=== PATIENT | male | born 1940 | race Caucasian/White ===

== ENCOUNTER 2017-12-14 07:40 | Day surgery (SDC) | payer MEDICARE ==
[2017-12-09 14:45] VITALS: BMI 29.4
[~2017-12-14 07:40] MED LIST: LACTATED RINGERS 1,000 ML IV SCH; LIDOCAINE 1% 20 ML VIAL (10MG/ML) FOR IV START INTRADERMA PRN; MIDAZOLAM 2 MG/2 ML VIAL IV PRN
[2017-12-14 08:20] VITALS: RESP 16; TEMP 98.4
[2017-12-14] MEDS ORDERED: LIDOCAINE 1% INJ 10MG/ML (20 ML MDV) ONE (08:43)
[2017-12-14] MEDS ORDERED: PROPOFOL 10 MG/ML 20 ML VIAL IV ONE (08:43)
--- NOTE | 2017-12-14 08:51 | P.GSHP ---
History of Present Illness H&P Date: 12/14/17 Chief Complaint: History of colon polyps This is a 69-year-old male who presents today for colonoscopy. Patient has had previous colonoscopy performed and a 4 hole system he is found have a large flat polyps in the ascending colon near the Ileocecal valve. Past Medical History Past Medical History: Cancer, CVA/TIA, Hyperlipidemia, Hypertension, Sleep Apnea /CPAP/BIPAP Additional Past Medical History / Comment(s): HX OF COLON POLYPS, HX OF DIVERTICULITUS, TIA UNKNOWN WHEN, HX OF THYROID CA, HX OF BPH History of Any Multi-Drug Resistant Organisms: None Reported Past Surgical History: Bowel Resection, Prostate Surgery Additional Past Surgical History / Comment(s): THYROIDECTOMY, PARATHYROID SX, TRIGGER FINGER X1, NASAL POLYPS, TURP, ELISABET CATARACTS Past Anesthesia/Blood Transfusion Reactions: No Reported Reaction Smoking Status: Former smoker - Past Family History Mother Family Medical History: Cancer Additional Family Medical History / Comment(s): PANCREATIC Brother(s) Family Medical History: Cancer Additional Family Medical History / Comment(s): PROSTATE Medications and Allergies Home Medications Medication Instructions Recorded Confirmed Type Aspirin [Adult Low Dose Aspirin EC] 81 mg PO DAILY 12/09/17 12/09/17 History Atenolol [Tenormin] 50 mg PO QAM 12/09/17 12/09/17 History Donepezil [Aricept] 10 mg PO HS 12/09/17 12/09/17 History Fluticasone Nasal [place] [Flonase 2 spr EA NOSTRIL DAILY 12/09/17 12/09/17 History Nasal [place]] L.acidoph,Paracasei, B.lactis 1 each PO DAILY 12/09/17 12/09/17 History [Probiotic] Levothyroxine Sodium [Synthroid] 125 mcg PO SUTUWETHSA 12/09/17 12/09/17 History Levothyroxine Sodium [Unithroid] 1.5 tab PO MOFR 12/09/17 12/09/17 History Polyethylene Glycol 3350 [Miralax] 17 gm PO DAILY 12/09/17 12/09/17 History Sertraline [Zoloft] 50 mg PO QAM 12/09/17 12/09/17 History Simvastatin [Zocor] 10 mg PO HS 12/09/17 12/09/17 History Triamterene/Hydrochlorothiazid 1 each PO QAM 12/09/17 12/09/17 History [Triamterene-Hctz 37.5-25 mg Tb] amLODIPine [Norvasc] 5 mg PO HS 12/09/17 12/09/17 History Allergies Allergy/AdvReac Type Severity Reaction Status Date / Time meperidine Allergy Nausea & Verified 12/14/17 07:54 Vomiting clarithromycin [From Biaxin] AdvReac "chest Verified 12/14/17 07:54 pain" Surgical - Exam Vital Signs Temp Pulse Resp BP Pulse Ox 98.4 F 60 16 136/78 100 12/14/17 08:19 12/14/17 08:19 12/14/17 08:19 12/14/17 08:19 12/14/17 08:19 - General well developed, no distress - Eyes PERRL - ENT normal pinna - Neck no masses - Respiratory normal expansion - Cardiovascular Rhythm: regular - Abdomen Abdomen: soft, non tender Assessment and Plan Assessment: History of colon polyps. We'll perform colonoscopy.
--- NOTE | 2017-12-14 09:02 | P.OP ---
Date of Procedure: 12/14/17 Preoperative Diagnosis: History of polyps Postoperative Diagnosis: Diverticulosis No recurrent colon polyps Procedure(s) Performed: Colonoscopy Anesthesia: MAC Surgeon: Angel Phoenix Pathology: other (Colon polyps) Condition: stable Disposition: PACU Description of Procedure: The patient's placed on the endoscopy table in the lateral position. He received IV sedation. Digital rectal exam was performed which revealed no abnormalities. The flexible colonoscope was then placed patient anus and passed throughout the entire colon. The ileocecal valve was visualized. The ileocecal valve and ascending colon were carefully examined. The patient a previous flat polyp seen near the ileocecal valve. There was no evidence of any polyp recurrence on today's colonoscopy. The scope was then withdrawn and there were a few scattered diverticuli and ascending colon. The transverse colon was examined there were no polyps seen. There was a few scattered diverticula. Scope was then brought back the descending; and there was a few scattered diverticuli were. There is no unsteady polyps. The scope was brought back the rectum and this appeared normal. Scope was withdrawn for patient.
[2017-12-14 09:40] VITALS: BP 131/62; PULSE 50
== END 2017-12-14 09:49 | disposition home or self-care (01) ==
LOC: ORWHC2ENDO 07:40 → MERGE 08:45 → ORWHC2ENDO 09:49
PROVIDERS: ATTEND Surgery
DX: K57.30 Diverticulosis of large intestine without perforation or abscess without bleeding (principal); I10 Essential (primary) hypertension; E78.5 Hyperlipidemia, unspecified; K21.9 Gastro-esophageal reflux disease without esophagitis; E89.0 Postprocedural hypothyroidism; Z86.010 Personal history of colon polyps; Z79.82 Long term (current) use of aspirin; Z87.891 Personal history of nicotine dependence; Z86.73 Personal history of transient ischemic attack (TIA), and cerebral infarction without residual deficits; Z85.850 Personal history of malignant neoplasm of thyroid; Z79.51 Long term (current) use of inhaled steroids; Z88.5 Allergy status to narcotic agent; Z88.1 Allergy status to other antibiotic agents
CPT/HCPCS: 45378; J2001; J2704

== ENCOUNTER → 2018-01-18 | Outpatient (CLI) | payer MEDICARE ==
--- NOTE | 2018-01-18 15:17 | CT ---
EXAMINATION TYPE: CT sinus wo con DATE OF EXAM: 01/18/2018 COMPARISON: NONE HISTORY: Sinusitis, polyps CT DLP: 632 mGycm CONTRAST: None The paranasal sinuses are examined in the axial plane at 2 mm thick sections. Reconstructed images i n the coronal plane were obtained. There is a retention cyst within the right maxillary sinus. Prior ethmoidectomies have been performed . There is diffuse mucosal thickening within ethmoid air cells bilaterally is may be slightly greater in the posterior left ethmoid air cells. The sphenoid sinuses are clear. Mild mucosal thickening i s within the left frontal sinus. The septum is evaluated. There is septal deviation to the right. The ostiomeatal units are patent. Prior uncinectomies are evident. IMPRESSIONS: 1. Mucosal thickening through ethmoid air cell regions, the left frontal sinus, in the right maxilla ry sinus. Some chronic sinusitis could be considered.
== END | disposition home or self-care (01) ==
LOC: RADCTMAIN 13:14
PROVIDERS: ATTEND Otolaryngology
DX: J32.0 Chronic maxillary sinusitis (principal); Z88.5 Allergy status to narcotic agent
CPT/HCPCS: 70486

== ENCOUNTER 2018-02-02 09:22 | Day surgery (SDC) | payer MEDICARE ==
[2018-01-27 13:08] VITALS: BMI 29.4
[~2018-02-02 09:22] MED LIST changes: +DEXAMETHASONE SOD PHOSPHATE 10 MG/ML 1 ML VIAL IV ONE; +DEXAMETHASONE SOD PHOSPHATE 4 MG/ML 1 ML VIAL IV ONE; +FAMOTIDINE 20 MG/2 ML VIAL IV ONE; -LIDOCAINE 1% 20 ML VIAL (10MG/ML) FOR IV START INTRADERMA PRN; +MELOXICAM 7.5 MG TAB PO ONE; +ONDANSETRON 4 MG/2 ML VIAL IVP ONE; +ceFAZolin 1,000 MG in DEXTROSE/WATER 1 50ML.BAG IV ONE; +fentaNYL (PF) 50 MCG/ML 2 ML AMP IV PRN
[2018-02-02] MEDS: OXYMETAZOLINE 0.05% NASL SPRAY 1 SPRAY BOTTLE NASAL ONE ×6 (09:54→15:20)
[2018-02-02] MEDS ORDERED: LIDOCAINE 1% 20 ML VIAL (10MG/ML) FOR IV START INTRADERMA ONE (10:01)
[2018-02-02] MEDS ORDERED: fentaNYL (PF) 50 MCG/ML 2 ML AMP ONE (11:15)
[2018-02-02] MEDS ORDERED: GLYCOPYRROLATE 0.2 MG/ML 2 ML VIAL ONE (11:15)
[2018-02-02] MEDS ORDERED: LIDOCAINE 1% INJ 10MG/ML (20 ML MDV) ONE (11:15)
[2018-02-02] MEDS ORDERED: PROPOFOL 10 MG/ML 20 ML VIAL IV ONE (11:15)
[2018-02-02] MEDS ORDERED: NEOSTIGMINE 1 MG/ML 10 ML VIAL ONE (11:15)
[2018-02-02] MEDS ORDERED: MIDAZOLAM 2 MG/2 ML VIAL ONE (11:15)
[2018-02-02] MEDS ORDERED: EPINEPHrine 1 MG/ML (MDV) 30 ML VIAL IRRIGATION ONE (11:55)
[2018-02-02] MEDS ORDERED: LIDOCAINE 1%-EPI 1:100,000 20 ML VIAL SQ ONE (11:55)
[2018-02-02] MEDS ORDERED: BUPIVACAINE (PF) 0.5% 30 ML VIAL SQ ONE (11:56)
[2018-02-02] MEDS ORDERED: FLUORESCEIN STRIPS 1 MG STRIP MISCELLANE ONE (11:56)
[2018-02-02] MEDS ORDERED: LACTATED RINGERS 1,000 ML IV ONE (12:40)
[2018-02-02 13:05] VITALS: TEMP 97.5
--- NOTE | 2018-02-02 13:09 | P.OP ---
Date of Procedure: 02/02/18 Preoperative Diagnosis: Chronic pansinusitis Sinonasal polyposis Deviated nasal septum Hypertrophy of bilateral inferior nasal turbinates Postoperative Diagnosis: Same Procedure(s) Performed: Bilateral functional endoscopic sinus surgery with insertion of propel and propel mini Septoplasty Polypectomy Bilateral submucosal resection of the inferior turbinates with outfracturing compression Anesthesia: MITZY Surgeon: Gabriel Cr Estimated Blood Loss (ml): 20 Pathology: other (sinonasal) Condition: stable Disposition: PACU Indications for Procedure: This patient is intolerant of his CPAP because of his persistent nasal obstruction he has no sense of smell is constant discolored drainage nasal congestion headaches facial pain etc. has had a lot of forehead pain in particular frontal sinuses and particularly has been tender. The patient's been on multiple antibiotics nasal sprays with no improvement he been on Flonase nasal spray and antibiotics with no improvement. After long discussion he wishes to proceed forward with a bilateral functional endoscopic sinus surgery with insertion of propel many's and propel along with a septoplasty and turbinate surgery. All risks, benefits, and alternative therapies were discussed. Consent was obtained and all questions were answered. Operative Findings: Patient had a deviated nasal septum widespread sinonasal polyposis and evidence of chronic pansinusitis. Large amount of pus and polyps were removed the frontal sinuses bilaterally. To maintain patency propel inserts were placed. Description of Procedure: This patient was taken to the operative room and placed in the supine position. A general inhalation anesthetic was administered to the patient by the department of anesthesia with a functioning IV line in place. The patient was monitored throughout the entire case by the department of anesthesia. The eyes were taped shut for protection. The patient was placed in a slight reverse Trendelenburg position. The patient had previously utilize Afrin nasal spray preoperatively. The nose was evaluated and the septum lateral nasal wall and inferior turbinates were injected with lidocaine 1% with epinephrine 1 100,000 bilaterally. Approximately 10 minutes were allowed wait for full vasoconstrictive effects to take place. At this point a caudal incision was made over the caudal portion of the left septum down to the mucoperichondrium. A mucoperichondrial flap was elevated on the left side and dissection was carried with use of tunnels posteriorly. We then made a crossover incision through the cartilage to the contralateral side and for the mucoperichondrial flap development was performed to the extent of visualization on the contralateral side. After the cartilage was freed with use of several crosshatching incisions and removal of some redundant strips of septal cartilage, the septum was straightened and placed back in the midline. The septum was sutured fixated to the ovarian groove. Excellent straightening occurred and the septum was visibly straight. Incision was closed with a 40 rapid Vicryl. We utilized a running nonlocking fashion for closure of the incision. A quilting stitch was used to reapproximate the septal flaps with use of a 40 rapid Vicryl. We then entered the nose with a 0 and 30 [employer] meanuel endoscope. Previous to this we did inject the lateral nasal wall and middle turbinate and uncinate process with lidocaine 1% with epinephrine 1 100,000. Approximately 10 minutes were allowed wait for full vasoconstrictive effects to take place. Intranasal polyps were noted. They were noted bilaterally. The intranasal polyps were removed with use of a microdebrider. With use of a microdebrider and a pediatric backbiter, we took down the uncinate process bilaterally. We then opened the maxillary sinuses bilaterally. We utilized a microdebrider for this and entered the maxillary sinuses and removed diseased tissue and polypoid tissue. This was done bilaterally. After the maxillary sinuses were opened and the diseased tissue and polyps were removed we entered the ethmoid bulla and with use of a microdebrider and up-biting Vandana, we remove the anterior septations and remove diseased tissue from the anterior ethmoids with direct visualization. We then followed the fovea frontalis through the basal lamella and into the posterior ethmoid air cells and did a total ethmoidectomy with removal of polypoid material. A right-sided growth was removed from the medial wall. Once the ethmoids cells were all taken down we then entered the sphenoid sinus medially and inferiorly underneath the inferior attachment of the superior turbinate. The sphenoid sinus was opened entered and diseased tissue and polyps were removed bilaterally. This was done with a microdebrider and [place]. We then entered the frontal sinuses with a giraffe and up- biting Blakesley entered on the agar nasi cells. We open the frontal sinuses and removed sinus tissue and polypoid tissue that was diseased. We utilized the a clear balloon for assistance but did remove polypoid tissue surrounding the ostium that was ballooned open for better visualization. A propel many was inserted into the frontal sinuses. And we also inserted standard propel's bilaterally at the end the case with Celi. We explored the frontal sinuses bilaterally. To summarize all sinuses were open all sinuses were explored and we remove diseased tissue and polyps from the sphenoid maxillary and frontal sinuses. Polyps were removed from the nose. Ethmoid sinuses were opened totally. Nasal pore was inserted and minimal bleeding was encountered. We reinspected the skull base there is no signs of any orbital penetration or signs of any intracranial penetration. The sugical site was reinspected after the xerogel and Celi and propel and propel many's were inserted. Was placed and no bleeding was seen. Attention was then paid to the inferior turbinates. The bilateral inferior turbinates were hypertrophic and obstructive. We entered the anterior portion of the inferior turbinates with use of a microdebrider. We remove bone and submucosal elements with use of a microdebrider bilaterally. The inferior turbinates underwent a submucosal resection with removal of submucosal tissue and bone. We obtained a much better and normal in size for breathing. The inferior turbinates were then outfractured and compressed with a Boyes nasal elevator. Excellent airway was obtained and was symmetric bilaterally. No bleeding was encountered. .
[2018-02-02 13:18] VITALS: RESP 18
[2018-02-02] MEDS ORDERED: HYDROcodone/APAP 5-325MG 1 EACH TAB PO ONE (14:30)
[2018-02-02 15:25] VITALS: BP 133/70; PULSE 66
== END 2018-02-02 16:06 | disposition home or self-care (01) ==
LOC: OR 09:22
PROVIDERS: ATTEND Otolaryngology
DX: J32.4 Chronic pansinusitis (principal); J33.8 Other polyp of sinus; J33.9 Nasal polyp, unspecified; J34.2 Deviated nasal septum; J34.3 Hypertrophy of nasal turbinates; H26.9 Unspecified cataract; E78.00 Pure hypercholesterolemia, unspecified; H91.90 Unspecified hearing loss, unspecified ear; I10 Essential (primary) hypertension; G47.33 Obstructive sleep apnea (adult) (pediatric); Z85.850 Personal history of malignant neoplasm of thyroid; Z85.828 Personal history of other malignant neoplasm of skin; Z86.73 Personal history of transient ischemic attack (TIA), and cerebral infarction without residual deficits; Z79.82 Long term (current) use of aspirin; Z79.890 Hormone replacement therapy; Z79.51 Long term (current) use of inhaled steroids; Z79.899 Other long term (current) drug therapy; Z88.5 Allergy status to narcotic agent; Z88.1 Allergy status to other antibiotic agents; Z87.891 Personal history of nicotine dependence
CPT/HCPCS: 88305; 30520; 30140; 31276; 31267; 31257; C2625 ×2; J0171; J2250; J1100; J2710; J2405; J2001; J3010; J0690; J2704

== ENCOUNTER → 2018-04-25 | Outpatient (CLI) | payer MEDICARE ==
[2018-04-25 14:10] LABS: T4, Free (Free Thyroxine) 1.56 ng/dL (0.78-2.19)
== END | disposition home or self-care (01) ==
LOC: LABWHC1 12:36
PROVIDERS: ATTEND Psychiatry & Neurology Neurology
DX: R41.3 Other amnesia (principal)
CPT/HCPCS: 36415; 82607; 82747; 84439; 84443; 85652

== ENCOUNTER → 2018-05-10 | Outpatient (CLI) | payer MEDICARE ==
--- NOTE | 2018-05-10 13:25 | MR ---
MR brain without contrast HISTORY: I 63.40, R 41.3, cerebral infarction Multiplanar multisequence imaging through the brain Comparison to CT sinus 01/18/2018 There is no restricted diffusion. There is some focal encephalomalacia in the periventricular white m atter adjacent to the corpus callosum to the right of midline, corresponding hyperintensity is presen t on inversion recovery T2-weighted sequences suggesting some local gliosis. Region measures approxim ately 13 mm in greatest dimension There is no hemorrhage or hydrocephalus. There are normal vascular flow voids. Cortical atrophy is present. Mucosal disease present within the maxillary sinuses, ethmoi d air cells. Orbits show symmetric appearance. Corpus callosum, pituitary, cervical medullary junctio n, cerebellopontine angles are normal. IMPRESSION: Findings of encephalomalacia as described could represent chronic small vessel ischemic c sonia. Mild mucosal disease within the sinuses.
== END | disposition home or self-care (01) ==
LOC: RADMRIMAIN 11:43
PROVIDERS: ATTEND Psychiatry & Neurology Neurology
DX: G93.89 Other specified disorders of brain (principal)
CPT/HCPCS: 70551

== ENCOUNTER → 2018-09-11 | Outpatient (CLI) | payer MEDICARE ==
[2018-09-11 15:56] LABS: Basophils # (A) 0.1 k/uL (0-0.2); Basophils % (A) 1 %; Eosinophils # (A) 0.1 k/uL (0-0.7); Eosinophils % (A) 2 %; HCT 41.6 % (39.0-53.0); HGB 13.5 gm/dL (13.0-17.5); Lymphocytes # (A) 1.8 k/uL (1.0-4.8); Lymphocytes % (A) 31 %; MCH 29.8 pg (25.0-35.0); MCHC 32.4 g/dL (31.0-37.0); MCV 92.1 fL (80.0-100.0); Mean Platelet Volume 7.1; Monocytes # (A) 0.3 k/uL (0-1.0); Monocytes % (A) 5 %; Neutrophils # (A) 3.5 k/uL (1.3-7.7); Neutrophils % (A) 59 %; Platelet Count 187 k/uL (150-450); RBC 4.52 m/uL (4.30-5.90); RDW 13.6 % (11.5-15.5); WBC 5.9 k/uL (3.8-10.6)
[2018-09-12 01:52] LABS: Albumin 4.3 g/dL (3.80-4.90); Albumin/Globulin Ratio 1.79 (1.60-3.17); Anion Gap 10.1 mmol/L (4.00-12.00); Calcium 9.1 mg/dL (8.7-10.3); Carbon Dioxide 27.9 mmol/L (21.6-31.8); Globulin 2.4 g/dL (1.6-3.3); LDL Cholesterol,Calculated 86.6 mg/dL (0.0-131.0); Magnesium 2.1 mg/dL (1.5-2.4); Potassium 3.9 mmol/L (3.5-5.5); Total Bilirubin 0.8 mg/dL (0.3-1.2); Total Protein 6.7 g/dL (6.2-8.2); VLDL Calculation 10.4 mg/dL (5.00-40.00)
[2018-09-12 02:01] LABS: T4, Free (Free Thyroxine) 1.4 ng/dL (0.80-1.80)
== END | disposition home or self-care (01) ==
LOC: LABWHC1 14:07
PROVIDERS: ATTEND Family Medicine
DX: N40.0 Benign prostatic hyperplasia without lower urinary tract symptoms (principal); E03.8 Other specified hypothyroidism; R25.2 Cramp and spasm; E78.5 Hyperlipidemia, unspecified; R42 Dizziness and giddiness; Z12.5 Encounter for screening for malignant neoplasm of prostate; Z98.890 Other specified postprocedural states
CPT/HCPCS: 84439; 80061; 80053; 83735; 84443; 85025; 83970; 36415; G0103

== ENCOUNTER → 2018-09-26 | Outpatient (CLI) | payer MEDICARE ==
--- NOTE | 2018-09-27 14:37 | US ---
EXAMINATION TYPE: US thyroid st tissue head/neck DATE OF EXAM: 09/26/2018 COMPARISON: NONE CLINICAL HISTORY: E21.3 Hyperthyroidism. History of thyroid CA, history of thyroidectomy, on thyroid meds MEASUREMENTS: GLAND SIZE: Right Lobe: surgically absent Left Lobe: surgically absent Isthmus Thickness: surgically absent NODULES RIGHT: surgically absent LEFT: surgically absent ISTHMUS: surgically absent Bilateral neck scanned, no evidence of lymphadenopathy. IMPRESSION: 1. No recurrent masses in the thyroid bed by ultrasound.
== END | disposition home or self-care (01) ==
LOC: RADUSWWP 16:40
PROVIDERS: ATTEND Family Medicine
DX: E21.3 Hyperparathyroidism, unspecified (principal)
CPT/HCPCS: 76536

== ENCOUNTER → 2018-12-07 | Outpatient (CLI) | payer MEDICARE ==
[2018-12-07 14:15] LABS: Basophils # (A) 0.1 k/uL (0-0.2); Basophils % (A) 1 %; Eosinophils # (A) 0.2 k/uL (0-0.7); Eosinophils % (A) 3 %; HCT 40.6 % (39.0-53.0); HGB 13.3 gm/dL (13.0-17.5); Lymphocytes # (A) 1.6 k/uL (1.0-4.8); Lymphocytes % (A) 24 %; MCH 30.7 pg (25.0-35.0); MCHC 32.8 g/dL (31.0-37.0); MCV 93.7 fL (80.0-100.0); Mean Platelet Volume 6.8; Monocytes # (A) 0.4 k/uL (0-1.0); Monocytes % (A) 6 %; Neutrophils # (A) 4.2 k/uL (1.3-7.7); Neutrophils % (A) 63 %; Platelet Count 193 k/uL (150-450); RBC 4.33 m/uL (4.30-5.90); RDW 13.4 % (11.5-15.5); WBC 6.6 k/uL (3.8-10.6)
[2018-12-07 18:05] LABS: Albumin 4.4 g/dL (3.80-4.90); Anion Gap 6.6 mmol/L (4.00-12.00); Carbon Dioxide 30.4 mmol/L (21.6-31.8); Globulin 2.2 g/dL (1.6-3.3); Potassium 3.4 mmol/L (3.5-5.5); Total Bilirubin 0.8 mg/dL (0.3-1.2); Total Protein 6.6 g/dL (6.2-8.2)
[2018-12-07 18:13] LABS: T4, Free (Free Thyroxine) 1.3 ng/dL (0.80-1.80)
[2018-12-07 18:25] LABS: Parathyroid Hormone Intact 77.9 pg/mL (14.0-72.0)
== END | disposition home or self-care (01) ==
LOC: LABWHC1 13:27
PROVIDERS: ATTEND Family Medicine
DX: R53.83 Other fatigue (principal); E03.8 Other specified hypothyroidism; E21.3 Hyperparathyroidism, unspecified
CPT/HCPCS: 36415; 80053; 82607; 83970; 84439; 84443; 85025

== ENCOUNTER 2019-07-19 15:04 | Observation (INO) | payer MEDICARE ==
[2019-07-19] MEDS ORDERED: ASPIRIN 81 MG PO STA (15:19)
[2019-07-19] MEDS ORDERED: NITROGLYCERIN OINT 1 INCH/GM PACKET TOPICAL STA (15:19)
--- NOTE | 2019-07-19 15:33 | ED ---
General Adult HPI - General Chief complaint: Chest Pain Stated complaint: chest pain/abnormal EKG Time Seen by Provider: 07/19/19 15:10 Source: patient, RN notes reviewed, old records reviewed Mode of arrival: ambulatory Limitations: no limitations - History of Present Illness Initial comments: This is a 78-year-old male who presents emergency Department complaining of some chest pain is started about 2:45. 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 Patient states he still having a little chest pain at this time per patient denies radiation of the pain. Patient denies any shortness of breath. Patient denies any diaphoretic episodes. Patient denies any nausea. Patient denies any abdominal pain. Patient denies any recent fever chills or cough. Patient states he does have high blood pressure high cholesterol. Patient states he's had no previous heart issues. Patient denies any swelling to his legs or calf tenderness. - Related Data Home Medications Medication Instructions Recorded Confirmed Aspirin [Adult Low Dose Aspirin EC] 81 mg PO DAILY 12/09/17 01/27/18 Atenolol [Tenormin] 50 mg PO QAM 12/09/17 01/27/18 Donepezil [Aricept] 10 mg PO HS 12/09/17 02/02/18 Fluticasone Nasal [place] [Flonase 2 spr EA NOSTRIL DAILY 12/09/17 02/02/18 Nasal [place]] L.acidoph,Paracasei, B.lactis 1 each PO DAILY 12/09/17 02/02/18 [Probiotic] Levothyroxine Sodium [Synthroid] 125 mcg PO SUTUWETHSA 12/09/17 01/27/18 Levothyroxine Sodium [Unithroid] 1.5 tab PO MOFR 12/09/17 02/02/18 Polyethylene Glycol 3350 [Miralax] 17 gm PO DAILY 12/09/17 02/02/18 Sertraline [Zoloft] 50 mg PO QAM 12/09/17 02/02/18 Simvastatin [Zocor] 10 mg PO HS 12/09/17 02/02/18 Triamterene/Hydrochlorothiazid 1 each PO QAM 12/09/17 02/02/18 [Triamterene-Hctz 37.5-25 mg Tb] amLODIPine [Norvasc] 5 mg PO HS 12/09/17 01/27/18 Vit C/E/Zn/Coppr/Lutein/Zeaxan 2 each PO PC-SUPPER 01/27/18 01/27/18 [Preservision Areds 2 Softgel] Previous Rx's Medication Instructions Recorded Amoxicillin/Potassium Clav 1 each PO Q12HR #20 tab 02/02/18 [Augmentin 875-125 Tablet] HYDROcodone/APAP 5-325MG [[place] 1 - 2 tab PO Q4-6H PRN 3 Days #36 02/02/18 5-325] tab Meloxicam [Mobic] 15 mg PO DAILY #10 tab 02/02/18 predniSONE 20 mg PO DIRECTED #15 tab 02/02/18 Allergies Allergy/AdvReac Type Severity Reaction Status Date / Time meperidine Allergy Nausea & Verified 07/19/19 15:09 Vomiting clarithromycin [From Biaxin] AdvReac "chest Verified 07/19/19 15:09 pain" Review of Systems ROS Statement: Those systems with pertinent positive or pertinent negative responses have been documented in the HPI. ROS Other: All systems not noted in ROS Statement are negative. Past Medical History Past Medical History: Cancer, CVA/TIA, Hyperlipidemia, Hypertension, Sleep Apnea/CPAP/BIPAP Additional Past Medical History / Comment(s): HX OF COLON POLYPS, HX OF DIVERTICULITUS, TIA UNKNOWN WHEN, HX OF THYROID CA, HX OF BPH History of Any Multi-Drug Resistant Organisms: None Reported Past Surgical History: Bowel Resection, Prostate Surgery Additional Past Surgical History / Comment(s): THYROIDECTOMY, PARATHYROID SX, TRIGGER FINGER X1, NASAL POLYPS, TURP, ELISABET CATARACTS Past Anesthesia/Blood Transfusion Reactions: No Reported Reaction Past Psychological History: Anxiety Smoking Status: Never smoker Past Alcohol Use History: None Reported Past Drug Use History: None Reported - Past Family History Mother Family Medical History: Cancer Additional Family Medical History / Comment(s): PANCREATIC Brother(s) Family Medical History: Cancer Additional Family Medical History / Comment(s): PROSTATE General Exam - General Exam Comments Initial Comments: GENERAL: Patient is well-developed and well-nourished. Patient is nontoxic and well- hydrated and is in mild distress. ENT: Neck is soft and supple. No significant lymphadenopathy is noted. Oropharynx is clear. Moist mucous membranes. Neck has full range of motion without eliciting any pain. EYES: The sclera were anicteric and conjunctiva were pink and moist. Extraocular movements were intact and pupils were equal round and reactive to light. Eyelids were unremarkable. PULMONARY: Unlabored respirations. Good breath sounds bilaterally. No audible rales rhonchi or wheezing was noted. CARDIOVASCULAR: There is a regular rate and rhythm without any murmurs gallops or rubs. ABDOMEN: Soft and nontender with normal bowel sounds. SKIN: Skin is clear with no lesions or rashes and otherwise unremarkable. NEUROLOGIC: Patient is alert and oriented x3. Cranial nerves II through XII are grossly intact. Motor and sensory are also intact. Normal speech, volume and content. Symmetrical smile. MUSCULOSKELETAL: Normal extremities with adequate strength and full range of motion. No lower extremity swelling or edema. No calf tenderness. LYMPHATICS: No significant lymphadenopathy is noted PSYCHIATRIC: Normal psychiatric evaluation. Limitations: no limitations Course Vital Signs 07/19/19 07/19/19 07/19/19 15:07 15:09 15:17 Temperature 97.9 F Pulse Rate 57 L 57 L Pulse Rate [ 59 L Pulse Oximetery ] Respiratory 20 15 15 Rate Blood Pressure 147/76 153/83 O2 Sat by Pulse 99 97 Oximetry 07/19/19 16:09 Temperature 98.6 F Pulse Rate 59 L Pulse Rate [ Pulse Oximetery ] Respiratory 16 Rate Blood Pressure 153/83 O2 Sat by Pulse 99 Oximetry Medical Decision Making - Medical Decision Making EKG shows sinus bradycardia 59 bpm LA interval 276 QRS is under 4 QT interval is 472 QTC is 467. Patient's EKG shows flattening of the T-wave in lead 3 other than that the EKG shows no acute abnormality. Chest x-ray shows no acute abnormality. Patient had Nitropaste placed and patient's chest pain was abated. I spoke to his primary medical care doctor he wanted the patient admitted. I spoke with some physicians they wanted the patient admitted admitted the patient I consult cardiology. - Lab Data Result diagrams: 07/19/19 15:30 07/19/19 15:30 Lab Results 07/19/19 07/19/19 07/19/19 Range/Units 15:30 15:30 15:30 WBC 6.4 (3.8-10.6) k/uL RBC 4.67 (4.30-5.90) m/uL Hgb 14.3 (13.0-17.5) gm/dL Hct 43.0 (39.0-53.0) % MCV 92.1 (80.0-100.0) fL MCH 30.6 (25.0-35.0) pg MCHC 33.2 (31.0-37.0) g/dL RDW 13.2 (11.5-15.5) % Plt Count 193 (150-450) k/uL Neutrophils % 63 % Lymphocytes % 25 % Monocytes % 6 % Eosinophils % 3 % Basophils % 1 % Neutrophils # 4.0 (1.3-7.7) k/uL Lymphocytes # 1.6 (1.0-4.8) k/uL Monocytes # 0.4 (0-1.0) k/uL Eosinophils # 0.2 (0-0.7) k/uL Basophils # 0.1 (0-0.2) k/uL PT 10.5 (9.0-12.0) sec INR 1.0 (<1.2) APTT 23.6 (22.0-30.0) sec Sodium 140 (137-145) mmol/L Potassium 3.4 L (3.5-5.1) mmol/L Chloride 104 (98-107) mmol/L Carbon Dioxide 29 (22-30) mmol/L Anion Gap 7 mmol/L BUN 19 (9-20) mg/dL Creatinine 1.17 (0.66-1.25) mg/dL Est GFR (CKD-EPI)AfAm 68 (>60 ml/min/1.73 sqM) Est GFR (CKD-EPI)NonAf 59 (>60 ml/min/1.73 sqM) Glucose 92 (74-99) mg/dL Calcium 9.8 (8.4-10.2) mg/dL Magnesium 2.2 (1.6-2.3) mg/dL Total Bilirubin 0.9 (0.2-1.3) mg/dL AST 33 (17-59) U/L ALT 24 (4-49) U/L Alkaline Phosphatase 88 (38-126) U/L Troponin I (0.000-0.034) ng/mL Total Protein 8.1 (6.3-8.2) g/dL Albumin 4.8 (3.5-5.0) g/dL 07/19/19 Range/Units 15:30 WBC (3.8-10.6) k/uL RBC (4.30-5.90) m/uL Hgb (13.0-17.5) gm/dL Hct (39.0-53.0) % MCV (80.0-100.0) fL MCH (25.0-35.0) pg MCHC (31.0-37.0) g/dL RDW (11.5-15.5) % Plt Count (150-450) k/uL Neutrophils % % Lymphocytes % % Monocytes % % Eosinophils % % Basophils % % Neutrophils # (1.3-7.7) k/uL Lymphocytes # (1.0-4.8) k/uL Monocytes # (0-1.0) k/uL Eosinophils # (0-0.7) k/uL Basophils # (0-0.2) k/uL PT (9.0-12.0) sec INR (<1.2) APTT (22.0-30.0) sec Sodium (137-145) mmol/L Potassium (3.5-5.1) mmol/L Chloride (98-107) mmol/L Carbon Dioxide (22-30) mmol/L Anion Gap mmol/L BUN (9-20) mg/dL Creatinine (0.66-1.25) mg/dL Est GFR (CKD-EPI)AfAm (>60 ml/min/1.73 sqM) Est GFR (CKD-EPI)NonAf (>60 ml/min/1.73 sqM) Glucose (74-99) mg/dL Calcium (8.4-10.2) mg/dL Magnesium (1.6-2.3) mg/dL Total Bilirubin (0.2-1.3) mg/dL AST (17-59) U/L ALT (4-49) U/L Alkaline Phosphatase (38-126) U/L Troponin I <0.012 (0.000-0.034) ng/mL Total Protein (6.3-8.2) g/dL Albumin (3.5-5.0) g/dL Disposition Clinical Impression: Chest pain Disposition: ADMITTED IP TO THIS HOSP Referrals: Tejas Coto [Primary Care Provider] - 1-2 days Time of Disposition: 17:17
[2019-07-19 15:40] LABS: Basophils # (A) 0.1 k/uL (0-0.2); Basophils % (A) 1 %; Eosinophils # (A) 0.2 k/uL (0-0.7); Eosinophils % (A) 3 %; HGB 14.3 gm/dL (13.0-17.5); Lymphocytes # (A) 1.6 k/uL (1.0-4.8); Lymphocytes % (A) 25 %; MCH 30.6 pg (25.0-35.0); MCHC 33.2 g/dL (31.0-37.0); MCV 92.1 fL (80.0-100.0); Mean Platelet Volume 7.6; Monocytes # (A) 0.4 k/uL (0-1.0); Monocytes % (A) 6 %; Neutrophils % (A) 63 %; Platelet Count 193 k/uL (150-450); RBC 4.67 m/uL (4.30-5.90); RDW 13.2 % (11.5-15.5); WBC 6.4 k/uL (3.8-10.6)
[2019-07-19 15:51] LABS: Albumin 4.8 g/dL (3.5-5.0); Calcium 9.8 mg/dL (8.4-10.2); Magnesium 2.2 mg/dL (1.6-2.3); Potassium 3.4 mmol/L (3.5-5.1); Total Bilirubin 0.9 mg/dL (0.2-1.3); Total Protein 8.1 g/dL (6.3-8.2)
[2019-07-19 15:52] LABS: Partial Thromboplastin Time 23.6 sec (22.0-30.0); Prothrombin Time 10.5 sec (9.0-12.0)
--- NOTE | 2019-07-19 15:59 | XR ---
EXAMINATION TYPE: XR chest 2V DATE OF EXAM: 07/19/2019 COMPARISON: NONE HISTORY: Shortness of breath TECHNIQUE: Frontal and lateral views of the chest are obtained. FINDINGS: Scattered senescent parenchymal changes noted. Hyperinflation compatible with COPD. No evidence for infiltrate. No evidence for atelectasis. Heart size is stable. Mediastinal structures are stable and grossly unremarkable. No evidence for hilar prominence. Degenerative changes dorsal spine. IMPRESSION: 1. No evidence for acute pulmonary disease.
[2019-07-19] MEDS ORDERED: NITROGLYCERIN SL TABS 0.4 MG TAB SUBLINGUAL PRN (17:18)
[2019-07-19] MEDS ORDERED: NALOXONE 0.4 MG/ML 1 ML VIAL IV PRN (17:56)
[2019-07-19] MEDS ORDERED: POTASSIUM CHLORIDE ER 20 MEQ TAB.ER PO STA (17:56)
[2019-07-19] MEDS ORDERED: ACETAMINOPHEN TAB 325 MG TAB PO PRN (17:56)
--- NOTE | 2019-07-19 18:10 | P.HPIM ---
History of Present Illness H&P Date: 07/19/19 Chief Complaint: Chest pain 78-year-old male with PMH of hypertension, hypothyroidism, thyroid cancer post thyroidectomy, dyslipidemia presents to the ED for chest pain. Patient has been experiencing chest pain that has been ongoing over the past year. He points to the left side of his chest and states that it feels like muscular soreness. Pain occurs twice a week and usually lasts for 1 hour at a time. Patient denies any relation of the pain to exertion. Pain is not aggravated with deep inspiration. Of note, patient has been undergoing physical therapy over the past month. Patient states the pain can occur at any time. Pain is nonradiating. There are no alleviating or aggravating factors. The severity of his pain is 2 out of 10. Of note, patient does report lightheadedness and generalized weakness that has been ongoing for the past few months. Patient states that his lightheadedness was due to under titration of his levothyroxine. His PCP has been titrating his levothyroxine and patient has experienced an improvement in symptoms. Patient denies any headache, lower extremity edema, nausea or vomiting, fever or chills, cough, shortness of breath, palpitations, changes in urination or bowel habits. No changes in appetite or weight. Patient denies any numbness/weakness/tingling of the extremities. He does report a history of smoking but quit 40-50 years ago. He does report socially drinking alcohol. In the ED, vital signs were stable. CBC was unremarkable. Coagulation panel was negative. CMP showed potassium of 3.4. Troponin was also 0.012 with EKG showing sinus bradycardia. Chest x-ray was negative. Patient is admitted for chest pain, rule out acute coronary syndrome, cardiology on consult. Review of Systems Pertinent positives and negatives as discussed in HPI, a complete review of systems was performed and all other systems are negative. Past Medical History Past Medical History: Cancer, CVA/TIA, Hyperlipidemia, Hypertension, Sleep Apnea/CPAP/BIPAP Additional Past Medical History / Comment(s): HX OF COLON POLYPS, HX OF DIVERTICULITUS, TIA UNKNOWN WHEN, HX OF THYROID CA, HX OF BPH History of Any Multi-Drug Resistant Organisms: None Reported Past Surgical History: Bowel Resection, Prostate Surgery Additional Past Surgical History / Comment(s): THYROIDECTOMY, PARATHYROID SX, TRIGGER FINGER X1, NASAL POLYPS, TURP, ELISABET CATARACTS Past Anesthesia/Blood Transfusion Reactions: No Reported Reaction Past Psychological History: Anxiety Smoking Status: Never smoker Past Alcohol Use History: None Reported Past Drug Use History: None Reported - Past Family History Mother Family Medical History: Cancer Additional Family Medical History / Comment(s): PANCREATIC Brother(s) Family Medical History: Cancer Additional Family Medical History / Comment(s): PROSTATE Medications and Allergies Home Medications Medication Instructions Recorded Confirmed Type Aspirin [Adult Low Dose Aspirin EC] 81 mg PO DAILY 12/09/17 07/19/19 History Atenolol [Tenormin] 50 mg PO QAM 12/09/17 07/19/19 History Donepezil [Aricept] 10 mg PO HS 12/09/17 07/19/19 History Fluticasone Nasal [place] [Flonase 2 spr EA NOSTRIL DAILY 12/09/17 07/19/19 History Nasal [place]] Polyethylene Glycol 3350 [Miralax] 17 gm PO DAILY 12/09/17 07/19/19 History Sertraline [Zoloft] 50 mg PO QAM 12/09/17 07/19/19 History Simvastatin [Zocor] 10 mg PO HS 12/09/17 07/19/19 History Triamterene/Hydrochlorothiazid 1 tab PO QAM 12/09/17 07/19/19 History [Triamterene-Hctz 37.5-25 mg Tb] amLODIPine [Norvasc] 5 mg PO HS 12/09/17 07/19/19 History Vit C/E/Zn/Coppr/Lutein/Zeaxan 1 cap PO PC-SUPPER 01/27/18 07/19/19 History [Preservision Areds 2 Softgel] Levothyroxine Sodium [Synthroid] 112 mcg PO DAILY 07/19/19 07/19/19 History Allergies Allergy/AdvReac Type Severity Reaction Status Date / Time meperidine Allergy Nausea & Verified 07/19/19 17:54 Vomiting clarithromycin [From Biaxin] AdvReac "chest Verified 07/19/19 17:54 pain" Physical Exam Vitals: Vital Signs Temp Pulse Pulse Resp BP Pulse Ox 07/19/19 16:09 98.6 F 59 L 16 153/83 99 07/19/19 15:17 59 L 15 07/19/19 15:09 57 L 15 153/83 97 07/19/19 15:07 97.9 F 57 L 20 147/76 99 Intake and Output 07/19/19 07/19/19 07/19/19 06:59 14:59 22:59 Other: Weight 93.894 kg General: [non toxic], [no distress], [appears at stated age] Derm: [warm], [dry] Head: [atraumatic], [normocephalic], [symmetric] Eyes: [EOMI], [no lid lag], [anicteric sclera] Mouth: [no lip lesion], [mucus membranes moist] Cardiovascular: [S1S2 reg], [bradycardia], [positive DP pulse bilateral], Lungs: [CTA bilateral], [no rhonchi, no rales] , [no accessory muscle use] Abdominal: [soft], [ nontender to palpation], [no guarding], [no appreciable organomegaly] Ext: [no gross muscle atrophy], [no edema], [no contractures] Neuro: [ CN II-XI grossly intact], [no focal neuro deficits] Psych: [Alert], [oriented], [appropriate affect] Results CBC & Chem 7: 07/19/19 15:30 07/19/19 15:30 Labs: Abnormal Lab Results - Last 24 Hours (Table) 07/19/19 Range/Units 15:30 Potassium 3.4 L (3.5-5.1) mmol/L Assessment and Plan Assessment: Assessment and Plan Chest pain Hypokalemia Hypertension Hypothyroidism Dyslipidemia Troponin less than 0.012 with EKG showing sinus bradycardia. It appears to be musculoskeletal via history. Plans: Trend troponin/EKG to rule out ACS. Continue aspirin and Lipitor. Continue beta lukasz. Telemetry monitoring. Follow echocardiogram. Follow-up cardiology consultation. Potassium 3.4. Plans: Replace orally. Repeat BMP in the morning. BP 153/83. Plans: Continue amlodipine, atenolol, hydrochlorothiazide with t riamterene. Monitor vitals, adjust medications as necessary. Plans: Resume Synthroid. Plans: Resume Lipitor. DVT prophylaxis: [SCD] Discussed with: [Patient and family] Anticipated discharge: [1-2 days] Anticipated discharge place: [Home] A total of [45] minutes was spent on the care of this complex patient more than 50% of the time was spent in counseling and care coordination. Patient names his Ayaka decision maker indicates that he can't make decis ions for himself. Patient reiterates wanting to remain full code.
[2019-07-19] MEDS ORDERED: ATORVASTATIN 10 MG TAB PO SCH (21:00)
[2019-07-19] MEDS ORDERED: amLODIPine 5 MG TAB PO SCH (21:00)
[2019-07-19] MEDS ORDERED: DONEPEZIL 10 MG TAB PO SCH (21:00)
[2019-07-19] MEDS: NITROGLYCERIN OINT 1 INCH/GM PACKET TOPICAL SCH (23:29)
[2019-07-20 04:58] LABS: Calcium 9.1 mg/dL (8.4-10.2); Potassium 3.5 mmol/L (3.5-5.1)
[2019-07-20] MEDS: NITROGLYCERIN OINT 1 INCH/GM PACKET TOPICAL SCH ×3 (05:54→10:44)
[2019-07-20 06:19] LABS: HCT 35.7 % (39.0-53.0); MCH 31.2 pg (25.0-35.0); MCHC 33.7 g/dL (31.0-37.0); MCV 92.6 fL (80.0-100.0); Mean Platelet Volume 7.6; Platelet Count 155 k/uL (150-450); RBC 3.85 m/uL (4.30-5.90); RDW 13.2 % (11.5-15.5); WBC 6.3 k/uL (3.8-10.6)
[2019-07-20] MEDS ORDERED: LEVOTHYROXINE 112 MCG TAB PO SCH (06:30)
[2019-07-20 06:36] LABS: Calcium 9.2 mg/dL (8.4-10.2); Potassium 3.4 mmol/L (3.5-5.1)
--- NOTE | 2019-07-20 08:26 | P.CRDCN ---
History of Present Illness Consult date: 07/20/19 Requesting physician: Paulina Llamas Chief complaint: Lightheadedness, tiredness History of present illness: This is a pleasant 78-year-old gentleman with history of thyroid cancer, post-thyroidectomy, hyperlipidemia, hypertension, according to the patient, he went to see his primary care doctor for routine physical, he states that he's been quite lightheaded and tired recently and having episodes of dizz iness. According to the emergency room note and H&P, patient had stated that he been having chest pain, he does have some issues with memory, however when I examined him and took his history he denied having any chest discomfort at all. He basically complains of lightheadedness, intermittent dizziness and tiredness. He does have a history of smoking, quit 40-50 years ago, he socially drinks alc ohol. According to the patient, his thyroid levels have been low and they have adjusted recently his dose of Synthroid. An EKG was performed at his primary care doctor's office, it showed some concern to the doctor and he referred the patient to come to the emergency room to be admitted. His chest x-ray performed here did not show any evidence for acute pulmonary disease. His EKG shows a sinus bradycardia with no acute changes. I pressure on arrival here 147/76 with a heart rate in the 50s, 99% on room air. Blood pressure this morning 106/50 with a heart rate in the 80s, 95% on room air. White blood cell count 6.3, hemoglobin 12.0, platelet count 155. Sodium 140, potassium 3.4, BUN 22, creatinine 1.0. Troponins are negative 3. At the time of my examination this morning, patient complains of feeling mildly tired, otherwise no complaints. 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 Additional Past Medical History / Comment(s): HX OF COLON POLYPS, HX OF DIVERTICULITUS, TIA UNKNOWN WHEN, HX OF THYROID CA, HX OF BPH History of Any Multi-Drug Resistant Organisms: None Reported Past Surgical History: Bowel Resection, Prostate Surgery Additional Past Surgical History / Comment(s): THYROIDECTOMY, PARATHYROID SX, TRIGGER FINGER X1, NASAL POLYPS, TURP, ELISABET CATARACTS Past Anesthesia/Blood Transfusion Reactions: No Reported Reaction Past Psychological History: Anxiety Smoking Status: Never smoker Past Alcohol Use History: None Reported Additional Past Alcohol Use History / Comment(s): QUIT SMOKING 1977, SMOKED 1PPD FROM TEENS Past Drug Use History: None Reported - Past Family History Mother Family Medical History: Cancer Additional Family Medical History / Comment(s): PANCREATIC Brother(s) Family Medical History: Cancer Additional Family Medical History / Comment(s): PROSTATE Medications and Allergies Home Medications Medication Instructions Recorded Confirmed Type Aspirin [Adult Low Dose Aspirin EC] 81 mg PO DAILY 12/09/17 07/19/19 History Atenolol [Tenormin] 50 mg PO QAM 12/09/17 07/19/19 History Donepezil [Aricept] 10 mg PO HS 12/09/17 07/19/19 History Fluticasone Nasal [place] [Flonase 2 spr EA NOSTRIL DAILY 12/09/17 07/19/19 History Nasal [place]] Polyethylene Glycol 3350 [Miralax] 17 gm PO DAILY 12/09/17 07/19/19 History Sertraline [Zoloft] 50 mg PO QA 12/09/17 07/19/19 History Simvastatin [Zocor] 10 mg PO HS 12/09/17 07/19/19 History Triamterene/Hydrochlorothiazid 1 tab PO QA 12/09/17 07/19/19 History [Triamterene-Hctz 37.5-25 mg Tb] amLODIPine [Norvasc] 5 mg PO HS 12/09/17 07/19/19 History Vit C/E/Zn/Coppr/Lutein/Zeaxan 1 cap PO PC-SUPPER 01/27/18 07/19/19 History [Preservision Areds 2 Softgel] Levothyroxine Sodium [Synthroid] 112 mcg PO DAILY 07/19/19 07/19/19 History Allergies Allergy/AdvReac Type Severity Reaction Status Date / Time meperidine Allergy Nausea & Verified 07/19/19 17:54 Vomiting clarithromycin [From Biaxin] AdvReac "chest Verified 07/19/19 17:54 pain" Physical Exam Vitals: Vital Signs Temp Pulse Pulse Resp BP BP Pulse Ox 07/20/19 04:00 85 16 106/58 95 07/20/19 00:00 60 18 97/52 95 07/19/19 20:00 98 F 63 18 116/64 96 07/19/19 18:47 58 L 15 132/82 97 07/19/19 18:45 97 15 132/82 97 07/19/19 16:09 98.6 F 59 L 16 153/83 99 07/19/19 15:17 59 L 15 07/19/19 15:09 57 L 15 153/83 97 07/19/19 15:07 97.9 F 57 L 20 147/76 99 Intake and Output 07/19/19 07/20/19 07/20/19 22:59 06:59 14:59 Other: # Voids 1 Weight 93.894 kg 93.3 kg PHYSICAL EXAMINATION: GENERAL: 78-year-old gentleman in no acute distress at the time of my examination HEENT: Head is atraumatic, normocephalic. Pupils equal, round. Sclera anicteric. Conjunctiva are clear. Mucous membranes of the mouth are moist. Neck is supple. There is no elevated jugular venous pressure. No carotid bruit is heard. HEART EXAMINATION: Heart S1, S2 normal. No murmur or gallop heard. CHEST EXAMINATION: Lungs are clear to auscultation and precussion. No chest wall tenderness is noted on palpation or with deep breathing. ABDOMEN: Soft, nontender. Bowel sounds are heard. No organomegaly noted. EXTREMITIES: 2+ peripheral pulses with no evidence of peripheral edema and no calf tenderness noted. NEUROLOGIC patient is awake, alert and oriented 3. . Results 07/20/19 05:54 07/20/19 05:54 Cardiac Enzymes 07/19/19 07/19/19 07/19/19 Range/Units 15:30 15:30 21:20 AST 33 (17-59) U/L Troponin I <0.012 <0.012 (0.000-0.034) ng/mL 07/20/19 Range/Units 04:19 AST (17-59) U/L Troponin I <0.012 (0.000-0.034) ng/mL Coagulation 07/19/19 Range/Units 15:30 PT 10.5 (9.0-12.0) sec APTT 23.6 (22.0-30.0) sec Lipids 07/20/19 Range/Units 04:19 Triglycerides 111 (<150) mg/dL Cholesterol 159 (<200) mg/dL HDL Cholesterol 53 (40-60) mg/dL CBC 07/19/19 07/20/19 Range/Units 15:30 05:54 WBC 6.4 6.3 (3.8-10.6) k/uL RBC 4.67 3.85 L (4.30-5.90) m/uL Hgb 14.3 12.0 L (13.0-17.5) gm/dL Hct 43.0 35.7 L (39.0-53.0) % Plt Count 193 155 (150-450) k/uL Comprehensive Metabolic Panel 07/19/19 07/20/19 07/20/19 Range/Units 15:30 04:19 05:54 Sodium 140 140 140 (137-145) mmol/L Potassium 3.4 L 3.5 3.4 L (3.5-5.1) mmol/L Chloride 104 105 106 (98-107) mmol/L Carbon Dioxide 29 28 27 (22-30) mmol/L BUN 19 22 H 22 H (9-20) mg/dL Creatinine 1.17 1.16 1.09 (0.66-1.25) mg/dL Glucose 92 91 92 (74-99) mg/dL Calcium 9.8 9.1 9.2 (8.4-10.2) mg/dL AST 33 (17-59) U/L ALT 24 (4-49) U/L Alkaline Phosphatase 88 (38-126) U/L Total Protein 8.1 (6.3-8.2) g/dL Albumin 4.8 (3.5-5.0) g/dL Current Medications Generic Name Dose Route Start Last Admin Trade Name Freq PRN Reason Stop Dose Admin Acetaminophen 650 mg 07/19/19 17:56 Tylenol Tab PO Q6HR PRN Mild Pain or Fever > 100.5 Amlodipine Besylate 5 mg 07/19/19 21:00 07/19/19 20:18 Norvasc PO 5 mg HS KARAN Administration Aspirin 325 mg 07/20/19 09:00 Aspirin PO DAILY [facility] Atenolol 50 mg 07/20/19 09:00 Tenormin PO QAM KARAN Atorvastatin Calcium 10 mg 07/19/19 21:00 07/19/19 20:18 Lipitor PO 10 mg HS KARAN Administration Donepezil HCl 10 mg 07/19/19 21:00 07/19/19 20:19 Aricept PO 10 mg HS KARAN Administration Levothyroxine Sodium 112 mcg 07/20/19 06:30 07/20/19 06:45 Synthroid PO 112 mcg 0630 KARAN Administration Naloxone HCl 0.2 mg 07/19/19 17:56 Narcan IV Q2M PRN Opioid Reversal Nitroglycerin 0.4 mg 07/19/19 17:18 Nitrostat SUBLINGUAL Q5M PRN Chest Pain Nitroglycerin 1 inch 07/19/19 22:00 07/20/19 05:54 Nitro-Bid Oint TOPICAL Not Given Q6HR KARAN Sertraline HCl 50 mg 07/20/19 09:00 Zoloft PO QAM KARAN Triamterene/HCTZ 1 each 07/20/19 09:00 Maxzide-25 PO QAM KARAN Intake and Output 07/19/19 07/20/19 07/20/19 22:59 06:59 14:59 Other: # Voids 1 Weight 93.894 kg 93.3 kg 07/20/19 05:54 07/20/19 05:54 EKG Interpretations (text) EKG shows a sinus bradycardia with no acute changes. Assessment and Plan Plan: Assessment and plan #1 symptoms of lightheadedness, dizziness, and tiredness, rule out hypothyroidism. Patient has been known to run a low thyroid levels. EKG shows a sinus bradycardia with no acute changes. Patient is currently on 112 g of Synthroid daily. #2 history of thyroid cancer status post thyroidectomy #3 hypertension #4 hyperlipidemia #5 prior history of smoking Plan We will obtain an echocardiogram with Doppler study and check a TSH level. Decrease Atenolol to 25mg daily.We will continue to monitor for any significant tachycardia or bradycardia arrhythmias. Check orthostatic heart rate and blood pressure every shift. Further recommendations to follow. DNP note has been reviewed, I agree with a documented findings and plan of care. Patient was seen and examined.
[2019-07-20 08:34] VITALS: RESP 18
[2019-07-20] MEDS ORDERED: TRIAMTERENE-HCTZ 37.5-25MG 1 EACH TAB PO SCH (09:00)
[2019-07-20] MEDS ORDERED: SERTRALINE 50 MG TAB PO SCH (09:00)
[2019-07-20] MEDS ORDERED: ATENOLOL 50 MG TAB PO SCH (09:00)
[2019-07-20] MEDS ORDERED: ASPIRIN 325 MG TAB PO SCH (09:00)
[2019-07-20] MEDS ORDERED: POTASSIUM CHLORIDE ER 20 MEQ TAB.ER PO STA (11:41)
--- NOTE | 2019-07-20 11:58 | P.DS ---
Providers Date of admission: 07/19/19 17:18 Expected date of discharge: 07/20/19 Attending physician: Paulina Llamas MD Consults: 07/19/19 17:18 Consult Physician Urgent Consulting Provider: [facility] Consult Reason/Comments: Chest pain Do you want consulting provider notified?: Yes Primary care physician: [facility] Course: 78-year-old male with PMH of hypertension, hypothyroidism, thyroid cancer post thyroidectomy, dyslipidemia presents to the ED for chest pain. Patient has been experiencing chest pain that has been ongoing over the past year. He points to the left side of his chest and states that it feels like muscular soreness. Pain occurs twice a week and usually lasts for 1 hour at a time. Patient denies any relation of the pain to exertion. Pain is not aggravated with deep inspiration. Of note, patient has been undergoing physical therapy over the past month. Patient states the pain can occur at any time. Pain is nonr adiating. There are no alleviating or aggravating factors. The severity of his pain is 2 out of 10. Of note, patient does report lightheadedness and generalized weakness that has been ongoing for the past few months. Patient states that his lightheadedness was due to under titration of his levothyroxine. His PCP has been titrating his levothyroxine and patient has experienced an improvement in symptoms. Patient denies any headache, lower extremity edema, nausea or vomiting, fever or chills, cough, shortness of breath, palpitations, changes in urination or bowel habits. No changes in appetite or weight. Patient denies any numbness/weakness/tingling of the extremities. He does report a history of smoking but quit 40-50 years ago. He does report socially drinking alcohol. In the ED, vital signs were stable. CBC was unremarkable. Coagulation panel was negative. CMP showed potassium of 3.4. Troponin was also 0.012 with EKG showing sinus bradycardia. Chest x-ray was negative. Patient is admitted for chest pain, rule out acute coronary syndrome, cardiology on consult. His chest pain was thought to be secondary to musculoskeletal in nature. Troponin was less than 0.0123 with EKG showing sinus bradycardia. Acute coronary syndrome was ruled out. He was continued on aspirin, beta lukasz and Lipitor. Echocardiogram was ordered and pending at the time of this report. Patient a potassium of 3.4 on admission. This was replaced via oral. Repeat potassium was 3.5. Patient had some vague complaints of lightheadedness. He was noted to be sinus bradycardia during his hospitalization. Cardiology was consulted and his beta lukasz was decreased. Orthostatic vitals were negative. Patient was seen and examined. No acute events overnight. Patient reports complete resolution of his symptoms. He denies any chest pain, shortness of breath or palpitations. No dizziness. No nausea or vomiting. No fever or chills. General: [non toxic], [no distress], [appears at stated age] Derm: [warm], [dry] Head: [atraumatic], [normocephalic], [symmetric] Eyes: [EOMI], [no lid lag], [anicteric sclera] Mouth: [no lip lesion], [mucus membranes moist] Cardiovascular: [S1S2 reg], [bradycardia], [positive DP pulse bilateral], Lungs: [CTA bilateral], [no rhonchi, no rales] , [no accessory muscle use] Abdominal: [soft], [ nontender to palpation], [no guarding], [no appreciable organomegaly] Ext: [no gross muscle atrophy], [no edema], [no contractures] Neuro: [ CN II-XI grossly intact], [no focal neuro deficits] Psych: [Alert], [oriented], [appropriate affect] Assessment and Plan Chest pain Lightheadedness with bradycardia Hypokalemia Hypertension Hypothyroidism Dyslipidemia Troponin less than 0.012 3 with EKG showing sinus bradycardia. It appears to be musculoskeletal via history. Plans: ACS ruled out. Continue aspirin and Lipitor. Continue beta lukasz. Telemetry monitoring. Follow echocardiogram. Follow-up cardiology consultation. Orthostats negative. EKG showing sinus bradycardia. TSH 12.9. Plans: Echocardiogram pending. TSH shows uncontrolled hypothyroidism but levothyroxine is currently being titrated in the outpatient setting. Beta lukasz decreased by cardiology. Potassium 3.4. Plans: Replace orally. Repeat BMP in 3 days. BP 128/71. Plans: Continue amlodipine, atenolol, hydrochlorothiazide with triamterene. Monitor vitals, adjust medications as necessary. Plans: Resume Synthroid. Plans: Resume Lipitor. [Chest pain resolved, ACS ruled out, echocardiogram pending. Found to have bradycardia, atenolol decreased by cardiology. Plans on DC home today if echocardiogram within normal limits. Repeat BMP in 3 days. Follow-up PCP in 3 days.] Pertinent Studies: Chest x-ray, echocardiogram Patient Condition at Discharge: Stable Plan - Discharge Summary Discharge Rx Participant: No New Discharge Prescriptions: New Atenolol [Tenormin] 25 mg PO QAM #30 tab Continue Simvastatin [Zocor] 10 mg PO HS Sertraline [Zoloft] 50 mg PO QAM Polyethylene Glycol 3350 [Miralax] 17 gm PO DAILY amLODIPine [Norvasc] 5 mg PO HS Fluticasone Nasal [place] [Flonase Nasal [place]] 2 spr EA NOSTRIL DAILY Donepezil [Aricept] 10 mg PO HS Triamterene/Hydrochlorothiazid [Triamterene-Hctz 37.5-25 mg Tb] 1 tab PO QAM Aspirin [Adult Low Dose Aspirin EC] 81 mg PO DAILY Vit C/E/Zn/Coppr/Lutein/Zeaxan [Preservision Areds 2 Softgel] 1 cap PO PC- SUPPER Levothyroxine Sodium [Synthroid] 112 mcg PO DAILY Discontinued Atenolol [Tenormin] 50 mg PO QAM Discharge Medication List Aspirin [Adult Low Dose Aspirin EC] 81 mg PO DAILY 12/09/17 [History] Donepezil [Aricept] 10 mg PO HS 12/09/17 [History] Fluticasone Nasal [place] [Flonase Nasal [place]] 2 spr EA NOSTRIL DAILY 12/09/17 [History] Polyethylene Glycol 3350 [Miralax] 17 gm PO DAILY 12/09/17 [History] Sertraline [Zoloft] 50 mg PO QAM 12/09/17 [History] Simvastatin [Zocor] 10 mg PO HS 12/09/17 [History] Triamterene/Hydrochlorothiazid [Triamterene-Hctz 37.5-25 mg Tb] 1 tab PO QAM 12/09/17 [History] amLODIPine [Norvasc] 5 mg PO HS 12/09/17 [History] Vit C/E/Zn/Coppr/Lutein/Zeaxan [Preservision Areds 2 Softgel] 1 cap PO PC-SUPPER 01/27/18 [History] Levothyroxine Sodium [Synthroid] 112 mcg PO DAILY 12/12/19 [History] Atenolol [Tenormin] 25 mg PO QAM #30 tab 07/20/19 [Rx] Follow up Appointment(s)/Referral(s): Octavio Grace MD [STAFF PHYSICIAN] - 2 Weeks [place] [Primary Care Provider] - 1-2 days (Office closed on Fridays - please call and schedule a follow up appointment with your primary physician for hospital follow up.) Patient Instructions/Handouts: Chest Pain (DC), Heart Healthy Diet (DC) Activity/Diet/Wound Care/Special Instructions: Diet: Heart healthy Follow-up PCP within 3 days. Follow-up cardiology within 1 week. Repeat BMP in 3 days. Follow-up results of BMP with PCP. Take all medications as advised. Come back to the ED or call 911 for chest pain, shortness of breath, palpitations or dizziness. Discharge Disposition: HOME SELF-CARE
[2019-07-20 12:20] VITALS: BP 144/65; PULSE 59; TEMP 97.9
--- NOTE | 2019-07-20 13:13 | ECHOF ---
Referral Reason:Chest pain MEASUREMENTS -------- HEIGHT: 182.9 cm WEIGHT: 93.0 kg BP: 106/58 IVSd: 1.2 cm (0.6 - 1.1) LVIDd: 5.0 cm (3.9 - 5.3) LVPWd: 1.2 cm (0.6 - 1.1) IVSs: 2.1 cm LVIDs: 2.1 cm LVPWs: 2.2 cm LAESV Index (A-L): 21.18 ml/m Ao Diam: 3.1 cm (2.0 - 3.7) AV Cusp: 1.3 cm (1.5 - 2.6) LA Diam: 2.6 cm (2.7 - 3.8) MV E Rahul: 0.84 m/s MV DecT: 281 ms MV A Rahul: 0.77 m/s MV E/A Ratio: 1.10 RAP: 5.00 mmHg RVSP: 7.46 mmHg TAPSE: 28.11 mm FINDINGS -------- Sinus rhythm. This was a technically good study. The left ventricular size is normal. There is mild concentric left ventricular hypertrophy. Overa ll left ventricular systolic function is low-normal with, an EF between 50 - 55 %. The diastolic fi lling pattern is normal for the age of the patient 14.14. The right ventricle is normal in size. The right ventricular systolic function is normal. The left atrial size is normal. Normal LA size by volume 22+/-6 ml/m2. The right atrial size is normal. The aortic valve is trileaflet and appears structurally normal. The mitral valve is normal. The mitral valve leaflets are mildly thickened. Mild mitral annular c alcification present. Mild mitral regurgitation is present. The tricuspid valve appears structurally normal. Mild tricuspid regurgitation present. Right vent ricular systolic pressure is normal at < 35 mmHg. There is no pulmonic regurgitation present. The aortic root size is normal. Normal inferior vena cava with normal inspiratory collapse consistent with estimated right atrial pre ssure of 5 mmHg. There is no pericardial effusion. CONCLUSIONS -------- 1. Sinus rhythm. 2. This was a technically good study. 3. The left ventricular size is normal. 4. There is mild concentric left ventricular hypertrophy. 5. Overall left ventricular systolic function is low-normal with, an EF between 50 - 55 %. 6. The diastolic filling pattern is normal for the age of the patient 14.14 7. The right ventricle is normal in size. 8. The right ventricular systolic function is normal. 9. The left atrial size is normal. 10. Normal LA size by volume 22+/-6 ml/m2. 11. The right atrial size is normal. 12. The aortic valve is trileaflet and appears structurally normal. 13. The mitral valve is normal. 14. The mitral valve leaflets are mildly thickened. 15. Mild mitral annular calcification present. 16. Mild mitral regurgitation is present. 17. The tricuspid valve appears structurally normal. 18. Mild tricuspid regurgitation present. 19. Right ventricular systolic pressure is normal at < 35 mmHg. 20. There is no pulmonic regurgitation present. 21. The aortic root size is normal. 22. Normal inferior vena cava with normal inspiratory collapse consistent with estimated right atrial pressure of 5 mmHg. 23. There is no pericardial effusion. INTERNET MARKETING MANAGER: Shanda Phillips RDCS
[2019-07-21] MEDS ORDERED: ASPIRIN 81 MG PO SCH (09:00)
[2019-07-21] MEDS ORDERED: ATENOLOL 25 MG TAB PO SCH (09:00)
== END 2019-07-20 15:00 | disposition home or self-care (01) ==
LOC: EC 15:04 → 3SCARD 17:18
PROVIDERS: ADMIT Family Medicine; ATTEND Family Medicine
DX: R07.9 Chest pain, unspecified (principal); R42 Dizziness and giddiness; R00.1 Bradycardia, unspecified; E87.6 Hypokalemia; I10 Essential (primary) hypertension; E89.0 Postprocedural hypothyroidism; E78.5 Hyperlipidemia, unspecified; I08.1 Rheumatic disorders of both mitral and tricuspid valves; E78.00 Pure hypercholesterolemia, unspecified; G47.30 Sleep apnea, unspecified; N40.0 Benign prostatic hyperplasia without lower urinary tract symptoms; F41.9 Anxiety disorder, unspecified; Z79.82 Long term (current) use of aspirin; Z79.899 Other long term (current) drug therapy; Z79.890 Hormone replacement therapy; Z88.5 Allergy status to narcotic agent; Z88.1 Allergy status to other antibiotic agents; Z85.850 Personal history of malignant neoplasm of thyroid; Z86.73 Personal history of transient ischemic attack (TIA), and cerebral infarction without residual deficits; Z86.010 Personal history of colon polyps; Z87.19 Personal history of other diseases of the digestive system; Z87.438 Personal history of other diseases of male genital organs; Z90.49 Acquired absence of other specified parts of digestive tract; Z90.79 Acquired absence of other genital organ(s); Z98.890 Other specified postprocedural states; Z87.39 Personal history of other diseases of the musculoskeletal system and connective tissue; Z98.42 Cataract extraction status, left eye; Z98.41 Cataract extraction status, right eye; Z87.891 Personal history of nicotine dependence; Z80.0 Family history of malignant neoplasm of digestive organs; Z80.42 Family history of malignant neoplasm of prostate
CPT/HCPCS: 93005 ×2; 99285; 36415; 93306; 80061; 80053; 80048; 83735; 84443; 84484 ×2; 85025; 85027; 85610; 85730; 71046; G0378 ×2

== ENCOUNTER → 2019-12-24 | Outpatient (CLI) | payer MEDICARE ==
[2019-12-24 11:35] LABS: HGB 14.1 gm/dL (13.0-17.5); MCH 30.1 pg (25.0-35.0); MCHC 32.7 g/dL (31.0-37.0); MCV 92.1 fL (80.0-100.0); Mean Platelet Volume 7.4; Platelet Count 207 k/uL (150-450); RBC 4.67 m/uL (4.30-5.90); RDW 13.2 % (11.5-15.5); WBC 6.8 k/uL (3.8-10.6)
[2019-12-24 11:48] LABS: Potassium 3.5 mmol/L (3.5-5.1)
== END | disposition home or self-care (01) ==
LOC: LABWHC1 10:43
PROVIDERS: ATTEND Internal Medicine Interventional Cardiology
DX: Z01.818 Encounter for other preprocedural examination (principal); R94.39 Abnormal result of other cardiovascular function study
CPT/HCPCS: 36415; 80051; 82565; 84520; 85027; 87635

== ENCOUNTER 2019-12-26 09:28 | Day surgery (SDC) | payer MEDICARE ==
[2019-12-24 13:01] VITALS: BMI 29.2
[~2019-12-26 09:28] MED LIST changes: +ALPRAZolam 0.25 MG TAB PO PRN; +ALPRAZolam 0.5 MG TAB PO PRN; +ASPIRIN 325 MG TAB PO STA; +ATORVASTATIN 80 MG TAB PO STA; -DEXAMETHASONE SOD PHOSPHATE 10 MG/ML 1 ML VIAL IV ONE; -DEXAMETHASONE SOD PHOSPHATE 4 MG/ML 1 ML VIAL IV ONE; -FAMOTIDINE 20 MG/2 ML VIAL IV ONE; -LACTATED RINGERS 1,000 ML IV SCH; -MELOXICAM 7.5 MG TAB PO ONE; -MIDAZOLAM 2 MG/2 ML VIAL IV PRN; +NITROGLYCERIN SL TABS 0.4 MG TAB SUBLINGUAL PRN; -ONDANSETRON 4 MG/2 ML VIAL IVP ONE; +SODIUM CHLORIDE 0.9% 1,000 ML in EMPTY BAG 1 BAG IV ONE; -ceFAZolin 1,000 MG in DEXTROSE/WATER 1 50ML.BAG IV ONE; -fentaNYL (PF) 50 MCG/ML 2 ML AMP IV PRN
[2019-12-26 10:05] VITALS: TEMP 97.8
[2019-12-26] MEDS ORDERED: MIDAZOLAM 2 MG/2 ML VIAL IVP ONE ×2 (10:43→10:50)
[2019-12-26] MEDS ORDERED: LIDOCAINE 1% INJ 10MG/ML (20 ML MDV) SQ ONE (10:50)
[2019-12-26] MEDS ORDERED: VERAPAMIL SYRINGE (5 MG/10 ML) INTRAARTER ONE (10:51)
[2019-12-26] MEDS ORDERED: HEPARIN SODIUM 1,000 UN/ML (10ML VL) IV ONE (10:54)
[2019-12-26] MEDS ORDERED: IOPAMIDOL-370 100ML BTL INJ ONE (11:06)
[2019-12-26] MEDS ORDERED: SODIUM CHLORIDE 0.9% 1,000 ML IV SCH (11:30)
--- NOTE | 2019-12-26 12:31 | CC ---
CARDIAC CATHETERIZATION REPORT DATE OF SERVICE: 12/26/2019 PROCEDURE: Left heart catheterization and coronary angiography. PERFORMED BY: Dr. Chinmay Roche. Moderate conscious sedation time was 17 minutes. Patient was administered Versed. Oxygen saturation, hemodynamics and EKG were monitored closely. CLINICAL INFORMATION: Mr. Davison is an 79-year-old gentleman with history of hypertension, hyperlipidemia, who has been having symptoms of chest tightness and pressure and had a positive stress test with inferolateral reversible defect and therefore was advised cardiac cath after due discussion regarding risks, benefits, and options. PROCEDURE NOTE: Under local anesthesia and strict aseptic precautions, a 6-English introducer was placed in the right radial artery. Using a JL3.5 and JR4 catheters, I performed coronary angiography and the same right Jasmyne catheter was used to check LV pressures. LV gram was not performed. The sheath was taken out and TR band applied as per protocol and his oxygen saturation was more than 90. His oxygen saturation, in the right hand was 93%. CARDIAC CATHETERIZATION FINDINGS: The left ventricular end-diastolic pressure was about 12 mmHg without any gradient across aortic valve. CORONARY ANGIOGRAPHY FINDINGS: RIGHT CORONARY ARTERY: A large dominant vessel, has no significant disease minor irregularities gives off acute marginal branches. Distally gives off a small PDA larger PLV, both of which have minor irregularities but no significant disease is noted. LEFT MAIN CORONARY ARTERY: Short patent vessel, free of significant disease. Bifurcates into LAD and circumflex. LEFT ANTERIOR DESCENDING CORONARY ARTERY: Good caliber vessel, extends along the anterior wall, gives off septal and diagonal branches, runs all the way to the apex and curves over the apex to supply the inferoapical portion of left ventricle. No significant disease in the LAD system. LEFT POSTERIOR CIRCUMFLEX CORONARY ARTERY: A nondominant vessel, gives off a good- sized obtuse marginal that runs laterally, divides into 2 branches distally, has minor irregularities, no significant disease. Continuation of circumflex in the AV groove is a somewhat small and diffusely diseased. Left ventriculogram was not performed. FINAL IMPRESSION: This patient has a right dominant system, normal filling pressures. No significant CAD. Minor irregularities were noted. Diffuse disease in the [place] circumflex was noted after the obtuse marginal, but this is a small vessel. No gradient across the aortic valve. RECOMMENDATIONS: Findings were discussed with the patient and family. I am recommending continued medical therapy with risk factor modification. No intervention necessary and I will be seeing the patient in the office in the next 48 hours. MMODL / IJN: [id number] /
[2019-12-26 12:56] VITALS: BP 131/95; PULSE 64; RESP 16
== END 2019-12-26 17:00 | disposition home or self-care (01) ==
LOC: CATHCVL 09:28
PROVIDERS: ATTEND Internal Medicine Interventional Cardiology
DX: I20.0 Unstable angina (principal); R94.39 Abnormal result of other cardiovascular function study; I10 Essential (primary) hypertension; Z72.0 Tobacco use; E78.2 Mixed hyperlipidemia; Z85.850 Personal history of malignant neoplasm of thyroid; E03.8 Other specified hypothyroidism; E78.00 Pure hypercholesterolemia, unspecified; Z79.82 Long term (current) use of aspirin; Z79.890 Hormone replacement therapy; Z79.899 Other long term (current) drug therapy; Z88.1 Allergy status to other antibiotic agents; Z88.5 Allergy status to narcotic agent
CPT/HCPCS: 93458; C1769 ×2; C1894; J2250; J2001; J1644; Q9967

== ENCOUNTER → 2020-07-16 | Outpatient (CLI) | payer MEDICARE ==
--- NOTE | 2020-07-16 13:49 | XR ---
EXAMINATION TYPE: XR Hip Complete RT DATE OF EXAM: 07/16/2020 COMPARISON: NONE HISTORY: Pain TECHNIQUE: 2 views submitted FINDINGS: There is no evidence of erosive change or acute fracture. Arthropathy of the hip with hypertrophic ch antoni of the acetabulum. IMPRESSION: 1. No evidence of acute fracture or dislocation. 2. Arthropathy correlate for femoral acetabular impingement.
--- NOTE | 2020-07-16 13:50 | XR ---
EXAM TYPE: LUMBAR SPINE X RAY SERIES COMPARISON: NONE HISTORY: Pain TECHNIQUE: Three views are submitted. FINDINGS: Alignment is anatomic. The pedicles are intact. The transverse processes are intact. There is mult ilevel severe degenerative disc disease and hypertrophic spurring. No compression deformities. Altere d level facet arthropathy and foraminal encroachment suspected. Vascular calcifications noted. IMPRESSION: 1. Multilevel severe degenerative disc disease and facet arthropathy. Suspect canal stenosis and fora abhilash encroachment lower lumbar spine recommend MRI.
== END | disposition home or self-care (01) ==
LOC: RADXRMAIN 13:13
PROVIDERS: ATTEND Family Medicine
DX: M12.851 Other specific arthropathies, not elsewhere classified, right hip (principal); M51.36 Other intervertebral disc degeneration, lumbar region; M47.816 Spondylosis without myelopathy or radiculopathy, lumbar region
CPT/HCPCS: 72100; 73502

== ENCOUNTER → 2021-06-24 | Outpatient (CLI) | payer MEDICARE ==
--- NOTE | 2021-06-24 14:22 | CT ---
EXAMINATION TYPE: CT brain wo con DATE OF EXAM: 06/24/2021 HISTORY: passing out frequently CT DLP: 995.5 mGycm. Automated Exposure Control for Dose Reduction was Utilized. TECHNIQUE: CT scan of the head is performed without contrast. COMPARISON: MRI of the brain May 10, 2018. FINDINGS: There is no acute intracranial hemorrhage or midline shift identified. There is mild vent ricular and sulcal prominence. There is mild low-attenuation in the periventricular white matter con sistent with chronic small vessel ischemic change. Mild mucosal thickening involving the ethmoid sinu ses bilaterally is redemonstrated. Stable 2.0 x 1.0 cm asymmetric right anterior soft tissue nasal [place] axial image 1 could reflect polyp. Scleral calcification bilateral globes is present. Patchy cer umen in the deep external auditory canals bilaterally is present. IMPRESSION: No acute intracranial hemorrhage or midline shift. There is mild diffuse age-related ce rebral atrophy and chronic small vessel ischemic change redemonstrated. 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 No significant change from 2018 MRI
--- NOTE | 2021-06-24 15:49 | US ---
EXAMINATION TYPE: US carotid duplex BILAT DATE OF EXAM: 06/24/2021 COMPARISON: NONE CLINICAL HISTORY: R42 dizziness. Patient stated had 2 syncopal episodes; prior smoker 50 years ago. EXAM MEASUREMENTS: RIGHT: Peak Systolic Velocity (PSV) cm/sec ----- Right CCA: 62.7 ----- Right ICA: 67.7 ----- Right ECA: 119.0 ICA/CCA ratio: 1.1 RIGHT: End Diastole cm/sec ----- Right CCA: 18.4 ----- Right ICA: 18.9 ----- Right ECA: 20.4 LEFT: Peak Systolic Velocity (PSV) cm/sec ----- Left CCA: 67.8 ----- Left ICA: 87.7 ----- Left ECA: 117.4 ICA/CCA ratio: 1.3 LEFT: End Diastole cm/sec ----- Left CCA: 16.1 ----- Left ICA: 33.7 ----- Left ECA: 18.8 VERTEBRALS (direction of flow): Right Vertebral: Antegrade Left Vertebral: Antegrade Rhythm: Normal Moderate, irregular mixed plaque is noted at bilateral carotid bifurcation, but PSV is wnl bilaterall y. Grayscale, color Doppler, spectral Doppler imaging performed of the carotid arteries. Waveform analys is does not show significant stenosis of the internal carotid arteries. IMPRESSION: No hemodynamic significant stenosis of the proximal internal carotid arteries by Doppler criteria, indirect measurement of carotid stenosis Criteria for Assigning % of Stenosis / Diameter reduction (Estimation based on the indirect measurements of the internal carotid artery velocities (ICA PSV). 1. Normal (no stenosis)=ICA PSV < 125 cm/s: ratio < 2.0: ICA EDV<40 cm/s. 2. Less than 50% stenosis=ICA PSV < 125 cm/s: ratio < 2.0: ICA EDV<40 cm/s. 3. 50 to 69% stenosis=ICA PSV of 125 to 230 cm/s: ration 2.0 ? 4.0: ICA EDV 40-100 cm/s. 4. Greater than 70% stenosis to near occlusion= ICA PSV > 230 cm/s: ratio > 4.0: ICA EDV > 100 cm/s. 5. Near occlusion= ICA PSV velocities may be low or undetectable: variable ratio and ICA EDV. 6. Total occlusion=unable to detect flow.
--- NOTE | 2021-06-24 16:45 | XR ---
Lumbar spine HISTORY: W19.XXXA Fall. 3 views of the lumbar spine, correlation prior exam 07/16/2020 There is a slight spinal curvature. Multilevel spondylosis is again noted. Lumbar vertebral bodies sh ow stable height, alignment, bone mineralization. Loss of disc height is greatest at L5-S1, L3-4 and present to lesser extent L2-3. Sclerosis is present in the posterior elements of the lower lumbar spi ne. IMPRESSION: Degenerative disc disease and facet arthropathy, slight spinal curvature.
== END | disposition home or self-care (01) ==
LOC: RADCTMAIN 13:38
PROVIDERS: ATTEND Family Medicine
DX: R42 Dizziness and giddiness (principal); M47.896 Other spondylosis, lumbar region; W19.XXXA Unspecified fall, initial encounter
CPT/HCPCS: 70450; 72100; 93880

== ENCOUNTER → 2021-08-31 | Outpatient (CLI) | payer MEDICARE | END | disposition home or self-care (01) | LOC: LABPAT 11:45 | PROVIDERS: ATTEND Surgery Plastic and Reconstructive Surgery | DX: Z03.818 Encounter for observation for suspected exposure to other biological agents ruled out (principal); Z20.822 Contact with and (suspected) exposure to COVID-19 | CPT/HCPCS: U0003; C9803; U0005 ==

== ENCOUNTER 2021-09-02 08:40 | Day surgery (SDC) | payer MEDICARE ==
[2021-08-27 15:21] VITALS: BMI 29.4
--- NOTE | 2021-09-02 08:12 | P.GSHP ---
History of Present Illness H&P Date: 09/02/21 CHIEF COMPLAINT: Colon screen HISTORY OF PRESENT ILLNESS: The patient is a 81-year-old male who presents for colon screen. Lower endoscopy was offered for further evaluation and management. PAST MEDICAL HISTORY: Please see list. PAST SURGICAL HISTORY: Please see list. MEDICATIONS: Please see list. ALLERGIES: Please see list. SOCIAL HISTORY: No illicit drug use FAMILY HISTORY: No reports of Crohn disease or ulcerative colitis. REVIEW OF ORGAN SYSTEMS: CONSTITUTIONAL: No reports of fevers or chills. PHYSICAL EXAM: VITAL SIGNS: Stable GENERAL: Well-developed pleasant in no acute distress. HEENT: No scleral icterus. Extraocular movements grossly intact. Moist buccal mucosa. NECK: Supple without lymphadenopathy. CHEST: Unlabored respirations. Equal bilateral excursions. CARDIOVASCULAR: Regular rate and rhythm. Distal 2+ pulses. ABDOMEN: Soft, nontender, nondistended. MUSCULOSKELETAL: No clubbing, cyanosis, or edema. ASSESSMENT: 1. Colon screen. PLAN: 1. Recommend proceeding with a lower endoscopy Past Medical History Past Medical History: Cancer, CVA/TIA, Hearing Disorder / Deafness, Hyperlipidemia, Hypertension, Memory Impairment, Prostate Disorder, Sleep Apnea/CPAP/BIPAP, Syncope Additional Past Medical History / Comment(s): HX OF COLON POLYPS, HX OF DIVERTICULITUS, TIA UNKNOWN WHEN, HX OF THYROID AND SKIN CANCER, HX OF BPH. Has heart monitor implant. Bilateral hearing aids. History of Any Multi-Drug Resistant Organisms: None Reported Past Surgical History: Bowel Resection, Prostate Surgery Additional Past Surgical History / Comment(s): THYROIDECTOMY, PARATHYROID SURGERY, TRIGGER FINGER SURGERY, NASAL POLYPS REMOVED, TURP, BILATERAL CATARACTS REMOVED, heart monitor implant. Past Anesthesia/Blood Transfusion Reactions: Motion Sickness Past Psychological History: Anxiety, Depression Additional Psychological History / Comment(s): Spouse states slight depression. Smoking Status: Former smoker Past Alcohol Use History: Occasional Additional Past Alcohol Use History / Comment(s): QUIT SMOKING 1977, SMOKED 1PPD FROM TEENS. Past Drug Use History: None Reported - Past Family History Mother Family Medical History: Cancer Additional Family Medical History / Comment(s): PANCREATIC CANCER. Brother(s) Family Medical History: Cancer Additional Family Medical History / Comment(s): PROSTATE CANCER. Medications and Allergies Home Medications Medication Instructions Recorded Confirmed Type Aspirin [Adult Low Dose Aspirin EC] 81 mg PO HS 12/09/17 08/27/21 History Donepezil [Aricept] 10 mg PO HS 12/09/17 08/27/21 History Fluticasone Nasal [place] [Flonase 1 - 2 spr EA NOSTRIL DAILY 12/09/17 08/27/21 History Nasal [place]] Triamterene/Hydrochlorothiazid 1 tab PO QAM 12/09/17 08/27/21 History [Triamterene-Hctz 37.5-25 mg Tb] amLODIPine [Norvasc] 5 mg PO HS 12/09/17 08/27/21 History Vit C/E/Zn/Coppr/Lutein/Zeaxan 2 cap PO DAILY 01/27/18 08/27/21 History [Preservision Areds 2 Softgel] atenoloL [Tenormin] 25 mg PO QAM #30 tab 07/20/19 08/27/21 Rx Atorvastatin Calcium [Lipitor] 20 mg PO HS 12/24/19 08/27/21 History Sertraline [Zoloft] 100 mg PO DAILY 12/24/19 08/27/21 History Levothyroxine Sodium 125 mcg PO DAILY 08/27/21 08/27/21 History Multivitamins, Thera [Multivitamin 1 tab PO DAILY 08/27/21 08/27/21 History (formulary)] Allergies Allergy/AdvReac Type Severity Reaction Status Date / Time meperidine Allergy Nausea & Verified 08/27/21 15:05 Vomiting clarithromycin [From Biaxin] AdvReac "chest Verified 08/27/21 15:05 pain"
[~2021-09-02 08:40] MED LIST changes: -ALPRAZolam 0.25 MG TAB PO PRN; -ALPRAZolam 0.5 MG TAB PO PRN; -ASPIRIN 325 MG TAB PO STA; -ATORVASTATIN 80 MG TAB PO STA; +LACTATED RINGERS 1,000 ML IV SCH; +LIDOCAINE 1% (10MG/ML) FOR IV START INTRADERMA PRN; -NITROGLYCERIN SL TABS 0.4 MG TAB SUBLINGUAL PRN; -SODIUM CHLORIDE 0.9% 1,000 ML in EMPTY BAG 1 BAG IV ONE
[2021-09-02 09:36] VITALS: RESP 20; TEMP 98.4
[2021-09-02] MEDS ORDERED: LIDOCAINE 1% INJ 10MG/ML (20 ML MDV) ONE (09:53)
[2021-09-02] MEDS ORDERED: PROPOFOL 10 MG/ML 20 ML VIAL IV ONE (09:53)
--- NOTE | 2021-09-02 10:26 | P.PCN ---
Date of Procedure: 09/02/21 Description of Procedure: PREOPERATIVE DIAGNOSIS: Colonoscopy screening. Personal history colon polyps POSTOPERATIVE DIAGNOSIS: Colonoscopy screening. Personal history colon polyps Diverticulosis, sigmoid colon OPERATION: Colonoscopy to the cecum, ileocecal valve and appendiceal orifice. SURGEON: Mei Lopes MD. ANESTHESIA: MAC. INDICATIONS: The patient is a 81-year-old male who presents for colonoscopy screening. Last colonoscopy 10 years ago. Benefits and risks were described and informed consent was obtained. DESCRIPTION OF PROCEDURE: The patient had undergone Sutab prep. The patient had been brought into the operating room and laid in the left lateral decubitus position. After adequate intravenous sedation, the rectum was examined with 2% lidocaine jelly. No external hemorrhoids were encountered. The rectal tone was within normal limits. No lesions were palpated in the rectal vault. An Olympus colonoscope was advanced until the cecum, ileocecal valve and appendiceal orifice were clearly viewed. The prep was fair. Scattered diverticulosis was encountered. No colonic polyps were found. No evidence of focal colitis was found. Retroflexion of the scope demonstrated grade 1 internal hemorrhoids without active bleeding or inflammation. The colon was desufflated. The patient had tolerated the procedure well. Withdrawal time was over 6 minutes. FINDINGS: Aronchick preparation quality scale 3 (1-5) Internal hemorrhoids, grade 1 No external prolapsed hemorrhoids. No arteriovenous malformations. No adenomatous polyps. No focal colitis. Prostatic fossa unremarkable RECOMMENDATIONS: Lower endoscopy 5 years, 2026 Plan - Discharge Summary Discharge Rx Participant: No New Discharge Prescriptions: Continue amLODIPine [Norvasc] 5 mg PO HS Fluticasone Nasal [place] [Flonase Nasal [place]] 1 - 2 spr EA NOSTRIL DAILY Donepezil [Aricept] 10 mg PO HS Triamterene/Hydrochlorothiazid [Triamterene-Hctz 37.5-25 mg Tb] 1 tab PO QAM Aspirin [Adult Low Dose Aspirin EC] 81 mg PO HS Vit C/E/Zn/Coppr/Lutein/Zeaxan [Preservision Areds 2 Softgel] 2 cap PO DAILY atenoloL [Tenormin] 25 mg PO QAM #30 tab Atorvastatin Calcium [Lipitor] 20 mg PO HS Sertraline [Zoloft] 100 mg PO DAILY Multivitamins, Thera [Multivitamin (formulary)] 1 tab PO DAILY Levothyroxine Sodium 125 mcg PO DAILY Discharge Medication List Aspirin [Adult Low Dose Aspirin EC] 81 mg PO HS 12/09/17 [History] Donepezil [Aricept] 10 mg PO HS 12/09/17 [History] Fluticasone Nasal [place] [Flonase Nasal [place]] 1 - 2 spr EA NOSTRIL DAILY 12/09/17 [History] Triamterene/Hydrochlorothiazid [Triamterene-Hctz 37.5-25 mg Tb] 1 tab PO QAM 12/09/17 [History] amLODIPine [Norvasc] 5 mg PO HS 12/09/17 [History] Vit C/E/Zn/Coppr/Lutein/Zeaxan [Preservision Areds 2 Softgel] 2 cap PO DAILY 01/27/18 [History] atenoloL [Tenormin] 25 mg PO QAM #30 tab 07/20/19 [Rx] Atorvastatin Calcium [Lipitor] 20 mg PO HS 12/24/19 [History] Sertraline [Zoloft] 100 mg PO DAILY 12/24/19 [History] Levothyroxine Sodium 125 mcg PO DAILY 08/27/21 [History] Multivitamins, Thera [Multivitamin (formulary)] 1 tab PO DAILY 08/27/21 [History] Follow up Appointment(s)/Referral(s): Mei Lopes MD [STAFF PHYSICIAN] - As Needed Patient Instructions/Handouts: Diverticulosis Diet (GEN), Diverticulosis (ED) Activity/Diet/Wound Care/Special Instructions: Repeat colonoscopy 5 years2026 Discharge Disposition: HOME SELF-CARE
[2021-09-02 10:33] VITALS: BP 114/62; PULSE 57
== END 2021-09-02 11:01 | disposition home or self-care (01) ==
LOC: ORWHC2ENDO 08:40
PROVIDERS: ATTEND Surgery Plastic and Reconstructive Surgery
DX: Z12.11 Encounter for screening for malignant neoplasm of colon (principal); Z86.010 Personal history of colon polyps; K57.30 Diverticulosis of large intestine without perforation or abscess without bleeding; K64.0 First degree hemorrhoids; Z86.73 Personal history of transient ischemic attack (TIA), and cerebral infarction without residual deficits; H91.90 Unspecified hearing loss, unspecified ear; E78.5 Hyperlipidemia, unspecified; I10 Essential (primary) hypertension; R41.3 Other amnesia; Z85.46 Personal history of malignant neoplasm of prostate; Z85.828 Personal history of other malignant neoplasm of skin; G47.33 Obstructive sleep apnea (adult) (pediatric); Z90.49 Acquired absence of other specified parts of digestive tract; Z98.42 Cataract extraction status, left eye; Z98.41 Cataract extraction status, right eye; Z98.890 Other specified postprocedural states; Z97.2 Presence of dental prosthetic device (complete) (partial); F41.9 Anxiety disorder, unspecified; F32.A Depression, unspecified; Z95.0 Presence of cardiac pacemaker; Z87.891 Personal history of nicotine dependence; Z85.850 Personal history of malignant neoplasm of thyroid; Z80.42 Family history of malignant neoplasm of prostate; Z80.0 Family history of malignant neoplasm of digestive organs; Z79.82 Long term (current) use of aspirin; Z79.890 Hormone replacement therapy; Z79.899 Other long term (current) drug therapy; Z88.1 Allergy status to other antibiotic agents; Z88.5 Allergy status to narcotic agent
CPT/HCPCS: J2001; J2704; G0105; 45378

== ENCOUNTER → 2022-01-15 | Outpatient (CLI) | payer MEDICARE ==
--- NOTE | 2022-01-16 02:52 | MR ---
EXAMINATION TYPE: MR brain wo/w con DATE OF EXAM: 01/15/2022 COMPARISON: 05/10/2018 HISTORY: Memory loss, mild cognitive impairment. CONTRAST: Standard multiplanar, multisequence MRI departmental protocol images were obtained without contrast a nd with 9 mL intravenous Gadavist gadolinium contrast. Multiplanar multi echo imaging of the brain without and with IV contrast. There is mild cerebral cortical atrophy. There is no mass effect or midline shift. No sign of intracr anial hemorrhage. No evidence of acute infarct. Brainstem is intact. Cerebellum is intact. There is 2 cm area of white matter increased signal in the right parietal lobe adjacent to the lateral ventricl e. The corpus callosum is intact. Sella turcica appears normal. There is no evidence of orbital mass. Th ere is some mucosal thickening right anterior nasopharynx. There is no pathologic enhancement. There is normal enhancement of the venous sinuses. IMPRESSION: Nonenhancing high signal white matter lesion in the right parietal lobe adjacent to the lateral ventr icle consistent with old lacunar infarct or demyelinating disease and not changed compared to old exa m. No evidence of cortical infarct. No acute intracranial abnormality.
== END | disposition home or self-care (01) ==
LOC: RADMRIMAIN 15:32
PROVIDERS: ATTEND Family Medicine
DX: G31.84 Mild cognitive impairment of uncertain or unknown etiology (principal)
CPT/HCPCS: 70553; A9585

== ENCOUNTER → 2022-05-31 | Outpatient (CLI) | payer MEDICARE ==
[2022-05-31 14:53] LABS: Basophils # (A) 0.05 X 10*3/uL (0.00-0.10); Basophils % (A) 0.7 %; Eosinophils # (A) 0.11 X 10*3/uL (0.04-0.35); Eosinophils % (A) 1.5 %; HCT 39.1 % (39.6-50.0); HGB 13.1 g/dL (13.0-17.0); Immature Grans, Automated 0.4 %; Lymphocytes # (A) 1.42 X 10*3/uL (0.90-5.00); Lymphocytes % (A) 19.2 %; MCH 30.7 pg (27.0-32.0); MCHC 33.5 g/dL (32.0-37.0); MCV 91.6 fL (80.0-97.0); Mean Platelet Volume 10.7 fL (9.5-12.2); Monocytes # (A) 0.54 X 10*3/uL (0.20-1.00); Monocytes % (A) 7.3 %; NRBC Per 100 WBC 0 /100 WBCS (0.0-0.0); Neutrophils # (A) 5.23 X 10*3/uL (1.80-7.70); Neutrophils % (A) 70.9 %; Platelet Count 195 X 10*3/uL (140-440); RBC 4.27 X 10*6/uL (4.40-5.60); RDW 13.2 % (11.5-14.5); WBC 7.38 X 10*3/uL (4.50-10.00)
[2022-05-31 15:20] LABS: ALT 24 U/L (10-49); AST 36 U/L (14-35); African American GFR (CKD) 58.9 (60.0-200.0); Albumin 4.3 g/dL (3.8-4.9); Albumin/Globulin Ratio 1.34 (1.60-3.17); Alkaline Phosphatase 94 U/L (41-126); BUN/Creat Ratio 17.92 Ratio (12.00-20.00); Blood Urea Nitrogen 23.3 mg/dL (9.0-27.0); Calcium 9.7 mg/dL (8.7-10.3); Carbon Dioxide 28.1 mmol/L (20.0-27.5); Chloride 105 mmol/L (96-109); Chol/HDL Ratio 2.17 Ratio; Globulin 3.2 g/dL (1.6-3.3); Glucose 104 mg/dL (70-110); LDL Cholesterol,Calculated 58.2 mg/dL (0.0-131.0); Non-African American GFR(CKD) 50.8 (60.0-200.0); Potassium 3.9 mmol/L (3.5-5.5); Sodium 143 mmol/L (135-145); Total Protein 7.5 g/dL (6.2-8.2); VLDL Calculation 12.92 mg/dL (5.00-40.00)
== END | disposition home or self-care (01) ==
LOC: LABWHC1 10:14
PROVIDERS: ATTEND Internal Medicine
DX: I10 Essential (primary) hypertension (principal); E03.8 Other specified hypothyroidism
CPT/HCPCS: 36415; 80053; 80061; 84439; 84443; 85025

== ENCOUNTER → 2022-11-26 | Outpatient (CLI) | payer MEDICARE ==
[2022-11-27 02:13] LABS: Protein, Total 6.9 g/dL (6.2-8.2)
[2022-11-27 02:30] LABS: Basophils # (A) 0.07 X 10*3/uL (0.00-0.10); Basophils % (A) 0.9 %; Eosinophils # (A) 0.12 X 10*3/uL (0.04-0.35); Eosinophils % (A) 1.5 %; HCT 40.7 % (39.6-50.0); HGB 13.1 g/dL (13.0-17.0); Immature Grans, Automated 0.4 %; Lymphocytes # (A) 1.94 X 10*3/uL (0.90-5.00); Lymphocytes % (A) 24.7 %; MCH 30.4 pg (27.0-32.0); MCHC 32.2 g/dL (32.0-37.0); MCV 94.4 fL (80.0-97.0); Mean Platelet Volume 10.6 fL (9.5-12.2); Monocytes # (A) 0.73 X 10*3/uL (0.20-1.00); Monocytes % (A) 9.3 %; NRBC Per 100 WBC 0 /100 WBCS (0.0-0.0); Neutrophils # (A) 4.98 X 10*3/uL (1.80-7.70); Neutrophils % (A) 63.2 %; Platelet Count 210 X 10*3/uL (140-440); RBC 4.31 X 10*6/uL (4.40-5.60); RDW 13.2 % (11.5-14.5); WBC 7.87 X 10*3/uL (4.50-10.00)
[2022-11-27 03:15] LABS: African American GFR (CKD) 57.4 (60.0-200.0); Albumin 4.3 g/dL (3.8-4.9); Albumin/Globulin Ratio 1.59 (1.60-3.17); Anion Gap 12.3 mmol/L (10.00-18.00); BUN/Creat Ratio 13.11 Ratio (12.00-20.00); Blood Urea Nitrogen 17.3 mg/dL (9.0-27.0); Calcium 9.8 mg/dL (8.7-10.3); Carbon Dioxide 28.6 mmol/L (20.0-27.5); Globulin 2.7 g/dL (1.6-3.3); Non-African American GFR(CKD) 49.5 (60.0-200.0); Potassium 3.7 mmol/L (3.5-5.5); T4, Free (Free Thyroxine) 1.55 ng/dL (0.800-1.800); Total Bilirubin 0.6 mg/dL (0.30-1.20)
== END | disposition home or self-care (01) ==
LOC: LABWHC1 15:33
PROVIDERS: ATTEND Internal Medicine
DX: G62.9 Polyneuropathy, unspecified (principal); Z91.09 Other allergy status, other than to drugs and biological substances; M79.671 Pain in right foot
CPT/HCPCS: 36415; 80053; 82607; 82728; 83036; 84165; 84439; 84443; 84550; 85025

== ENCOUNTER 2022-12-20 21:31 | Observation (INO) | payer MEDICARE ==
--- NOTE | 2022-12-20 22:10 | ED ---
General Adult HPI - General Source: patient, family Mode of arrival: wheelchair <Em Lewis - Last Filed: 12/20/22 22:09> <Jagdish Viramontes - Last Filed: 12/21/22 01:52> - General Stated complaint: VOMITING Time Seen by Provider: 12/20/22 22:10 - History of Present Illness Initial comments: Patient is an 82-year-old male presenting with chief complaint of nausea and vomiting. Occurs after dinner and has been ongoing for the last 3 nights. (Em Lewis) This is a 82-year-old male with a past medical history including hypertension presents emergency department for multiple episodes of nausea and vomiting. The patient stated over the last 3 nights after dinner he has a large volume of vomit and stated that it occurred once again tonight. The patient stated that because of the continued episodes, he was advised by his and son to go to the emergency department for evaluation. The patient does have a past medical history including increased memory loss and his was present at the bedside to confirm the history. On arrival, the patient denied any acute pain or distress and denied any active nausea or vomiting. The patient did state that he had some minor pressure in the epigastric region. The patient denied any other acute pain or complaints at this time. (Jagdish Viramontes) - Related Data Home Medications Medication Instructions Recorded Confirmed Aspirin [Adult Low Dose Aspirin EC] 81 mg PO HS 12/09/17 08/27/21 Donepezil [Aricept] 10 mg PO HS 12/09/17 08/27/21 Fluticasone Nasal [place] [Flonase 1 - 2 spr EA NOSTRIL DAILY 12/09/17 08/27/21 Nasal [place]] Triamterene/Hydrochlorothiazid 1 tab PO QAM 12/09/17 08/27/21 [Triamterene-Hctz 37.5-25 mg Tb] amLODIPine [Norvasc] 5 mg PO HS 12/09/17 08/27/21 Vit C/E/Zn/Coppr/Lutein/Zeaxan 2 cap PO DAILY 01/27/18 08/27/21 [Preservision Areds 2 Softgel] Atorvastatin Calcium [Lipitor] 20 mg PO HS 12/24/19 08/27/21 Sertraline [Zoloft] 100 mg PO DAILY 12/24/19 08/27/21 Levothyroxine Sodium 125 mcg PO DAILY 08/27/21 08/27/21 Multivitamins, Thera [Multivitamin 1 tab PO DAILY 08/27/21 08/27/21 (formulary)] Previous Rx's Medication Instructions Recorded atenoloL [Tenormin] 25 mg PO QAM #30 tab 07/20/19 Allergies Allergy/AdvReac Type Severity Reaction Status Date / Time meperidine Allergy Nausea & Verified 12/20/22 22:10 Vomiting clarithromycin [From Biaxin] AdvReac "chest Verified 12/20/22 22:10 pain" Review of Systems ROS Other: All systems not noted in ROS Statement are negative. <Em Lewis - Last Filed: 12/20/22 22:09> ROS Other: All systems not noted in ROS Statement are negative. <Jagdish Viramontes - Last Filed: 12/21/22 01:52> ROS Statement: Those systems with pertinent positive or pertinent negative responses have been documented in the HPI. Past Medical History Past Medical History: Cancer, CVA/TIA, Hearing Disorder / Deafness, Hyperlipidemia, Hypertension, Memory Impairment, Prostate Disorder, Sleep Apnea/CPAP/BIPAP, Syncope Additional Past Medical History / Comment(s): HX OF COLON POLYPS, HX OF DIVERTICULITUS, TIA UNKNOWN WHEN, HX OF THYROID AND SKIN CANCER, HX OF BPH. Has heart monitor implant. Bilateral hearing aids. History of Any Multi-Drug Resistant Organisms: None Reported Past Surgical History: Bowel Resection, Prostate Surgery Additional Past Surgical History / Comment(s): THYROIDECTOMY, PARATHYROID SURGERY, TRIGGER FINGER SURGERY, NASAL POLYPS REMOVED, TURP, BILATERAL CATARACTS REMOVED, heart monitor implant. Past Anesthesia/Blood Transfusion Reactions: Motion Sickness Past Psychological History: Anxiety, Depression Additional Psychological History / Comment(s): Spouse states slight depression. Smoking Status: Former smoker Past Alcohol Use History: Occasional Additional Past Alcohol Use History / Comment(s): QUIT SMOKING 1977, SMOKED 1PPD FROM TEENS. Past Drug Use History: None Reported - Past Family History Mother Family Medical History: Cancer Additional Family Medical History / Comment(s): PANCREATIC CANCER. Brother(s) Family Medical History: Cancer Additional Family Medical History / Comment(s): PROSTATE CANCER. <Em Lewis - Last Filed: 12/20/22 22:09> General Exam <Em Lewis - Last Filed: 12/20/22 22:09> Limitations: no limitations General appearance: alert, in no apparent distress Head exam: Present: atraumatic, normocephalic, normal inspection Eye exam: Present: normal appearance, PERRL Pupils: Present: normal accommodation ENT exam: Present: normal exam, normal oropharynx, mucous membranes moist Neck exam: Present: normal inspection, full ROM Respiratory exam: Present: normal lung sounds bilaterally Cardiovascular Exam: Present: regular rate, normal rhythm, normal heart sounds GI/Abdominal exam: Present: soft, normal bowel sounds Extremities exam: Present: normal inspection, full ROM Back exam: Present: normal inspection, full ROM Neurological exam: Present: alert, oriented X3, CN II-XII intact Psychiatric exam: Present: normal affect, normal mood Skin exam: Present: warm, dry <Jagdish Viramontes - Last Filed: 12/21/22 01:52> - General Exam Comments Initial Comments: Visual Physical Exam Vital signs reviewed General: Well-appearing, nontoxic, no acute distress. Head: Normocephalic, atraumatic Eyes: PERRLA, EOMI ENT: Airway patent Chest: Nonlabored breathing Skin: No visual rash, normal skin tone Neuro: Alert and oriented 3 Musculoskeletal: No gross abnormalities (Em Lewis) Course Vital Signs 12/20/22 12/21/22 22:04 01:20 Temperature 98 F 98 F Pulse Rate 56 L 64 Respiratory 18 17 Rate Blood Pressure 142/80 157/83 O2 Sat by Pulse 99 99 Oximetry Medical Decision Making - Lab Data Result diagrams: 12/20/22 22:22 12/20/22 22:22 <Jagdish Viramontes - Last Filed: 12/21/22 01:52> - Medical Decision Making Was pt. sent in by a medical professional or institution (, PA, BAND MAKER, urgent care, hospital, or fci...) When possible be specific @ -No Did you speak to anyone other than the patient for history (EMS, parent, family, police, friend...)? What history was obtained from this source @ -Yes, agents is at the bedside and did confirm the patient had 3 days of continuous episodes and did confirm his HPI. Did you review nursing and triage notes (agree or disagree)? Why? @ -I reviewed and agree with nursing and triage notes Were old charts reviewed (outside hosp., previous admission, EMS record, old EKG, old radiological studies, urgent care reports/EKG's, fci records)? Report findings @ -No old charts were reviewed Differential Diagnosis (chest pain, altered mental status, abdominal pain women, abdominal pain men, vaginal bleeding, weakness, fever, dyspnea, syncope, headache, dizziness, GI bleed, back pain, seizure, CVA, palpatations, mental health)? @ -Gastroenteritis, pancreatitis, cholecystitis EKG interpreted by me (3pts min.). @ -None X-rays interpreted by me (1pt min.). @ -None done CT interpreted by me (1pt min.). @ -None done U/S interpreted by me (1pt. min.). @ -Ultrasound of the right upper quadrant was obtained and was interpreted by myself showing no acute pathology noted. What testing was considered but not performed or refused? (CT, X-rays, U/S, labs)? Why? @ -None What meds were considered but not given or refused? Why? @ -None Did you discuss the management of the patient with other professionals (professionals i.e. , PA, BAND MAKER, lab, RT, psych nurse, social welfare administrator, property condition assessor, teacher, senior escrow officer, case finisher)? Give summary @ -Yes, admitting physician was contacted regarding patient admission. Was smoking cessation discussed for >3mins.? @ -No Was critical care preformed (if so, how long)? @ -No Were there social determinants of health that impacted care today? How? (Homelessness, low income, unemployed, alcoholism, drug addiction, transportation, low edu. Level, literacy, decrease access to med. care, [facility], rehab)? @ -No Was there de-escalation of care discussed even if they declined (Discuss DNR or withdrawal of care, Hospice)? DNR status @ -No What co-morbidities impacted this encounter? (DM, HTN, Smoking, COPD, CAD, Cancer, CVA, ARF, Chemo, Hep., AIDS, mental health diagnosis, sleep apnea, morbid obesity)? @ -Hypertension, memory loss Was patient admitted / discharged? Hospital course, mention meds given and route, prescriptions, significant lab abnormalities, going to OR and other pertinent info. @ -The patient was seen and evaluated emergency department. Physical exam, the patient was resting in bed without any acute distress. Vital signs admission were stable. All laboratory workup and imaging was obtained in triage and on my evaluation, the patient was resting in bed comfortably but with minor pressure noted in the epigastric region. Laboratory workup did show an elevated lipase consistent with pancreatitis. The patient's pancreatitis could possibly explain his symptoms over the last 3 days and due to this, the patient will be admitted for further workup and evaluation. The patient and his are agreeable to this and all other questions were answered appropriately. The patient was admitted in stable condition. Undiagnosed new problem with uncertain prognosis? @ -No Drug Therapy requiring intensive monitoring for toxicity (Heparin, Nitro, Insulin, Cardizem)? @ -No Were any procedures done? @ -No Diagnosis/symptom? @ -Pancreatitis Acute, or Chronic, or Acute on Chronic? @ -Acute Uncomplicated (without systemic symptoms) or Complicated (systemic symptoms)? @ -Uncomplicated Side effects of treatment? @ -No Exacerbation, Progression, or Severe Exacerbation? @ -No Poses a threat to life or bodily function? How? (Chest pain, [place], [place], pneumonia, PE, COPD, DKA, ARF, appy, cholecystitis, CVA, Diverticulitis, Homicidal, Suicidal, threat to staff... and all critical care pts) @ -Yes, worsening pancreatitis can lead to decreased by mouth intake and permanent damage and possible . (Jagdish Viramontes) - Lab Data Lab Results 12/20/22 12/20/22 12/20/22 Range/Units 22:22 22:22 : WBC 12.1 H (3.8-10.6) k/uL RBC 4.47 (4.30-5.90) m/uL Hgb 14.0 (13.0-17.5) gm/dL Hct 41.6 (39.0-53.0) % MCV 93.0 (80.0-100.0) fL MCH 31.2 (25.0-35.0) pg MCHC 33.6 (31.0-37.0) g/dL RDW 13.2 (11.5-15.5) % Plt Count 203 (150-450) k/uL MPV 7.4 Neutrophils % 86 % Lymphocytes % 8 % Monocytes % 4 % Eosinophils % 1 % Basophils % 0 % Neutrophils # 10.5 H (1.3-7.7) k/uL Lymphocytes # 0.9 L (1.0-4.8) k/uL Monocytes # 0.4 (0-1.0) k/uL Eosinophils # 0.1 (0-0.7) k/uL Basophils # 0.0 (0-0.2) k/uL Sodium 141 (137-145) mmol/L Potassium 4.0 (3.5-5.1) mmol/L Chloride 98 (98-107) mmol/L Carbon Dioxide 32 H (22-30) mmol/L Anion Gap 11 mmol/L BUN 24 H (9-20) mg/dL Creatinine 1.29 H (0.66-1.25) mg/dL Est GFR (CKD-EPI)AfAm 59 (>60 ml/min/1.73 sqM) Est GFR (CKD-EPI)NonAf 51 (>60 ml/min/1.73 sqM) Glucose 110 H (74-99) mg/dL Calcium 9.7 (8.4-10.2) mg/dL Total Bilirubin 0.9 (0.2-1.3) mg/dL AST 39 (17-59) U/L ALT 30 (4-49) U/L Alkaline Phosphatase 93 (38-126) U/L Total Protein 8.0 (6.3-8.2) g/dL Albumin 4.5 (3.5-5.0) g/dL Amylase 160 H (30-110) U/L Lipase 691 H (23-300) U/L Urine Color Yellow Urine Appearance Clear (Clear) Urine pH 7.0 (5.0-8.0) Ur Specific [place] 1.020 (1.001-1.035) Urine Protein Trace H (Negative) Urine Glucose (UA) Negative (Negative) Urine Ketones Negative (Negative) Urine Blood Negative (Negative) Urine Nitrite Negative (Negative) Urine Bilirubin Negative (Negative) Urine Urobilinogen 2.0 (<2.0) mg/dL Ur Leukocyte Esterase Negative (Negative) Disposition <Em Lewis - Last Filed: 12/20/22 22:09> Is patient prescribed a controlled substance at d/c from ED?: No Time of Disposition: 01:35 Decision to Admit Reason: Admit from EC Decision Date: 12/21/22 Decision Time: 01:35 <Jagdish Viramontes - Last Filed: 12/21/22 01:52> Clinical Impression: Pancreatitis Disposition: ADMITTED IP TO THIS [facility] Condition: Stable Referrals: Sidney Haynes MD [Primary Care Provider] - 1-2 days
[2022-12-20 22:33] LABS: Basophils % (A) 0 %; Eosinophils # (A) 0.1 k/uL (0-0.7); Eosinophils % (A) 1 %; HCT 41.6 % (39.0-53.0); Lymphocytes # (A) 0.9 k/uL (1.0-4.8); Lymphocytes % (A) 8 %; MCH 31.2 pg (25.0-35.0); MCHC 33.6 g/dL (31.0-37.0); Mean Platelet Volume 7.4; Monocytes # (A) 0.4 k/uL (0-1.0); Monocytes % (A) 4 %; Neutrophils # (A) 10.5 k/uL (1.3-7.7); Neutrophils % (A) 86 %; Platelet Count 203 k/uL (150-450); RBC 4.47 m/uL (4.30-5.90); RDW 13.2 % (11.5-15.5); WBC 12.1 k/uL (3.8-10.6)
[2022-12-20 22:49] LABS: Appearance,Urine Clear (Clear); Bilirubin,Urine Negative (Negative); Blood,Urine Negative (Negative); Color,Urine Yellow; Glucose,Urine (UA) Negative (Negative); Ketones,Urine Negative (Negative); Leukocyte Esterase,Urine Negative (Negative); Nitrite,Urine Negative (Negative); Protein,Urine Trace (Negative)
[2022-12-20 22:49] LABS: Albumin 4.5 g/dL (3.5-5.0); Calcium 9.7 mg/dL (8.4-10.2); Total Bilirubin 0.9 mg/dL (0.2-1.3)
--- NOTE | 2022-12-21 00:50 | US ---
EXAM: US Abdomen Limited, Right Upper Quadrant CLINICAL HISTORY: ITS.REASON US Reason: Postprandial pain, N/V TECHNIQUE: Real-time ultrasound of the right upper quadrant with image documentation. COMPARISON: No relevant prior studies available. FINDINGS: Liver: Unremarkable. No mass. Gallbladder: Unremarkable. No gallstones. Common bile duct: Unremarkable as visualized. No stones. Pancreas: Unremarkable as visualized. Right kidney: Simple cyst in the inferior pole of the right kidney measuring 1.4 cm. Normal cortical thickness and echogenicity. No hydronephrosis. IMPRESSION: No acute findings in the right upper quadrant.
[2022-12-21] MEDS ORDERED: MORPHINE SULFATE 4 MG/ML SYRINGE IV PRN (01:47)
[2022-12-21] MEDS ORDERED: NALOXONE 0.4 MG/ML 1 ML VIAL IV PRN (01:47)
[2022-12-21] MEDS ORDERED: SODIUM CHLORIDE 0.9% 1,000 ML IV SCH (02:00)
[2022-12-21] MEDS ORDERED: bisacodyL 5 MG TABLET.DR PO PRN (10:11)
[2022-12-21] MEDS ORDERED: ACETAMINOPHEN TAB 325 MG TAB PO PRN (10:11)
[2022-12-21] MEDS ORDERED: ONDANSETRON 4 MG/2 ML VIAL IVP PRN (10:11)
[2022-12-21] MEDS ORDERED: MELATONIN 3 MG TABLET PO PRN (10:11)
[2022-12-21] MEDS ORDERED: HYDROmorphone 0.5 MG/0.5 ML SYRINGE IVP PRN (10:11)
--- NOTE | 2022-12-21 10:11 | P.HPIM ---
History of Present Illness H&P Date: 12/21/22 Patient is a 82 yo CM with hx of HTN, HLD, and Memory impairment who prsented to the emergency department with nausea and vomiting. On arrival to the ER his vital signs within normal limits. Laboratory analysis was remarkable for white blood cell count of 20 carbon dioxide 32, BUN 24, and creatinine 1.29 (baseline creatinine 1.3), amylase 160, and lipase 691. In the ER he was started on normal saline. Arrangements were made for admission to the general medical floor. Patient seen and examined at bedside. He is alone at bedside and states that he has some memory issues and his typically helps with those. He reports that for the last 2 days he has had very forceful vomiting every time he has tried to eat anything. He does not report any abdominal pain but states that he just feels as though he has an upset stomach. He denies any fevers or chills. He denies any diarrhea or constipation. He denies any shortness of breath. He denies any sick contacts. He does state this started after he ate a roast prepared by his daughter that just did not seem "right". Vital signs reviewed General: nontoxic, no distress, appears at stated age Derm: warm, dry Eyes: EOMI, no lid lag, anicteric sclera, pupils equal round reactive to light ENT: Nose and ears atraumatic, no thrush, no pharyngeal erythema Cardiovascular: S1S2 reg, no murmur, positive posterior tibial pulse bilateral, no edema, capillary refill less than 2 seconds Lungs: clear to auscultation bilateral, no rhonchi, no rales, no wheeze, no accessory muscle use Abdominal: soft, nontender to palpation, no guarding, no appreciable organomegaly, normal bowel sounds Ext: no gross muscle atrophy, muscle strength 5 out of 5 in all 4 extremities, no contractures Neuro: CN II-XII grossly intact, light touch intact all 4 extremities, finger to nose within normal limits, Psych: Alert, oriented, appropriate affect Assessment: Intractable nausea and vomiting suspect gastroenteritis Elevated lipase secondary to intractable nausea and vomiting Psychosis, 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 Chronic kidney disease stage III at baseline Chronic: Hypertension Dyslipidemia Memory impairment Diverticulosis Imaging: Bladder ultrasound: No acute findings in the right upper quadrant Data Review: As above per HPI Plan: -CT abdomen and pelvis ordered and reviewed: Diverticulosis without acute diverticulitis, minimal sigmoid wall thickening not excluded, left renal cyst, mild right pleural effusion with adjacent atelectasis -Clear liquid diet, will advance as tolerated -Lactated Ringer's at 120 mL/h -Zofran 4 mg every 8 hours when necessary nausea and vomiting - resume home meds of levothyroxine 125 g daily, Zoloft 150 mg daily, Aricept 10 mg daily, Wellbutrin 150 mg daily, Lipitor 20 mg daily, atenolol 25 mg daily, Norvasc 5 mg daily, and aspirin 81 mg daily The patient is admitted with an anticipated less than than 2 midnight stay for evaluation of viral gastroenteritis with intractable nausea and vomiting This dictation was prepared using [employer] voice recognition software. Though every attempt is made to correct errors during during dictation some may still exist. Past Medical History Past Medical History: Cancer, CVA/TIA, Hearing Disorder / Deafness, Hyperlipidemia, Hypertension, Memory Impairment, Prostate Disorder, Sleep A pnea/CPAP/BIPAP, Syncope Additional Past Medical History / Comment(s): HX OF COLON POLYPS, HX OF DIVERTICULITUS, TIA UNKNOWN WHEN, HX OF THYROID AND SKIN CANCER, HX OF BPH. Has heart monitor implant. Bilateral hearing aids. History of Any Multi-Drug Resistant Organisms: None Reported Past Surgical History: Bowel Resection, Prostate Surgery Additional Past Surgical History / Comment(s): THYROIDECTOMY, PARATHYROID SURGERY, TRIGGER FINGER SURGERY, NASAL POLYPS REMOVED, TURP, BILATERAL CATARACTS REMOVED, heart monitor implant. Past Anesthesia/Blood Transfusion Reactions: Motion Sickness Past Psychological History: Anxiety, Depression Additional Psychological History / Comment(s): Spouse states slight depression. Smoking Status: Former smoker Past Alcohol Use History: Occasional Additional Past Alcohol Use History / Comment(s): QUIT SMOKING 1977, SMOKED 1PPD FROM TEENS. Past Drug Use History: None Reported - Past Family History Mother Family Medical History: Cancer Additional Family Medical History / Comment(s): PANCREATIC CANCER. Brother(s) Family Medical History: Cancer Additional Family Medical History / Comment(s): PROSTATE CANCER. Medications and Allergies Home Medications Medication Instructions Recorded Confirmed Type Aspirin [Adult Low Dose Aspirin EC] 81 mg PO HS 12/09/17 12/21/22 History Fluticasone Nasal [place] [Flonase 1 - 2 spr EA NOSTRIL DAILY 12/09/17 12/21/22 History Nasal [place]] Triamterene/Hydrochlorothiazid 1 tab PO QAM 12/09/17 12/21/22 History [Triamterene-Hctz 37.5-25 mg Tb] amLODIPine [Norvasc] 5 mg PO HS 12/09/17 12/21/22 History Vit C/E/Zn/Coppr/Lutein/Zeaxan 2 cap PO DAILY 01/27/18 12/21/22 History [Preservision Areds 2 Softgel] atenoloL [Tenormin] 25 mg PO QAM #30 tab 07/20/19 12/21/22 Rx Atorvastatin Calcium [Lipitor] 20 mg PO HS 12/24/19 12/21/22 History Sertraline [Zoloft] 150 mg PO DAILY 12/24/19 12/21/22 History Levothyroxine Sodium 125 mcg PO DAILY 08/27/21 12/21/22 History Multivitamins, Thera [Multivitamin 1 tab PO DAILY 08/27/21 12/21/22 History (formulary)] Aricept 23mg 23 mg PO DAILY 12/21/22 12/21/22 History buPROPion XL [Wellbutrin XL] 150 mg PO DAILY 12/21/22 12/21/22 History Allergies Allergy/AdvReac Type Severity Reaction Status Date / Time meperidine Allergy Nausea & Verified 12/21/22 09:31 Vomiting clarithromycin [From Biaxin] AdvReac "chest Verified 12/21/22 09:31 pain" Physical Exam Osteopathic Statement: *. No significant issues noted on an osteopathic structural exam other than those noted in the History and Physical/Consult. Vitals: Vital Signs Temp Pulse Resp BP Pulse Ox 12/21/22 09:17 68 18 139/80 99 12/21/22 06:10 98 F 71 19 106/71 96 12/21/22 01:20 98 F 64 17 157/83 99 12/20/22 22:04 98 F 56 L 18 142/80 99 Intake and Output 12/20/22 12/21/22 12/21/22 22:59 06:59 14:59 Other: Weight 85.729 kg Results CBC & Chem 7: 12/20/22 22:22 12/20/22 22:22 Labs: Abnormal Lab Results - Last 24 Hours (Table) 05/12/20/22 12/20/22 Range/Units 22:22 22:22 22:23 WBC 12.1 H (3.8-10.6) k/uL Neutrophils # 10.5 H (1.3-7.7) k/uL Lymphocytes # 0.9 L (1.0-4.8) k/uL Carbon Dioxide 32 H (22-30) mmol/L BUN 24 H (9-20) mg/dL Creatinine 1.29 H (0.66-1.25) mg/dL Glucose 110 H (74-99) mg/dL Amylase 160 H (30-110) U/L Lipase 691 H (23-300) U/L Urine Protein Trace H (Negative)
[2022-12-21] MEDS: LACTATED RINGERS 1,000 ML IV SCH ×2 (11:00→21:53)
--- NOTE | 2022-12-21 12:02 | CT ---
EXAMINATION TYPE: CT abdomen pelvis wo con DATE OF EXAM: 12/21/2022 COMPARISON: None INDICATION: Vomiting, obstruction DLP: 624.5 mGycm, Automated exposure control for dose reduction was used. CONTRAST: 0 mL of Isovue 300. Study performed without Oral Contrast TECHNIQUE: Axial images were obtained from above the diaphragm to the pubic rami in the axial plane a t 5 mm thick sections. Reconstructed images are reviewed on the computer in the coronal plane. FINDINGS: Limited CT sections are obtained the lung bases. Minimal atelectasis may be in the dependent right l junito base. Minimal right pleural effusion appears to be present. Lung bases otherwise are clear . CT ABDOMEN: Liver: Normal Spleen: Normal Pancreas: Normal Adrenal glands: The adrenal glands are normal. Gallbladder: Normal Kidneys: No masses are evident. No hydronephrosis is present. There is a 3.8 cm cyst which may be s eptated in the mid posterior lateral left mid kidney. No renal stones are evident. Aorta: Vascular calcification is within the aorta. Inferior vena cava: Normal. CT PELVIS: Scattered diverticuli are within the ascending colon. A few diverticuli are through the sigmoid colon . Minimal sigmoid colon wall thickening may be present. No adjacent inflammatory changes are identifi ed. This study is performed without oral contrast limiting bowel evaluation. No dilated loops of jason l are evident. No suspicious changes to suggest obstruction Appendix: Not identified. No dilated tubular structure or inflammatory changes are evident. Urinary bladder: Normal. Genitourinary structures: Prostate is prominent. Few calcifications are present. Osseous structures: No suspicious lytic or sclerotic lesions. Facet degenerative changes are in the l ower lumbar spine. IMPRESSIONS: 1. Diverticulosis without acute diverticulitis. Minimal sigmoid colon wall thickening is not exclude d. No adjacent inflammatory changes. 2. Left renal cyst. 3. Minimal right pleural effusion with adjacent atelectasis.
[2022-12-21] MEDS ORDERED: ASPIRIN 81 MG PO SCH (21:00)
[2022-12-21] MEDS ORDERED: ATORVASTATIN 20 MG TAB PO SCH (21:00)
[2022-12-21] MEDS ORDERED: amLODIPine 5 MG TAB PO SCH (21:00)
[2022-12-22] MEDS: LACTATED RINGERS 1,000 ML IV SCH ×2 (05:37→10:44)
[2022-12-22] MEDS ORDERED: LEVOTHYROXINE 125 MCG TAB PO SCH (06:30)
[2022-12-22] MEDS ORDERED: DONEPEZIL 10 MG TAB PO SCH (09:00)
[2022-12-22] MEDS ORDERED: buPROPion XL 150 MG TAB.ER.24H PO SCH (09:00)
[2022-12-22] MEDS ORDERED: atenoloL 25 MG TAB PO SCH (09:00)
[2022-12-22] MEDS ORDERED: SERTRALINE 50 MG TAB PO SCH (09:00)
[2022-12-22] MEDS ORDERED: MULTIVITAMINS, THERA 1 EACH TAB PO SCH (09:00)
[2022-12-22 09:13] LABS: HCT 43.2 % (39.0-53.0); HGB 14.3 gm/dL (13.0-17.5); MCH 30.4 pg (25.0-35.0); MCHC 33.1 g/dL (31.0-37.0); MCV 91.7 fL (80.0-100.0); Mean Platelet Volume 7.7; Platelet Count 177 k/uL (150-450); RBC 4.71 m/uL (4.30-5.90); RDW 13.5 % (11.5-15.5); WBC 8.5 k/uL (3.8-10.6)
[2022-12-22 09:27] LABS: ALT 27 U/L (4-49); AST 43 U/L (17-59); African American GFR (CKD) 73 (>60 ml/min/1.73 sqM); Albumin 4.2 g/dL (3.5-5.0); Albumin/Globulin Ratio 1.3; Alkaline Phosphatase 93 U/L (38-126); Anion Gap 8 mmol/L; Blood Urea Nitrogen 18 mg/dL (9-20); Calcium 9.5 mg/dL (8.4-10.2); Carbon Dioxide 33 mmol/L (22-30); Chloride 98 mmol/L (98-107); Globulin 3.2 g/dL; Glucose 122 mg/dL (74-99); Non-African American GFR(CKD) 63 (>60 ml/min/1.73 sqM); Potassium 3.4 mmol/L (3.5-5.1); Sodium 139 mmol/L (137-145); Total Bilirubin 1.4 mg/dL (0.2-1.3); Total Protein 7.4 g/dL (6.3-8.2)
[2022-12-22] MEDS ORDERED: POTASSIUM CHLORIDE ER 20 MEQ TAB.ER PO STA (13:23)
[2022-12-22 13:29] VITALS: BP 149/72; PULSE 62; RESP 16; TEMP 97.6
--- NOTE | 2022-12-22 13:30 | P.DS ---
Providers Date of admission: 12/21/22 01:47 Expected date of discharge: 12/22/22 Attending physician: Sapphire Crawley MD Primary care physician: Sidney Haynes MD Hospital Course: Discharge Diagnosis: Gastroenteritis Genital nausea and vomiting Elevated lipase secondary to intractable vomiting Leukocytosis, reactive Chronic kidney disease stage IIIB at baseline Hospital Course: Patient is a 82 yo CM with hx of HTN, HLD, and Memory impairment who prsented to the emergency department with nausea and vomiting. On arrival to the ER his vital signs within normal limits. Laboratory analysis was remarkable for white blood cell count of 20 carbon dioxide 32, BUN 24, and creatinine 1.29 (baseline creatinine 1.3), amylase 160, and lipase 691. In the ER he was started on normal saline. Arrangements were made for admission to the general medical floor. Gallbladder ultrasound: No acute findings in the right upper quadrant. CT abdomen and pelvis showed diverticulosis without acute diverticulitis and minimal sigmoid colon wall thickening not excluded no adjacent inflammatory changes, left renal cyst, normal right pleural effusion. The next morning the patient had tolerated clear liquid diet. He then was able to tolerate dry toast. He was determined stable for discharge home. Follow-up: Patient will continue with a bland diet for 3 days, he will follow up with Dr. Patel in one week. Patient seen and examined at bedside. Denies any abdominal pain. He is feeling hungry. He has no other concerns currently. Vital signs reviewed and stable. General: nontoxic, no distress, appears at stated age Derm: warm, dry Head: atraumatic, normocephalic, symmetric Eyes: EOMI, no lid lag, anicteric sclera Mouth: no lip lesion, mucus membranes moist Cardiovascular: S1S2 reg, no murmur, positive posterior tibial pulse bilateral, Lungs: CTA bilateral, no rhonchi, no rales , no accessory muscle use Abdominal: soft, nontender to palpation, no guarding, no appreciable organomegaly Ext: no gross muscle atrophy, no edema, no contractures Neuro: CN II-XI grossly intact, no focal neuro deficits Psych: Alert, oriented, appropriate affect A total of 20 minutes of time were spent preparing this complex discharge summary. Patient was discharged on 12/22/22. This dictation was prepared using [employer] voice recognition software. Though every attempt is made to correct errors during during dictation some may still exist. Patient Condition at Discharge: Stable Plan - Discharge Summary Discharge Rx Participant: Yes New Discharge Prescriptions: Continue amLODIPine [Norvasc] 5 mg PO HS Fluticasone Nasal [place] [Flonase Nasal [place]] 1 - 2 spr EA NOSTRIL DAILY Triamterene/Hydrochlorothiazid [Triamterene-Hctz 37.5-25 mg Tb] 1 tab PO QAM Aspirin [Adult Low Dose Aspirin EC] 81 mg PO HS Vit C/E/Zn/Coppr/Lutein/Zeaxan [Preservision Areds 2 Softgel] 2 cap PO DAILY atenoloL [Tenormin] 25 mg PO QAM #30 tab Atorvastatin Calcium [Lipitor] 20 mg PO HS Sertraline [Zoloft] 150 mg PO DAILY Multivitamins, Thera [Multivitamin (formulary)] 1 tab PO DAILY Levothyroxine Sodium 125 mcg PO DAILY buPROPion XL [Wellbutrin XL] 150 mg PO DAILY Aricept 23mg 23 mg PO DAILY Discharge Medication List Aspirin [Adult Low Dose Aspirin EC] 81 mg PO HS 12/09/17 [History] Fluticasone Nasal [place] [Flonase Nasal [place]] 1 - 2 spr EA NOSTRIL DAILY 12/09/17 [History] Triamterene/Hydrochlorothiazid [Triamterene-Hctz 37.5-25 mg Tb] 1 tab PO QAM 12/09/17 [History] amLODIPine [Norvasc] 5 mg PO HS 12/09/17 [History] Vit C/E/Zn/Coppr/Lutein/Zeaxan [Preservision Areds 2 Softgel] 2 cap PO DAILY 01/27/18 [History] atenoloL [Tenormin] 25 mg PO QAM #30 tab 07/20/19 [Rx] Atorvastatin Calcium [Lipitor] 20 mg PO HS 12/24/19 [History] Sertraline [Zoloft] 150 mg PO DAILY 12/24/19 [History] Levothyroxine Sodium 125 mcg PO DAILY 08/27/21 [History] Multivitamins, Thera [Multivitamin (formulary)] 1 tab PO DAILY 08/27/21 [History] Aricept 23mg 23 mg PO DAILY 12/21/22 [History] buPROPion XL [Wellbutrin XL] 150 mg PO DAILY 12/21/22 [History] Follow up Appointment(s)/Referral(s): Sidney Haynes MD [Primary Care Provider] - 1-2 days Patient Instructions/Handouts: Diet for Stomach Ulcers and Gastritis (ED), Gastroenteritis (DC) Activity/Diet/Wound Care/Special Instructions: Activity: As tolerated Diet: [place] diet for the next 3 days Special Instructions: [place] diet for 3 days then advance if no more nausea or vomiting. You Have some nonspecific thickening of her sigmoid colon on CAT scan. Please discuss with Dr. Haynes if a colonoscopy is warranted depending on when her last was completed and findings. Discharge Disposition: HOME SELF-CARE
== END 2022-12-22 14:51 | disposition home or self-care (01) ==
LOC: EC 21:31 → INTOOBSV 12-21 01:47 → 4SSUR 12-21 01:47 → 5NMEDONC 12-21 14:27
PROVIDERS: ADMIT Internal Medicine; ATTEND Internal Medicine
DX: A08.4 Viral intestinal infection, unspecified (principal); D72.829 Elevated white blood cell count, unspecified; F41.9 Anxiety disorder, unspecified; K57.90 Diverticulosis of intestine, part unspecified, without perforation or abscess without bleeding; J98.11 Atelectasis; J90 Pleural effusion, not elsewhere classified; I12.9 Hypertensive chronic kidney disease with stage 1 through stage 4 chronic kidney disease, or unspecified chronic kidney disease; N18.32 Chronic kidney disease, stage 3b; H91.90 Unspecified hearing loss, unspecified ear; G47.30 Sleep apnea, unspecified; E89.0 Postprocedural hypothyroidism; F32.A Depression, unspecified; I70.0 Atherosclerosis of aorta; E78.5 Hyperlipidemia, unspecified; N28.1 Cyst of kidney, acquired; N40.0 Benign prostatic hyperplasia without lower urinary tract symptoms; Z79.82 Long term (current) use of aspirin; Z79.899 Other long term (current) drug therapy; Z79.890 Hormone replacement therapy; Z88.8 Allergy status to other drugs, medicaments and biological substances; Z88.1 Allergy status to other antibiotic agents; Z85.828 Personal history of other malignant neoplasm of skin; Z85.850 Personal history of malignant neoplasm of thyroid; Z97.4 Presence of external hearing-aid; Z87.19 Personal history of other diseases of the digestive system; Z86.73 Personal history of transient ischemic attack (TIA), and cerebral infarction without residual deficits; Z87.891 Personal history of nicotine dependence; Z98.42 Cataract extraction status, left eye; Z98.41 Cataract extraction status, right eye; Z80.0 Family history of malignant neoplasm of digestive organs; Z80.42 Family history of malignant neoplasm of prostate
CPT/HCPCS: 36415; 74176; 76705; 80053; 81003; 82150; 83690; 85025; 85027; 96360; 96361; 99285

== ENCOUNTER → 2023-01-20 | Outpatient (CLI) | payer MEDICARE ==
--- NOTE | 2022-11-25 10:40 | XR ---
EXAMINATION TYPE: XR foot complete RT DATE OF EXAM: 11/24/2022 COMPARISON: None HISTORY: Pain x2 weeks TECHNIQUE: Three-view right foot FINDINGS: There is a mild hallux valgus deformity. Degenerative joint changes in the proximal distal interphalangeal joint spaces. Plantar calcaneal heel spur is present. No acute fractures are evident. Follow up exams can be performed 7-10 days of acute trauma for contin ued pain. IMPRESSION: 1. No acute osseous abnormality right foot. 2. Mild degenerative joint changes 3. Plantar calcaneal heel spur
--- NOTE | 2023-01-20 12:59 | US ---
EXAMINATION TYPE: US kidneys/renal and bladder DATE OF EXAM: 01/20/2023 COMPARISON: NONE CLINICAL INDICATION: Male, 82 years old with history of N18.31 ATAGE 3 CHR KIDNEY DISEASE; CKD 3 EXAM MEASUREMENTS: Right Kidney: 9.6 x 4.4 x 4.8 cm Left Kidney: 9.6 x 4.6 x 4.5 cm Right Kidney: Hypoechoic area lower pole 1.2 x 1.1 x 1.1 cm Left Kidney: Anechoic area mid pole 3.7 x 3.3 x 3.0 cm. Bladder: anechoic Bilateral Jets seen: no There is no evidence for hydronephrosis at this point in time. No nephrolithiasis is seen. No siobhan s are identified. The urinary bladder is anechoic. Bilateral ureteral jets are seen. IMPRESSION: Stable renal cystic changes.
== END | disposition home or self-care (01) ==
LOC: RADXRMAIN 11-24 15:17 → RADUSWWP 12:13
PROVIDERS: ATTEND Internal Medicine
DX: M19.071 Primary osteoarthritis, right ankle and foot (principal); I73.9 Peripheral vascular disease, unspecified; M77.31 Calcaneal spur, right foot; N18.31 Chronic kidney disease, stage 3a; N28.1 Cyst of kidney, acquired
CPT/HCPCS: 76770

== ENCOUNTER → 2023-02-01 | Outpatient (CLI) | payer MEDICARE ==
[2023-02-01 20:17] LABS: Blood Urea Nitrogen 20.4 mg/dL (9.0-27.0); Calcium 9.6 mg/dL (8.7-10.3); Carbon Dioxide 28.9 mmol/L (21.6-31.8); Chloride 106 mmol/L (96-109); Glucose 92 mg/dL (70-110); Magnesium 2.1 mg/dL (1.5-2.4); Potassium 3.7 mmol/L (3.5-5.5); Sodium 145 mmol/L (135-145)
== END | disposition home or self-care (01) ==
LOC: LABWHC1 13:09
PROVIDERS: ATTEND Internal Medicine
DX: I10 Essential (primary) hypertension (principal)
CPT/HCPCS: 36415; 80048; 83735

== ENCOUNTER → 2023-03-16 | Outpatient (CLI) | payer MEDICARE ==
--- NOTE | 2023-03-16 14:30 | US ---
EXAMINATION TYPE: US arterial LE single level DATE OF EXAM: 03/16/2023 2:21 PM CLINICAL INDICATION: Male, 82 years old with history of I73.9 PERIPHERAL VASCULAR DISEASE, UNSPECIFIE D; Numbness within right foot, better now that he changed shoes History of: Smoker: previous Hypertension: yes Diabetic: no Hyperlipidemia: no TIA/CVA: no Previous Vascular Surgery: no CAD: no RI: no Vascular Ulcers: no Claudication: no Gangrene: no Doppler Waveforms: Right: Multiphasic Left: Multiphasic Right Brachial Pressure: 117 Left Brachial Pressure: 117 Ankle-Brachial Indices: Right: 1.2 Left: 1.4 Toe Brachial Indices: Right: 0.9 Left: 0.8 IMPRESSION: No evidence for significant peripheral arterial vascular disease.
== END | disposition home or self-care (01) ==
LOC: RADUSWWP 13:35
PROVIDERS: ATTEND Internal Medicine
DX: I73.9 Peripheral vascular disease, unspecified (principal)
CPT/HCPCS: 93922

== ENCOUNTER → 2023-03-21 | Outpatient (CLI) | payer MEDICARE ==
[2023-03-22 03:46] LABS: Albumin 4.4 d/dL (3.8-4.9); Protein, Total 6.8 d/dL (6.2-8.2)
[2023-03-22 03:57] LABS: Creatine Kinase 261 U/L (35-257)
[2023-03-22 19:38] LABS: Gamma Globulin 1.01 d/dL (0.70-1.50)
== END | disposition home or self-care (01) ==
LOC: LABWHC1 14:38
PROVIDERS: ATTEND Psychiatry & Neurology Neurology
DX: G62.9 Polyneuropathy, unspecified (principal)
CPT/HCPCS: 36415; 82550; 82607; 82747; 83036; 84165; 85652; 86618

== ENCOUNTER → 2023-04-06 | Outpatient (CLI) | payer MEDICARE ==
--- NOTE | 2023-04-08 09:05 | MR ---
EXAMINATION TYPE: MR lumbar spine wo con DATE OF EXAM: 04/06/2023 6:46 PM COMPARISON: MRI kidney 02/25/2023. CLINICAL INDICATION: Male, 82 years old with history of M54.16 RADICULOPATHY, LUMBAR REGION; Low back pain that radiates down right side. TECHNIQUE: Multi planar, multi sequence imaging was performed utilizing: T1-weighted, T2-weighted, a nd turbo inversion recovery imaging of the lumbar spine. IV Contrast: None. FINDINGS: Motion artifact limits evaluation. Alignment: The lumbar vertebral bodies have preserved heights and alignment. Cord: The conus medullaris and the distal spinal cord appear unremarkable with regards to their signa l intensity and morphology. Bones/Discs: Degeneration changes with osteophyte formation disc space narrowing and facet joint arth ropathy. Modic endplate changes worse at L5-S1. Reactive inversion recovery edema most pronounced at the adjoining endplates of L3 and L4. T12-L1: No evidence of significant spinal canal stenosis or neural foraminal stenosis. L1-L2: No evidence of significant spinal canal stenosis or neural foraminal stenosis. L2-L3: Disc bulge and facet joint arthropathy result in mild spinal canal and moderate bilateral neur al foraminal stenosis. L3-L4: Disc bulge and facet joint arthropathy result in moderate spinal canal and moderate bilateral neural foraminal stenosis. L4-L5: Disc bulge and facet joint arthropathy result in mild spinal canal and moderate bilateral neur al foraminal stenosis. L5-S1: Left central disc protrusion/subarticular without significant spinal canal stenosis. The neura l foramen with facet joint arthropathy are mild to moderate narrowed. This may be abutting the formin g S1-S2 nerves is 301 image 7. No significant spinal canal or neural foraminal stenosis in the remainder of the visualized levels. Other findings: Bosniak type II renal cyst on the left as seen on prior renal MRI IMPRESSION: 1. Moderate to severe degeneration changes with moderate L3-L4 spinal and L2-L3 spinal canal stenosi s. Additional multilevel neural foraminal stenosis as described above. 2. L5-S1 left disc protrusion without significant spinal canal or neural foraminal stenosis.This may be abutting the forming S1-S2 nerves.
== END | disposition home or self-care (01) ==
LOC: RADMRIMAIN 17:32
PROVIDERS: ATTEND Psychiatry & Neurology Neurology
DX: M51.17 Intervertebral disc disorders with radiculopathy, lumbosacral region (principal); M47.26 Other spondylosis with radiculopathy, lumbar region; M48.061 Spinal stenosis, lumbar region without neurogenic claudication; M99.73 Connective tissue and disc stenosis of intervertebral foramina of lumbar region
CPT/HCPCS: 72148

== ENCOUNTER → 2023-05-30 | Outpatient (CLI) | payer MEDICARE ==
[2023-05-30 16:25] LABS: ALT 28 U/L (4-49); AST 35 U/L (17-59); African American GFR (CKD) 64 (>60 ml/min/1.73 sqM); Albumin 4.3 g/dL (3.5-5.0); Albumin/Globulin Ratio 1.4; Alkaline Phosphatase 89 U/L (38-126); Anion Gap 10 mmol/L; Blood Urea Nitrogen 23 mg/dL (9-20); Calcium 9.9 mg/dL (8.4-10.2); Carbon Dioxide 29 mmol/L (22-30); Chloride 102 mmol/L (98-107); Globulin 3.1 g/dL; Glucose 78 mg/dL (74-99); Non-African American GFR(CKD) 55 (>60 ml/min/1.73 sqM); Potassium 3.4 mmol/L (3.5-5.1); Sodium 141 mmol/L (137-145); Total Bilirubin 0.6 mg/dL (0.2-1.3); Total Protein 7.4 g/dL (6.3-8.2)
[2023-05-30 19:00] LABS: Basophils % (A) 1 %; Eosinophils # (A) 0.1 k/uL (0-0.7); Eosinophils % (A) 1 %; HCT 39.4 % (39.0-53.0); HGB 13.1 gm/dL (13.0-17.5); Lymphocytes # (A) 1.3 k/uL (1.0-4.8); Lymphocytes % (A) 17 %; MCH 31.1 pg (25.0-35.0); MCHC 33.1 g/dL (31.0-37.0); MCV 93.8 fL (80.0-100.0); Mean Platelet Volume 8.8; Monocytes # (A) 0.4 k/uL (0-1.0); Monocytes % (A) 6 %; Neutrophils # (A) 5.6 k/uL (1.3-7.7); Neutrophils % (A) 73 %; Platelet Count 225 k/uL (150-450); RDW 13.6 % (11.5-15.5); WBC 7.7 k/uL (3.8-10.6)
[2023-05-31 04:09] LABS: Erythrocyte Sedimentation Rate 32 mm/Hr (0-20)
[2023-05-31 06:09] LABS: Appearance,Urine Clear (Clear); Bilirubin,Urine Negative (Negative); Blood,Urine Negative (Negative); Color,Urine Yellow (Yellow); Ketones,Urine Negative (Negative); Nitrite,Urine Negative (Negative); Specific Gravity,Urine 1.018 (1.001-1.030)
[2023-05-31 06:13] LABS: Bacteria,Urine None Seen (None Seen)
== END | disposition home or self-care (01) ==
LOC: LABWHC1 13:37
PROVIDERS: ATTEND Psychiatry & Neurology Neurology
DX: N39.0 Urinary tract infection, site not specified (principal); M79.9 Soft tissue disorder, unspecified; R44.3 Hallucinations, unspecified; F03.90 Unspecified dementia, unspecified severity, without behavioral disturbance, psychotic disturbance, mood disturbance, and anxiety
CPT/HCPCS: 36415; 80053; 81001; 85025; 85652; 87086

== ENCOUNTER → 2023-06-06 | Outpatient (CLI) | payer MEDICARE ==
--- NOTE | 2023-06-06 14:40 | XR ---
EXAMINATION TYPE: XR sacrum coccyx DATE OF EXAM: 06/06/2023 COMPARISON: NONE HISTORY: Pain Technique: Three views are submitted. FINDINGS: Sacrum is intact. There is a severe hypertrophic and degenerative change lumbosacral juncti on. Mild hypertrophic arthropathy of the SI joints. No sclerosis. Slight subluxation of the distal co ccygeal segment appears to be chronic. Unchanged from CT scan of 12/21/2022 may be related to prior tr auma or congenital.. Coccyx appears to be intact. Visualized pelvic structures intact. IMPRESSION: 1. Mild hypertrophic arthropathy of the SI joints. 2. Hypertrophic and severe degenerative changes L5-S1. 3. Stable subluxation distal coccygeal segment may be congenital or related to remote trauma.
--- NOTE | 2023-06-06 14:43 | XR ---
EXAMINATION TYPE: XR foot complete RT DATE OF EXAM: 06/06/2023 COMPARISON: NONE HISTORY: Pain TECHNIQUE: Three views are submitted. FINDINGS: The osseous structures are intact. There is no acute fracture or dislocation. Moderate hypertrophi c arthropathy first MTP. DIP and PIP joint arthropathy. Large plantar calcaneal spur. Hammertoe defor mities noted. IMPRESSION: 1. No acute fracture or dislocation. If symptoms persist, follow-up exam in 7 to 10 days could be ob tained. 2. Moderate hypertrophic arthropathy first MTP.
--- NOTE | 2023-06-06 14:48 | XR ---
EXAMINATION TYPE: XR Hip Complete RT DATE OF EXAM: 06/06/2023 COMPARISON: 07/16/2020 HISTORY: Pain TECHNIQUE: 2 views submitted FINDINGS: There is moderate hypertrophic arthropathy of the hip. Correlate for femoral acetabular impingement. Vascular calcification noted. Slight foreshortening of the right hip. No definite fracture line. Report called to the patient's clinician at 06/06/2023 at 2:45 PM. IMPRESSION: 1. Slight foreshortening of the femoral neck. Patient is clinical concern for fracture or difficulty with weightbearing would recommend dedicated CT scan to exclude fracture. 2. Moderate hypertrophic arthropathy right hip.
== END | disposition home or self-care (01) ==
LOC: RADXRMAIN 13:30
PROVIDERS: ATTEND Internal Medicine
DX: M47.817 Spondylosis without myelopathy or radiculopathy, lumbosacral region (principal); M51.37 Other intervertebral disc degeneration, lumbosacral region; W19.XXXA Unspecified fall, initial encounter
CPT/HCPCS: 72220; 73502

== ENCOUNTER → 2023-06-07 | Outpatient (CLI) | payer MEDICARE ==
--- NOTE | 2023-06-07 15:43 | CT ---
EXAMINATION TYPE: CT hip RT wo con DATE OF EXAM: 06/07/2023 COMPARISON: X-ray 06/06/2023 HISTORY: Unspecified fall, RT hip pain. CT recommended post hip xray to exclude fracture, noting slig ht foreshortening of femoral neck. CT DLP: 440 mGycm Automated exposure control for dose reduction was used. FINDINGS: Hypertrophic and degenerative changes of the spine are seen. A vacuum disc and severe degenerative ch anges L4-5 and L5-S1 with bilateral foraminal encroachment. These findings involving the iliac crest. There is moderate concentric narrowing of the hip joint with hypertrophic change of the acetabulum. C orrelate for femoral acetabular impingement. Spurring along the greater trochanter and lesser trochan ter can be seen with trochanteric bursitis. A vacuum changes involving the SI joint. Rounded area of sclerosis involving the iliac bone likely re lated to incidental bone island. There is a small fat-containing inguinal hernia. Atherosclerotic change of the vasculature. IMPRESSION: 1. No acute fracture. 2. Moderate hypertrophic arthropathy of the hip correlate for femoral acetabular impingement. 3. Severe degenerative disc disease lower lumbosacral spine.
== END | disposition home or self-care (01) ==
LOC: RADCTMAIN 11:28
PROVIDERS: ATTEND Internal Medicine
DX: M51.37 Other intervertebral disc degeneration, lumbosacral region (principal); E88.89 Other specified metabolic disorders; M12.851 Other specific arthropathies, not elsewhere classified, right hip

== ENCOUNTER 2023-07-06 12:48 | Observation (INO) | payer MEDICARE ==
--- NOTE | 2023-07-06 13:07 | ED ---
Head Injury HPI - General Source: patient (\\), family, RN notes reviewed Mode of arrival: wheelchair Limitations: no limitations <Barry Rea - Last Filed: 07/06/23 13:05> <Isaias Peacock - Last Filed: 07/06/23 16:41> - General Chief complaint: Head Injury Stated complaint: fall-no thinners Time Seen by Provider: 07/06/23 13:05 - History of Present Illness Initial comments: 82-year-old male presents emergency Department with family for frequent falls. Patient started having frequent falls, has fallen more than 5 times. Patient has a hematoma on his left frontal aspect. Patient does have a history of de mentia and which she contacted PCP recommended to stop some of his medications. Patient denies any extremity injury other mild knee discomfort. (Barry Rea) Dictation was produced using [employer] dictation software. please excuse any grammatical, word or spelling errors. Chief Complaint: 82-year-old male with history of dementia presents after fall History of Present Illness: 82-year-old male who presents after fall. Last night he fell while taking the garbage out. Fell and landed forward. States that he tripped on the curb. Patient at the bedside states that he's been having frequent falls recently. reports the patient is otherwise been in his usual state of health. He is complaining of left hip pain, right knee pain and forehead pain. The ROS documented in this emergency department record has been reviewed and confirmed by me. Those systems with pertinent positive or negative responses have been documented in the HPI. All other systems are other negative and/or noncontributory. (Isaias Peacock) - Related Data Home Medications Medication Instructions Recorded Confirmed Aspirin [Adult Low Dose Aspirin EC] 81 mg PO HS 12/09/17 12/21/22 Fluticasone Nasal [place] [Flonase 1 - 2 spr EA NOSTRIL DAILY 12/09/17 12/21/22 Nasal [place]] Triamterene/Hydrochlorothiazid 1 tab PO QAM 12/09/17 12/21/22 [Triamterene-Hctz 37.5-25 mg Tb] amLODIPine [Norvasc] 5 mg PO HS 12/09/17 12/21/22 Vit C/E/Zn/Coppr/Lutein/Zeaxan 2 cap PO DAILY 01/27/18 12/21/22 [Preservision Areds 2 Softgel] Atorvastatin Calcium [Lipitor] 20 mg PO HS 12/24/19 12/21/22 Sertraline [Zoloft] 150 mg PO DAILY 12/24/19 12/21/22 Levothyroxine Sodium 125 mcg PO DAILY 08/27/21 12/21/22 Multivitamins, Thera [Multivitamin 1 tab PO DAILY 08/27/21 12/21/22 (formulary)] Aricept 23mg 23 mg PO DAILY 12/21/22 12/21/22 buPROPion XL [Wellbutrin XL] 150 mg PO DAILY 12/21/22 12/21/22 Previous Rx's Medication Instructions Recorded atenoloL [Tenormin] 25 mg PO QAM #30 tab 07/20/19 Allergies/Adverse reactions: Allergies Allergy/AdvReac Type Severity Reaction Status Date / Time meperidine Allergy Nausea & Verified 12/21/22 09:31 Vomiting clarithromycin [From Biaxin] AdvReac "chest Verified 12/21/22 09:31 pain" Review of Systems ROS Other: All systems not noted in ROS Statement are negative. <Barry Rea - Last Filed: 07/06/23 13:05> ROS Other: All systems not noted in ROS Statement are negative. <Isaias Peacock - Last Filed: 07/06/23 16:41> ROS Statement: Those systems with pertinent positive or pertinent negative responses have been documented in the HPI. Past Medical History Past Medical History: Cancer, CVA/TIA, Hearing Disorder / Deafness, Hyperlipidemia, Hypertension, Memory Impairment, Prostate Disorder, Sleep Apnea/CPAP/BIPAP, Syncope Additional Past Medical History / Comment(s): HX OF COLON POLYPS, HX OF DIVERTICULITUS, TIA UNKNOWN WHEN, HX OF THYROID AND SKIN CANCER, HX OF BPH. Has heart monitor implant. Bilateral hearing aids. History of Any Multi-Drug Resistant Organisms: None Reported Past Surgical History: Bowel Resection, Prostate Surgery Additional Past Surgical History / Comment(s): THYROIDECTOMY, PARATHYROID SURGERY, TRIGGER FINGER SURGERY, NASAL POLYPS REMOVED, TURP, BILATERAL CATARACTS REMOVED, heart monitor implant. Past Anesthesia/Blood Transfusion Reactions: Motion Sickness Past Psychological History: Anxiety, Depression Smoking Status: Former smoker Past Alcohol Use History: Occasional Past Drug Use History: None Reported - Past Family History Mother Family Medical History: Cancer Additional Family Medical History / Comment(s): PANCREATIC CANCER. Brother(s) Family Medical History: Cancer Additional Family Medical History / Comment(s): PROSTATE CANCER. <Barry Rea - Last Filed: 07/06/23 13:05> General Exam Limitations: no limitations <Barry Rea - Last Filed: 07/06/23 13:05> <Isaias Peacock - Last Filed: 07/06/23 16:41> - General Exam Comments Initial Comments: Visual Physical Exam Vital signs reviewed General: Well-appearing, nontoxic, no acute distress. Head: Normocephalic, hematoma Eyes: PERRLA, EOMI ENT: Airway patent Chest: Nonlabored breathing Skin: No visual rash, normal skin tone Neuro: Alert and oriented 3 Musculoskeletal: No gross abnormalities (Barry Rea) PHYSICAL EXAM: General Impression: Alert and oriented x3/4, not in acute distress HEENT: Abrasion to the forehead, extra-ocular movements intact, pupils equal and reactive to light bilaterally, mucous membranes moist. Cardiovascular: Heart regular rate and rhythm Chest: Able to complete full sentences, no retractions, no tachypnea Abdomen: abdomen soft, non-tender, non-distended, no organomegaly Musculoskeletal: Pulses present and equal in all extremities, no peripheral edema, abrasion to the right knee, palpatory tenderness over the left hip Motor: no focal deficits noted Neurological: CN II-XII grossly intact, no focal motor or sensory deficits noted Skin: Intact with no visualized rashes Psych: Normal affect and mood (Isaias Peacock) Course <Isaias Peacock - Last Filed: 07/06/23 16:41> Vital Signs 07/06/23 07/06/23 13:00 15:05 Temperature 98.2 F Pulse Rate 65 62 Respiratory 16 18 Rate Blood Pressure 136/72 134/70 O2 Sat by Pulse 99 99 Oximetry - Reevaluation(s) Reevaluation #1: 07/06/23 15:56 My EKG interpretation: Ventricular rate 59, sinus bradycardia,. Interval 170, QRS 1:30, QTc 445. No CO prolongation, no QTC prolongation, no ST or T-wave changes noted. EKG compared to 07/19/2019 showing no changes. Overall, this EKG is unremarkable (Isaias Peacock) Medical Decision Making <Barry Rea - Last Filed: 07/06/23 13:05> - Lab Data Result diagrams: 07/06/23 13:12 07/06/23 13:12 <Isaias Peacock - Last Filed: 07/06/23 16:41> - Medical Decision Making I completed the quick note portion of this chart signed Barry Rea PA-C (Barry Rea) Was pt. sent in by a medical professional or institution (, PA, SUPERVISOR LIQUEFACTION, urgent care, hospital, or intermediate...) When possible be specific @ -No Did you speak to anyone other than the patient for history (EMS, parent, family, police, friend...)? What history was obtained from this source @ -Reevaluated approximate 4:00 PM and family states that he appears to be more confused. Did you review nursing and triage notes (agree or disagree)? Why? @ -I reviewed and agree with nursing and triage notes Were old charts reviewed (outside hosp., previous admission, EMS record, old EKG, old radiological studies, urgent care reports/EKG's, intermediate records)? Report findings @ -No old charts were reviewed Differential Diagnosis (chest pain, altered mental status, abdominal pain women, abdominal pain men, vaginal bleeding, musculoskeletal, weakness, fever, dyspnea, syncope, headache, dizziness, GI bleed, back pain, seizure, CVA, palpatations, mental health)? @ -CDifferential Altered Mental Status: Hypoglycemia, DKA, hypercapnia, ETOH, overdose, CO poisoning, trauma, myxedema coma, HTN encephalopathy, infection, encephalitis, psychosis, intercranial hemorrhage, hepatic encephalopathy, meningitis, CVA, this is not meant to be an all-inclusive list EKG interpreted by me (3pts min.). @ -See above X-rays interpreted by me (1pt min.). @ -The x-ray and left hip and pelvis x-ray shows no acute processes. knee X- rays unremarkable CT interpreted by me (1pt min.). @ -Computed tomography scan head and C-spine shows no acute processes. U/S interpreted by me (1pt. min.). @ -None done What testing was considered but not performed or refused? (CT, X-rays, U/S, labs)? Why? @ -None What meds were considered but not given or refused? Why? @ -None Did you discuss the management of the patient with other professionals (professionals i.e. , PA, SUPERVISOR [employer]QUEFACTION, lab, RT, psych nurse, health care social worker, salt refiner, teacher, chief fundraising officer, case investigator)? Give summary @ -Case discussed with hospitalist for admission. Was smoking cessation discussed for >3mins.? @ -No Was critical care preformed (if so, how long)? @ -No Were there social determinants of health that impacted care today? How? (Homelessness, low income, unemployed, alcoholism, drug addiction, transportation, low edu. Level, literacy, decrease access to med. care, correction, rehab)? @ -No Was there de-escalation of care discussed even if they declined (Discuss DNR or withdrawal of care, Hospice)? DNR status @ -No What co-morbidities impacted this encounter? (DM, HTN, Smoking, COPD, CAD, Cancer, CVA, ARF, Chemo, Hep., AIDS, mental health diagnosis, sleep apnea, morbid obesity)? @ -None Was patient admitted / discharged? Hospital course, mention meds given and route, prescriptions, significant lab abnormalities, going to OR and other pertinent info. @ -82-year-old male presents emergency Department after a fall. Family reports that patient has been having worsening falls. Today he seemed to be much more confused. Vital signs upon arrival are within acceptable limits. Laboratory evaluation obtained. CBC and metabolic panel and urinalysis negative. Imaging studies are negative. Patient evaluated at the bedside and family is reporting that patient's mentation is significantly worse today than it has been worse in last 2 days. Will be admitted to hospitalist with consultation to neurology and psychiatry. Undiagnosed new problem with uncertain prognosis? @ -No Drug Therapy requiring intensive monitoring for toxicity (Heparin, Nitro, Insulin, Cardizem)? @ -No Were any procedures done? @ -No Diagnosis/symptom? Acute, or Chronic, or Acute on Chronic? Uncomplicated (without systemic symptoms) or Complicated (systemic symptoms)? @ -Frequent falls, altered mental status Side effects of treatment? @ -No Exacerbation, Progression, or Severe Exacerbation? @ -No Poses a threat to life or bodily function? How? (Chest pain, USA, MD, pneumonia, PE, COPD, DKA, ARF, appy, cholecystitis, CVA, Diverticulitis, Homicidal, Suicidal, threat to staff... and all critical care pts) @ -yes (Isaias Peacock) - Lab Data Lab Results 07/06/23 07/06/23 07/06/23 Range/Units 13:12 13:12 15:31 WBC 9.6 (3.8-10.6) k/uL RBC 4.27 L (4.30-5.90) m/uL Hgb 13.0 (13.0-17.5) gm/dL Hct 39.4 (39.0-53.0) % MCV 92.2 (80.0-100.0) fL MCH 30.4 (25.0-35.0) pg MCHC 32.9 (31.0-37.0) g/dL RDW 13.6 (11.5-15.5) % Plt Count 216 (150-450) k/uL MPV 7.4 Neutrophils % 83 % Lymphocytes % 9 % Monocytes % 5 % Eosinophils % 1 % Basophils % 0 % Neutrophils # 8.0 H (1.3-7.7) k/uL Lymphocytes # 0.9 L (1.0-4.8) k/uL Monocytes # 0.5 (0-1.0) k/uL Eosinophils # 0.1 (0-0.7) k/uL Basophils # 0.0 (0-0.2) k/uL Sodium 143 (137-145) mmol/L Potassium 3.2 L (3.5-5.1) mmol/L Chloride 103 (98-107) mmol/L Carbon Dioxide 26 (22-30) mmol/L Anion Gap 14 mmol/L BUN 28 H (9-20) mg/dL Creatinine 1.25 (0.66-1.25) mg/dL Est GFR (CKD-EPI)AfAm 62 (>60 ml/min/1.73 sqM) Est GFR (CKD-EPI)NonAf 53 (>60 ml/min/1.73 sqM) Glucose 108 H (74-99) mg/dL Calcium 9.9 (8.4-10.2) mg/dL Magnesium 2.3 (1.6-2.3) mg/dL Total Bilirubin 0.8 (0.2-1.3) mg/dL AST 49 (17-59) U/L ALT 30 (4-49) U/L Alkaline Phosphatase 92 (38-126) U/L Total Protein 7.9 (6.3-8.2) g/dL Albumin 4.5 (3.5-5.0) g/dL Urine Color Colorless Urine Appearance Clear (Clear) Urine pH 6.5 (5.0-8.0) Ur Specific [place] 1.015 (1.001-1.035) Urine Protein Negative (Negative) Urine Glucose (UA) Negative (Negative) Urine Ketones Negative (Negative) Urine Blood Negative (Negative) Urine Nitrite Negative (Negative) Urine Bilirubin Negative (Negative) Urine Urobilinogen <2.0 (<2.0) mg/dL Ur Leukocyte Esterase Negative (Negative) Disposition <Barry Rea - Last Filed: 07/06/23 13:05> Decision Time: 16:41 <Isaias Peacock - Last Filed: 07/06/23 16:41> Clinical Impression: AMS (altered mental status) Disposition: ADMITTED IP TO THIS [facility] Condition: Fair Referrals: Sidney Haynes MD [Primary Care Provider] - 1-2 days
[2023-07-06 13:25] LABS: Basophils % (A) 0 %; Eosinophils # (A) 0.1 k/uL (0-0.7); Eosinophils % (A) 1 %; HCT 39.4 % (39.0-53.0); Lymphocytes # (A) 0.9 k/uL (1.0-4.8); Lymphocytes % (A) 9 %; MCH 30.4 pg (25.0-35.0); MCHC 32.9 g/dL (31.0-37.0); MCV 92.2 fL (80.0-100.0); Mean Platelet Volume 7.4; Monocytes # (A) 0.5 k/uL (0-1.0); Monocytes % (A) 5 %; Neutrophils % (A) 83 %; Platelet Count 216 k/uL (150-450); RBC 4.27 m/uL (4.30-5.90); RDW 13.6 % (11.5-15.5); WBC 9.6 k/uL (3.8-10.6)
[2023-07-06 13:37] LABS: ALT 30 U/L (4-49); AST 49 U/L (17-59); African American GFR (CKD) 62 (>60 ml/min/1.73 sqM); Albumin 4.5 g/dL (3.5-5.0); Alkaline Phosphatase 92 U/L (38-126); Anion Gap 14 mmol/L; Blood Urea Nitrogen 28 mg/dL (9-20); Calcium 9.9 mg/dL (8.4-10.2); Carbon Dioxide 26 mmol/L (22-30); Chloride 103 mmol/L (98-107); Glucose 108 mg/dL (74-99); Magnesium 2.3 mg/dL (1.6-2.3); Non-African American GFR(CKD) 53 (>60 ml/min/1.73 sqM); Potassium 3.2 mmol/L (3.5-5.1); Sodium 143 mmol/L (137-145); Total Bilirubin 0.8 mg/dL (0.2-1.3); Total Protein 7.9 g/dL (6.3-8.2)
--- NOTE | 2023-07-06 14:07 | CT ---
EXAMINATION TYPE: CT brain cspine wo con DATE OF EXAM: 07/06/2023 COMPARISON: None available. HISTORY: Fall on thinners. CT DLP: 1315.6 mGycm Automated exposure control for dose reduction was used. TECHNIQUE: CT scan of the head and cervical spine are performed without contrast. FINDINGS: There is no acute intracranial hemorrhage, mass effect, or midline shift identified. The ventricles and sulci are within normal limits in size. The globes are intact and the visualized sin uses are clear. There is mild soft tissue swelling the left frontal region. Cervical spine is visualized in its entirety from C1 through upper thoracic levels and demonstrates s atisfactory alignment without evidence of acute fracture or dislocation. Prevertebral soft tissue ap pears within normal limits. The C1-C2 articulation is unremarkable. Mild, moderate in significant d egenerative disc and facet changes as well as uncovertebral joint changes are seen throughout the spi ne. There is no prevertebral soft tissue swelling. IMPRESSION: 1. There is no acute fracture or dislocation evident in the cervical spine. 2. No acute intracranial hemorrhage, mass effect, or midline shift is seen. 3. Multilevel degenerative changes throughout the spine.
--- NOTE | 2023-07-06 14:59 | XR ---
EXAMINATION TYPE: XR Hip LT and AP Pelvis DATE OF EXAM: 07/06/2023 COMPARISON: NONE HISTORY: Fall. TECHNIQUE: A single AP view of the pelvis is obtained. Two views of the left hip are obtained. FINDINGS: There is no acute fracture/dislocation evident in the pelvis. The hip and sacroiliac join ts appear symmetric and unremarkable. The overlying soft tissue appears unremarkable. Two views of left hip show no acute fracture or dislocation. No focal lytic or sclerotic lesion seen in the proximal left femur. The overlying soft tissue is unremarkable. Mild degenerative changes a re seen within the hip joint spaces bilaterally. IMPRESSION: There is no acute fracture or dislocation in the pelvis or left hip.
--- NOTE | 2023-07-06 15:00 | XR ---
3 view right knee. DATE: 07/06/2023. COMPARISON: None available. HISTORY: Pain after fall. FINDINGS: There is no fracture, subluxation or dislocation. The joint spaces are preserved. There is no joint effusion. IMPRESSION: No fracture, subluxation or dislocation.
[2023-07-06 15:54] LABS: Appearance,Urine Clear (Clear); Bilirubin,Urine Negative (Negative); Blood,Urine Negative (Negative); Color,Urine Colorless; Glucose,Urine (UA) Negative (Negative); Ketones,Urine Negative (Negative); Leukocyte Esterase,Urine Negative (Negative); Nitrite,Urine Negative (Negative); PH, Urine 6.5 (5.0-8.0); Protein,Urine Negative (Negative); Specific Gravity,Urine 1.015 (1.001-1.035); Urobilinogen,Urine <2.0 mg/dL (<2.0)
[2023-07-06] MEDS ORDERED: NALOXONE 0.4 MG/ML 1 ML VIAL IV PRN (16:39)
[2023-07-06] MEDS ORDERED: LORazepam 2 MG/ML INJ IM STA (16:51)
[2023-07-06] MEDS ORDERED: POTASSIUM CHLORIDE ER 20 MEQ TAB.ER PO STA (18:22)
--- NOTE | 2023-07-06 18:28 | P.HPIM ---
History of Present Illness H&P Date: 07/06/23 82 year old M with PMH of dementia, hypothyroidism, hypertension, dyslipidemia, history of CVA presents to the ED brought in by his and son. Symptoms rapidly getting worse over the past 2 months. reports patient has auditory and visual hallucinations at night. Wonders out of the house. At times, he is combative. Evaluated by Dr. Flores in the past, previously started on Aricept which did not help. Recently started on Seroquel and titrated up which allowed him to be sedated at night but increased his delirium during the daytime. Has also been having frequent falls from loss of balance. Now feels unsafe to take care of him at home. In the ED he underwent extensive evaluation. CBC RBC count 4.27. CMP K 3.2, BUN 28, glu 108. UA negative. Head and C-spine CT no fracture, no acute intracranial hemorrhage, multilevel DJD. EKG sinus bradycardia with Q waves noted. Knee XR negative. Hip XR negative. Pertinent positives and negatives as discussed in HPI, a complete review of systems was performed and all other systems are negative. General: non toxic, no distress, appears at stated age Derm: warm, dry, various bruising in different stages of healing Head: atraumatic, normocephalic, symmetric, left scalp hematoma Eyes: EOMI, no lid lag, anicteric sclera Cardiovascular: good distal perfusion in all 4 extremities Lungs: breathing comfortably, no accessory muscle use Ext: no gross muscle atrophy, no edema, no contractures Neuro: no focal neuro deficits Delirium with worsening dementia Frequent falls Hypokalemia Prerenal azotemia Based on my assessment of this patient, this patient meets a high complexity level of care. Patient has an acute diagnosis of worsening dementia with delirium and frequent falls that poses a threat to life or bodily function. Delirium with worsening dementia: Restart Seroquel 25 mg PO QHS. Frequent redirection. Fall precautions. Window side bed. Avoid sedative medications. Check B12, Folate, Ammonia, TSH. Neurology and Psychiatry consulted. Frequent falls: PT and OT consult. Fall precautions. Hypokalemia: KCl 40 meq PO x 1 ordered. Prerenal azotemia: Hold diuretic. NS at 75 cc/hr. Previous MRI brain done in 01/2022 shows high signal white matter legion in the right parietal lobe consistent with old lacunar infarct or demyelinating disease. CODE STATUS: FULL CODE DVT Prophylaxis: Lovenox SQ GI Prophylaxis: Pepcid Designated medical POA if patient is not able to make medical decisions for themselves: I have reviewed the following information security consultant notes: I have reviewed the results of the following tests: As above. I have ordered the following tests: As above. I have discussed the care of this patient with the following independent historian: I have independently interpreted the following test below: I have discussed the management of this patient with the following physician: Discussed with ED provider in detail. Past Medical History Past Medical History: Cancer, CVA/TIA, Hearing Disorder / Deafness, Hyperlipidemia, Hypertension, Memory Impairment, Prostate Disorder, Sleep Apnea/CPAP/BIPAP, Syncope Additional Past Medical History / Comment(s): HX OF COLON POLYPS, HX OF DIVERTICULITUS, TIA UNKNOWN WHEN, HX OF THYROID AND SKIN CANCER, HX OF BPH. Has heart monitor implant. Bilateral hearing aids. History of Any Multi-Drug Resistant Organisms: None Reported Past Surgical History: Bowel Resection, Prostate Surgery Additional Past Surgical History / Comment(s): THYROIDECTOMY, PARATHYROID SURGERY, TRIGGER FINGER SURGERY, NASAL POLYPS REMOVED, TURP, BILATERAL CATARACTS REMOVED, heart monitor implant. Past Anesthesia/Blood Transfusion Reactions: Motion Sickness Past Psychological History: Anxiety, Depression Smoking Status: Former smoker Past Alcohol Use History: Occasional Past Drug Use History: None Reported - Past Family History Mother Family Medical History: Cancer Additional Family Medical History / Comment(s): PANCREATIC CANCER. Brother(s) Family Medical History: Cancer Additional Family Medical History / Comment(s): PROSTATE CANCER. Medications and Allergies Home Medications Medication Instructions Recorded Confirmed Type Aspirin [Adult Low Dose Aspirin EC] 81 mg PO HS 12/09/17 07/06/23 History Fluticasone Nasal [place] [Flonase 1 spr EA NOSTRIL BID 12/09/17 07/06/23 History Nasal [place]] Triamterene/Hydrochlorothiazid 1 tab PO DAILY 12/09/17 07/06/23 History [Triamterene-Hctz 37.5-25 mg Tb] amLODIPine [Norvasc] 5 mg PO HS 12/09/17 07/06/23 History Vit C/E/Zn/Coppr/Lutein/Zeaxan 1 cap PO BID 01/27/18 07/06/23 History [Preservision Areds 2 Softgel] Atorvastatin Calcium [Lipitor] 20 mg PO HS 12/24/19 07/06/23 History Sertraline [Zoloft] 150 mg PO HS 12/24/19 07/06/23 History Levothyroxine Sodium 125 mcg PO DAILY 08/27/21 07/06/23 History buPROPion XL [Wellbutrin XL] 150 mg PO DAILY 12/21/22 07/06/23 History Famotidine [Pepcid] 20 mg PO BID 07/06/23 07/06/23 History Potassium Chloride ER [K-Dur 10] 10 meq PO DAILY 07/06/23 07/06/23 History QUEtiapine [SEROquel] 25 mg PO HS 07/06/23 07/06/23 History atenoloL [Tenormin] 25 mg PO DAILY 07/06/23 07/06/23 History Allergies Allergy/AdvReac Type Severity Reaction Status Date / Time meperidine Allergy Nausea & Verified 07/06/23 17:09 Vomiting clarithromycin [From Biaxin] AdvReac "chest Verified 07/06/23 17:09 pain" Physical Exam Vitals: Vital Signs Temp Pulse Resp BP Pulse Ox 07/06/23 15:05 62 18 134/70 99 07/06/23 13:00 98.2 F 65 16 136/72 99 Intake and Output 07/06/23 07/06/23 07/06/23 06:59 14:59 22:59 Other: Weight 81.647 kg Results CBC & Chem 7: 07/06/23 13:12 07/06/23 13:12 Labs: Abnormal Lab Results - Last 24 Hours (Table) 07/06/23 07/06/23 Range/Units 13:12 13:12 RBC 4.27 L (4.30-5.90) m/uL Neutrophils # 8.0 H (1.3-7.7) k/uL Lymphocytes # 0.9 L (1.0-4.8) k/uL Potassium 3.2 L (3.5-5.1) mmol/L BUN 28 H (9-20) mg/dL Glucose 108 H (74-99) mg/dL
[2023-07-06] MEDS: SODIUM CHLORIDE 0.9% 1,000 ML IV SCH (18:45)
[2023-07-06] MEDS ORDERED: LORazepam 2 MG/ML INJ IV PRN (18:49)
[2023-07-06] MEDS: SERTRALINE 100 MG TAB PO SCH (20:52)
[2023-07-06] MEDS: ATORVASTATIN 20 MG TAB PO SCH (20:54)
[2023-07-06] MEDS: FAMOTIDINE 20 MG TAB PO SCH (20:54)
[2023-07-06] MEDS: amLODIPine 5 MG TAB PO SCH (20:54)
[2023-07-06] MEDS ORDERED: QUEtiapine 25 MG TAB PO SCH (21:00)
[2023-07-07] MEDS ORDERED: LEVOTHYROXINE 125 MCG TAB PO SCH (06:30)
[2023-07-07] MEDS ORDERED: NON FORMULARY DRUG (Triamterene/Hydrochlorothiazid [Triamterene-Hctz 37.5-25 Mg Tb] 1 EACH PO SCH (09:00)
[2023-07-07] MEDS ORDERED: buPROPion XL 150 MG TAB.ER.24H PO SCH (09:00)
[2023-07-07] MEDS: ENOXAPARIN 40 MG/0.4 ML SYRINGE SQ SCH (10:30)
[2023-07-07] MEDS: atenoloL 25 MG TAB PO SCH (10:30)
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
[2023-07-07] MEDS: MEMANTINE 5 MG TAB PO SCH ×2 (13:04→20:10)
[2023-07-07] MEDS: FAMOTIDINE 20 MG TAB PO SCH ×2 (13:23→20:10)
[2023-07-07] MEDS ORDERED: QUEtiapine 25 MG TAB PO PRN (13:34)
--- NOTE | 2023-07-07 13:37 | P.CN ---
Psychiatric Consult - . Consult date: 07/07/23 Consult:: 07/07/23 12:14 IDENTIFYING DATA: This patient is a 82-year-old male, currently and lives with his in a house. He has 2 kids. REASON FOR REFERRAL: Psychiatry was consulted for "hallucinations" HISTORY OF PRESENT ILLNESS: The patient presented to the hospital on 07/06 for reported frequent falls at home, has a hematoma on his head. Patient apparently has a history of dementia. Urinalysis was negative. TSH was elevated T4 was low on routine blood work. Computed tomography scan of the brain did not show any acute changes. Patient was seen today eating his lunch. He was agreeable to have his daughter speak with his field underwriter in the hallway today. She states that patient has a history of dementia which has been progressing, he has been becoming more paranoid and having auditory and visual hallucinations. She states that this has been increasing for the past month or 2. Bracer spoke with patient the bedside. He believed that he was "in my 50s" when asked about his age. He states that he does not know the location he is in. He does not know today's date. He knows his name. When asked about the situation-cole in the hospital he states that "my thinks some knots". He denied any changes in his appetite or sleep. Things that he feels overwhelmed at home and feels sad that he can't do the things he used to do. He claims that it is hard for him to find words to describe his situation . At this time patient denies any suicidal or homical ideations, intent or plan. Patient denies any current auditory, visual hallucinations, however has in the past seeing people in house and having paranoia. Patients admits to using no recreational drugs or cigarettes. Majority of past psychiatric and also social history was given by patient's daughter. PAST PSYCHIATRIC HISTORY: Patient has a a history of depression and dementia. Patient is currently on Wellbutrin, Zoloft, recently started Seroquel about a month ago. Patient denies any previous psychiatric hospitalizations. Patient denies any psychiatric outpatient follow-up. Patient denies any history of suicide attempts in the past. Patient currently follows up with his primary care physician is prescribing his medications and also his neurologist. Past Medical History: Cancer, CVA/TIA, Hearing Disorder / Deafness, Hyperlipidemia, Hypertension, Memory Impairment, Prostate Disorder, Sleep Apnea/CPAP/BIPAP, Syncope Additional Past Medical History / Comment(s): HX OF COLON POLYPS, HX OF DIVERTICULITUS, TIA UNKNOWN WHEN, HX OF THYROID AND SKIN CANCER, HX OF BPH. Has heart monitor implant. Bilateral hearing aids. History of Any Multi-Drug Resistant Organisms: None Reported Past Surgical History: Bowel Resection, Prostate Surgery Additional Past Surgical History / Comment(s): THYROIDECTOMY, PARATHYROID SURGERY, TRIGGER FINGER SURGERY, NASAL POLYPS REMOVED, TURP, BILATERAL CATARACTS REMOVED, heart monitor implant. Past Anesthesia/Blood Transfusion Reactions: Motion Sickness Past Psychological History: Anxiety, Depression Smoking Status: Former smoker Past Alcohol Use History: Occasional Past Drug Use History: None Reported ALLERGIES: as per EMR. CHEMICAL DEPENDENCY HISTORY: as per HPI. FAMILY PSYCHIATRIC/SUBSTANCE USE HISTORY: denies SOCIAL HISTORY: Patient was born and raised in [facility]. States that he completed high school and also college. 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 She has 2 kids, currently lives with his . They live in a condo. Denies any legal history. MENTAL STATUS EXAM: General Appearance: Patient appears to be tall, has several bruises over his forehead, stated age is alert, pleasant, and comes to be cooperative. Patient appears to have fair hygiene and grooming wearing hospital gown with fair eye contact. Behavior: Patient is calmly lying in bed without any agitated behavior. Attempts to cooperate. Speech: Patient's speech is fluent and nonpressured. Hesitant at times. Confabulating. Mood/Affect: Patient reports their mood is "down at times", affect is congruent Suicidality/Homicidality: Patient denies having any suicidal or homicidal ideation intent or plan. Perceptions: Patient denies any visual hallucinations and denies any auditory hallucinations Though content/process: There is no evidence of any delusional thought content and thought process is linear and goal-directed. rambles Memory and concentration: AOX3, grossly intact for the purposes of this session. Can spell "WORLD" backwards Judgment and insight: limited IMPRESSIONS: Psychosis NOS r/o Lewy Body Dementia vs vascular dementia Hx of depressive disorder PLAN: -At this time patient DOES NOT meet criteria for inpatient psychiatric admission. 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 Discontinued Wellbutrin due to the possibility that it might be increasing psychotic symptoms/hallucinations. Increase Seroquel to 37.5 mg daily at bedtime for psychosis/hallucinations/sleep. I added morning dose of Seroquel 12.5 mg +25 mg twice a day when necessary for acute agitation/psychosis. -Communicated plan to patient's nurse -Will continue to follow along -Please contact with any questions. 07/07/23 13:36
[2023-07-07 15:43] LABS: T4, Free (Free Thyroxine) 0.44 ng/dL (0.80-1.80)
--- NOTE | 2023-07-07 17:48 | P.PN ---
Subjective Progress Note Date: 07/07/23 82 year old M with PMH of dementia, hypothyroidism, hypertension, dyslipidemia, history of CVA presents to the ED brought in by his and son. Symptoms rapidly getting worse over the past 2 months. reports patient has auditory and visual hallucinations at night. Wonders out of the house. At times, he is combative. Evaluated by Dr. Flores in the past, previously started on Aricept which did not help. Recently started on Seroquel and titrated up which allowed him to be sedated at night but increased his delirium during the daytime. Has also been having frequent falls from loss of balance. Now feels unsafe to take care of him at home. In the ED he underwent extensive evaluation. CBC RBC count 4.27. CMP K 3.2, BUN 28, glu 108. UA negative. Head and C-spine CT no fracture, no acute intracranial hemorrhage, multilevel DJD. EKG sinus bradycardia with Q waves noted. Knee XR negative. Hip XR negative. 07/07 Patient was seen and examined. No changes in condition. Ammonia 28. B12 508. Folate 17.9. TSH 59.2. FT4 0.44. FT3 1.4. Family agreeable for short stay at SNF preferring [facility]. Neurology recommends EEG and starting Memantine 5 mg PO BID. Psychiatry recommends Seroquel 37.5 mg PO QHS and 12.5 mg PO QD. General: non toxic, no distress, appears at stated age Derm: warm, dry, various bruising in different stages of healing Head: atraumatic, normocephalic, symmetric, left scalp hematoma Eyes: EOMI, no lid lag, anicteric sclera Cardiovascular: good distal perfusion in all 4 extremities Lungs: breathing comfortably, no accessory muscle use Ext: no gross muscle atrophy, no edema, no contractures Neuro: no focal neuro deficits Based on my assessment of this patient, this patient meets a moderate complexity level of care. Patient has an acute diagnosis of worsening dementia with delirium and frequent falls that poses a threat to life or bodily function. Delirium with worsening dementia: Neurology recommends Memantine 5 mg PO BID. Psychiatry recommends Seroquel 37.5 mg PO QHS and 12.5 mg PO QD. Frequent redirection. Fall precautions. Window side bed. Avoid sedative medications. Check B12, Folate, Ammonia normal. Neurology and Psychiatry on board. Hypothyroidism: Increase synthroid to 150 mcg PO QD. Needs outpatient follow up. Frequent falls: PT and OT consult. Fall precautions. Plans for SNF. Hypokalemia: KCl 40 meq PO x 1 ordered. Prerenal azotemia: Hold diuretic. NS at 75 cc/hr. Previous MRI brain done in 01/2022 shows high signal white matter legion in the right parietal lobe consistent with old lacunar infarct or demyelinating disease. CODE STATUS: FULL CODE DVT Prophylaxis: Lovenox SQ GI Prophylaxis: Pepcid Designated medical POA if patient is not able to make medical decisions for themselves: I have reviewed the following netsuite consultant notes: Neuro, Psyc. I have reviewed the results of the following tests: TSH, FT3, FT4, Ammonia, B12, Folate I have ordered the following tests: I have discussed the care of this patient with the following independent historian: Multiple family members at bedside. I have independently interpreted the following test below: I have discussed the management of this patient with the following physician: Discussed with Dr. Slater and Dr. Hinton in detail. Objective - Vital Signs Vital signs: Vital Signs Temp 98.3 F 07/07/23 15:00 Pulse 66 07/07/23 15:00 Resp 14 07/07/23 15:00 BP 123/69 07/07/23 15:00 Pulse Ox 97 07/07/23 15:00 FiO2 Intake & Output 07/06/23 07/07/23 07/07/23 18:59 06:59 18:59 Intake Total 118 Output Total 200 Balance -82 Weight 81.647 kg 81.647 kg Intake: Oral 118 Output: Urine 200 Other: Voiding Method Urinal # Voids 2 - Labs CBC & Chem 7: 07/06/23 13:12 07/06/23 13:12 Labs: Abnormal Lab Results - Last 24 Hours (Table) 07/07/23 07/07/23 Range/Units 02:20 02:20 TSH 59.200 H (0.350-5.500) UIU/ML Free T4 0.44 L (0.80-1.80) ng/dL Free (T4) Reflex I 0.48 L (0.80-1.80) ng/dL Free T3 pg/mL 1.40 L (2.30-4.20) pg/mL
[2023-07-07] MEDS: SODIUM CHLORIDE 0.9% 1,000 ML IV SCH ×2 (19:30→20:56)
[2023-07-07] MEDS: SERTRALINE 100 MG TAB PO SCH (20:09)
[2023-07-07] MEDS: amLODIPine 5 MG TAB PO SCH (20:10)
[2023-07-07] MEDS: ATORVASTATIN 20 MG TAB PO SCH (20:11)
[2023-07-07] MEDS ORDERED: QUEtiapine 25 MG TAB PO SCH (21:00)
[2023-07-07] MEDS ORDERED: LORazepam 2 MG/ML INJ IV STA (22:34)
[2023-07-08] MEDS: LEVOTHYROXINE 75 MCG TAB PO SCH (05:14)
--- NOTE | 2023-07-08 07:22 | EEG ---
ELECTROENCEPHALOGRAM REPORT PREAMBLE: This is an 82-year-old male with dementia. Patient has presented with numerous falls. Patient gets dizzy and 1 time he claimed that he passed out. This study is performed to rule out any seizure activity. EEG FINDINGS: This is a 21-channel digital EEG recorded with video component, utilizing 10/20 international system with referential and bipolar montages. Background consists of somewhat low amplitude background with mixed fast frequency beta, with some theta and occasional delta activity seen in bihemispheric region. Background does not seem to be clearly reactive to eye opening or closing. Photic stimulation was not performed. Different stages of sleep were not seen. No focal or generalized epileptiform activity was seen. Significant myogenic activity was seen in bilateral temporal region frequently during the study. IMPRESSION: This is an abnormal EEG due to somewhat low amplitude background, with mixed fast and slow frequency activity suggestive of generalized cerebral dysfunction as can be seen with encephalopathy of metabolic, vascular, or degenerative causes. No epileptiform activity was seen. MMODL / IJN: [id number] /
[2023-07-08] MEDS ORDERED: QUEtiapine 25 MG TAB PO SCH (09:00)
[2023-07-08] MEDS: SODIUM CHLORIDE 0.9% 1,000 ML IV SCH ×2 (09:48→23:12)
[2023-07-08] MEDS: MEMANTINE 5 MG TAB PO SCH ×2 (09:58→20:15)
[2023-07-08] MEDS: atenoloL 25 MG TAB PO SCH (10:00)
[2023-07-08] MEDS: ENOXAPARIN 40 MG/0.4 ML SYRINGE SQ SCH (10:00)
--- NOTE | 2023-07-08 13:10 | P.PN ---
Subjective Progress Note Date: 07/08/23 82 year old M with PMH of dementia, hypothyroidism, hypertension, dyslipidemia, history of CVA presents to the ED brought in by his and son. Symptoms rapidly getting worse over the past 2 months. reports patient has auditory and visual hallucinations at night. Wonders out of the house. At times, he is combative. Evaluated by Dr. Flores in the past, previously started on Aricept which did not help. Recently started on Seroquel and titrated up which allowed him to be sedated at night but increased his delirium during the daytime. Has also been having frequent falls from loss of balance. Now feels unsafe to take care of him at home. In the ED he underwent extensive evaluation. CBC RBC count 4.27. CMP K 3.2, BUN 28, glu 108. UA negative. Head and C-spine CT no fracture, no acute intracranial hemorrhage, multilevel DJD. EKG sinus bradycardia with Q waves noted. Knee XR negative. Hip XR negative. 07/07 Patient was seen and examined. No changes in condition. Ammonia 28. B12 508. Folate 17.9. TSH 59.2. FT4 0.44. FT3 1.4. Family agreeable for short stay at SNF preferring [facility]. Neurology recommends EEG and starting Memantine 5 mg PO BID. Psychiatry recommends Seroquel 37.5 mg PO QHS and 12.5 mg PO QD. 07/08 Patient was seen and examined. EEG shows no seizure like activity and encep halopathy. Pending insurance authorization for [facility]. General: non toxic, no distress, appears at stated age Derm: warm, dry, various bruising in different stages of healing Head: atraumatic, normocephalic, symmetric, left scalp hematoma Eyes: EOMI, no lid lag, anicteric sclera Cardiovascular: good distal perfusion in all 4 extremities Lungs: breathing comfortably, no accessory muscle use Ext: no gross muscle atrophy, no edema, no contractures Neuro: no focal neuro deficits Based on my assessment of this patient, this patient meets a moderate complexity level of care. Patient has an acute diagnosis of worsening dementia with delirium and frequent falls that poses a threat to life or bodily function. Delirium with worsening dementia: Neurology recommends Memantine 5 mg PO BID. Psychiatry recommends Seroquel 37.5 mg PO QHS and 12.5 mg PO QD. Frequent redirection. Fall precautions. Window side bed. Avoid sedative medications. B12, Folate, Ammonia normal. Neurology and Psychiatry on board. Hypothyroidism: Increase synthroid to 150 mcg PO QD. Needs outpatient follow up. Frequent falls: PT and OT consult. Fall precautions. Plans for SNF. Hypokalemia: KCl 40 meq PO x 1 ordered. Prerenal azotemia: Hold diuretic. NS at 75 cc/hr. Previous MRI brain done in 01/2022 shows high signal white matter legion in the right parietal lobe consistent with old lacunar infarct or demyelinating d isease. CODE STATUS: FULL CODE DVT Prophylaxis: Lovenox SQ GI Prophylaxis: Pepcid Designated medical POA if patient is not able to make medical decisions for themselves: I have reviewed the following sales enablement consultant notes: Neuro, Psyc. I have reviewed the results of the following tests: EEG I have ordered the following tests: I have discussed the care of this patient with the following independent historian: I have independently interpreted the following test below: I have discussed the management of this patient with the following physician: Objective - Vital Signs Vital signs: Vital Signs Temp 98.0 F 07/08/23 07:00 Pulse 71 07/08/23 07:00 Resp 18 07/08/23 07:00 BP 125/69 07/08/23 07:00 Pulse Ox 97 07/08/23 07:00 FiO2 Intake & Output 07/07/23 07/08/23 07/08/23 18:59 06:59 18:59 Intake Total 118 Output Total 200 Balance -82 Weight 81.647 kg Intake: Oral 118 Output: Urine 200 Other: # Voids 3 - Labs CBC & Chem 7: 07/06/23 13:12 07/06/23 13:12 Labs: Abnormal Lab Results - Last 24 Hours (Table) 07/07/23 Range/Units 02:20 Free T4 0.44 L (0.80-1.80) ng/dL Free T3 pg/mL 1.40 L (2.30-4.20) pg/mL
--- NOTE | 2023-07-08 14:20 | P.PN ---
Progress Note - Text Progress Note Date: 07/08/23 Interval history: Patient was seen today for psychiatric follow-up. Patient had his Seroquel in creased last night and morning dose today. Patient's and daughter were at the side today a patient. They state that patient was too sedated and did not eat his breakfast are also his lunch today. They're concerned about his sedation. The did say that he was mildly hallucinating at the TV earlier however is resting comfortably at this time. They claim that he is less agitated not irritable today. Nurse did not offer any other complaints. Patient was seen sleeping comfortably, awoken by group underwriter. He was fairly pleasant, opened his eyes a bit answered some questions appropriately. He knows his correct age, he knows where he is, he does not know today's date. Does not know why he is in the hospital. He appears to be less anxious denies any depression today. Denies any auditory or visual hallucinations. Denies any suicidal or homicidal ideations intent or plan. He claims he does not remember how long he slept last night. MENTAL STATUS EXAM: General Appearance: Patient appears to be tall, has several bruises over his forehead, stated age is ALLERGIC, pleasant, and comes to be cooperative. Patient appears to have fair hygiene and grooming wearing hospital gown Behavior: Patient is calmly lying in bed without any agitated behavior. Attempts to cooperate. Sleepy Speech: Patient's speech is fluent and nonpressured. Confabulating. [place] Mood/Affect: Patient reports their mood is "ok", affect is congruent Suicidality/Homicidality: Patient denies having any suicidal or homicidal ideation intent or plan. Perceptions: Patient denies any visual hallucinations and denies any auditory hallucinations Though content/process: There is no evidence of any delusional thought content. [place] Memory and concentration: AOX2, does not know the correct date today, grossly intact for the purposes of this session Judgment and insight: limited IMPRESSIONS: Psychosis NOS r/o Lewy Body Dementia vs vascular dementia Hx of depressive disorder PLAN: -At this time patient DOES NOT meet criteria for inpatient psychiatric admission. 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 decrease Seroquel to 25 mg daily at bedtime for psychosis/hallucinations/sleep + 6.25 mg daily, with 25 mg bid when necessary for acute agitation/psychosis. added melatonin scheduled 3 mg qhs for sleep -Communicated plan to patient's nurse -Will continue to follow along as needed over the weekend. -Please contact with any questions.
[2023-07-08] MEDS: FAMOTIDINE 20 MG TAB PO SCH (20:15)
[2023-07-08] MEDS: MELATONIN 3 MG TABLET PO SCH (20:15)
[2023-07-08] MEDS: SERTRALINE 100 MG TAB PO SCH (20:15)
[2023-07-08] MEDS: ATORVASTATIN 20 MG TAB PO SCH (20:15)
[2023-07-08] MEDS: QUEtiapine 25 MG TAB PO SCH (20:15)
[2023-07-08] MEDS: amLODIPine 5 MG TAB PO SCH (20:15)
[2023-07-08] MEDS ORDERED: HALOPERIDOL LACTATE 5 MG/ML 1 ML VIAL IM PRN (22:14)
[2023-07-09] MEDS: LEVOTHYROXINE 75 MCG TAB PO SCH (06:22)
[2023-07-09] MEDS ORDERED: QUEtiapine 25 MG TAB PO SCH (09:00)
[2023-07-09] MEDS: MEMANTINE 5 MG TAB PO SCH ×2 (09:54→20:57)
[2023-07-09] MEDS: atenoloL 25 MG TAB PO SCH (09:55)
[2023-07-09] MEDS: ENOXAPARIN 40 MG/0.4 ML SYRINGE SQ SCH (09:55)
[2023-07-09 11:32] LABS: African American GFR (CKD) 68 (>60 ml/min/1.73 sqM); Anion Gap 6 mmol/L; Blood Urea Nitrogen 19 mg/dL (9-20); Calcium 9.2 mg/dL (8.4-10.2); Carbon Dioxide 31 mmol/L (22-30); Chloride 104 mmol/L (98-107); Glucose 117 mg/dL (74-99); Non-African American GFR(CKD) 58 (>60 ml/min/1.73 sqM); Potassium 3.4 mmol/L (3.5-5.1); Sodium 141 mmol/L (137-145)
--- NOTE | 2023-07-09 14:21 | P.PN ---
Subjective Progress Note Date: 07/09/23 82 year old M with PMH of dementia, hypothyroidism, hypertension, dyslipidemia, history of CVA presents to the ED brought in by his and son. Symptoms rapidly getting worse over the past 2 months. reports patient has auditory and visual hallucinations at night. Wonders out of the house. At times, he is combative. Evaluated by Dr. Flores in the past, previously started on Aricept which did not help. Recently started on Seroquel and titrated up which allowed him to be sedated at night but increased his delirium during the daytime. Has also been having frequent falls from loss of balance. Now feels unsafe to take care of him at home. In the ED he underwent extensive evaluation. CBC RBC count 4.27. CMP K 3.2, BUN 28, glu 108. UA negative. Head and C-spine CT no fracture, no acute intracranial hemorrhage, multilevel DJD. EKG sinus bradycardia with Q waves noted. Knee XR negative. Hip XR negative. 07/07 Patient was seen and examined. No changes in condition. Ammonia 28. B12 508. Folate 17.9. TSH 59.2. FT4 0.44. FT3 1.4. Family agreeable for short stay at SNF preferring [facility]. Neurology recommends EEG and starting Memantine 5 mg PO BID. Psychiatry recommends Seroquel 37.5 mg PO QHS and 12.5 mg PO QD. 07/08 Patient was seen and examined. EEG shows no seizure like activity and encep halopathy. Pending insurance authorization for [facility]. 07/09 Patient was seen and examined. Insurance auth obtained but no accepting facility at this time. BMP K 3.4, bicarb 21, glu 117. General: non toxic, no distress, appears at stated age Derm: warm, dry, various bruising in different stages of healing Head: atraumatic, normocephalic, symmetric, left scalp hematoma Eyes: EOMI, no lid lag, anicteric sclera Cardiovascular: good distal perfusion in all 4 extremities Lungs: breathing comfortably, no accessory muscle use Ext: no gross muscle atrophy, no edema, no contractures Neuro: no focal neuro deficits Based on my assessment of this patient, this patient meets a moderate complexity level of care. Patient has an acute diagnosis of worsening dementia with delirium and frequent falls that poses a threat to life or bodily function. Delirium with worsening dementia: Neurology recommends Memantine 5 mg PO BID. Psychiatry recommends Seroquel 37.5 mg PO QHS and 12.5 mg PO QD. Frequent re direction. Fall precautions. Window side bed. Avoid sedative medications. B12, Folate, Ammonia normal. Neurology and Psychiatry on board. Hypothyroidism: Increase synthroid to 150 mcg PO QD. Needs outpatient follow up. Frequent falls: PT and OT consult. Fall precautions. Plans for SNF. Hypokalemia: KCl 40 meq PO x 1 ordered. Prerenal azotemia: Hold diuretic. NS at 75 cc/hr. Previous MRI brain done in 01/2022 shows high signal white matter legion in the right parietal lobe consistent with old lacunar infarct or demyelinating disease. CODE STATUS: FULL CODE DVT Prophylaxis: Lovenox SQ GI Prophylaxis: Pepcid Designated medical POA if patient is not able to make medical decisions for themselves: I have reviewed the following financial operations consultant notes: Neuro, Psyc. I have reviewed the results of the following tests: [facility] I have ordered the following tests: I have discussed the care of this patient with the following independent historian: Discussed with multiple family members and RN. I have independently interpreted the following test below: I have discussed the management of this patient with the following physician: Objective - Vital Signs Vital signs: Vital Signs Temp 98 F 07/09/23 07:00 Pulse 58 L 07/09/23 07:00 Resp 16 07/09/23 07:00 BP 127/64 07/09/23 07:00 Pulse Ox 99 07/09/23 07:00 FiO2 Intake & Output 07/08/23 07/09/23 07/09/23 18:59 06:59 18:59 Intake Total 120 Output Total 225 300 Balance -225 -300 120 Intake: Oral 120 Output: Urine 225 300 Other: Voiding Method Urinal # Voids 1 - Labs CBC & Chem 7: 07/06/23 13:12 07/09/23 10:40 Labs: Abnormal Lab Results - Last 24 Hours (Table) 07/09/23 Range/Units 10:40 Potassium 3.4 L (3.5-5.1) mmol/L Carbon Dioxide 31 H (22-30) mmol/L Glucose 117 H (74-99) mg/dL
[2023-07-09] MEDS: SODIUM CHLORIDE 0.9% 1,000 ML IV SCH (14:40)
[2023-07-09] MEDS ORDERED: OLANZapine ODT 5 MG TAB PO PRN (15:30)
[2023-07-09] MEDS ORDERED: OLANZapine 10 MG VIAL IM PRN (15:32)
--- NOTE | 2023-07-09 15:36 | P.PN ---
Progress Note - Text Progress Note Date: 07/09/23 Interval history: Patient was seen today for psychiatric follow-up. Patient's Seroquel was redu antoni yesterday but he became agitated overnight and required Haldol 2 mg IM last night. He was pleasant on interaction today and calmly lying in bed. He is A&Ox1 to self. He is able to talk about his dementia and comments that his memory is waxing and waning. He endorses anterograde amnesia. Patient's and daughter entered the room as this provider was speaking to the patient. They also noticed that this patient was slightly sedated this morning and were agreeable with reducing the Seroquel dose in the morning. Discussed the black box warning for antipsychotics in use in patients with dementia. Discussed patient care with nurse. Patient is noted to be more alert today than on prior days. She states that he has not been aggressive at all today and appears to be less confused. Denies any auditory or visual hallucinations. Denies any suicidal or homicidal ideation intent or plan. MENTAL STATUS EXAM: General Appearance: Patient appears to be tall, has several bruises over his forehead, appears stated age, is pleasant, and cooperative. Patient appears to have fair hygiene and grooming wearing hospital gown Behavior: Patient is calmly lying in bed without any agitated behavior. Attempts to cooperate. Somnolent Speech: Patient's speech is muttered and nonpressured. Mood/Affect: Patient reports their mood is "ok", affect is congruent Suicidality/Homicidality: Patient denies having any suicidal or homicidal ideation intent or plan. Perceptions: Patient denies any visual hallucinations and denies any auditory hallucinations Though content/process: There is no evidence of any delusional thought content. [place]. Confabulations Memory and concentration: A&OX1, fair concentration to interview but decreased overall Judgment and insight: limited IMPRESSIONS: Delirium, acute, resolving Major Neurocognitive Disorder, likely vascular etiology - unlikely to be Lewy Body since appears to be responding well to antipsychotics; unlikely to be Parkinson's due to lack of hx of Parkinson's disease/motor symptoms prior to onset of cognitive decline Hx of depressive disorder PLAN: -At this time patient DOES NOT meet criteria for inpatient psychiatric admissi on. 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 Decrease Seroquel from 6.25 qAM and 25 mg qHS to only 25 mg qHS for hallucinations/sleep - Change Seroquel PRN to Zyprexa IM/PO Zydis 2.5 mg BID PRN for agitation (lower risk of QTc prolongation compared to Haldol) - Discussed BBW of antipsychotics with both his and daughter - increase risk of mortality in elderly patients with dementia - Continue melatonin scheduled 3 mg qhs for sleep - Discussed with family possible disposition following rehab including custodial or [facility] care facility. Family to consider, with help from SW and hospitalist -Communicated plan to patient's nurse. Family express understanding and amenable to the above plan. -Will continue to follow along as needed over the weekend. -Please contact with any questions.
[2023-07-09] MEDS: SERTRALINE 100 MG TAB PO SCH (20:56)
[2023-07-09] MEDS: QUEtiapine 25 MG TAB PO SCH (20:57)
[2023-07-09] MEDS: FAMOTIDINE 20 MG TAB PO SCH (20:57)
[2023-07-09] MEDS: ATORVASTATIN 20 MG TAB PO SCH (20:57)
[2023-07-09] MEDS: MELATONIN 3 MG TABLET PO SCH (20:57)
[2023-07-09] MEDS: amLODIPine 5 MG TAB PO SCH (20:57)
[2023-07-10] MEDS: SODIUM CHLORIDE 0.9% 1,000 ML IV SCH ×2 (03:29→16:54)
[2023-07-10] MEDS: LEVOTHYROXINE 75 MCG TAB PO SCH (05:10)
[2023-07-10] MEDS: ENOXAPARIN 40 MG/0.4 ML SYRINGE SQ SCH (10:18)
[2023-07-10] MEDS: MEMANTINE 5 MG TAB PO SCH ×2 (10:18→20:48)
[2023-07-10] MEDS: atenoloL 25 MG TAB PO SCH (10:18)
--- NOTE | 2023-07-10 14:05 | P.PN ---
Subjective Progress Note Date: 07/10/23 82 year old M with PMH of dementia, hypothyroidism, hypertension, dyslipidemia, history of CVA presents to the ED brought in by his and son. Symptoms rapidly getting worse over the past 2 months. reports patient has auditory and visual hallucinations at night. Wonders out of the house. At times, he is combative. Evaluated by Dr. Flores in the past, previously started on Aricept which did not help. Recently started on Seroquel and titrated up which allowed him to be sedated at night but increased his delirium during the daytime. Has also been having frequent falls from loss of balance. Now feels unsafe to take care of him at home. In the ED he underwent extensive evaluation. CBC RBC count 4.27. CMP K 3.2, BUN 28, glu 108. UA negative. Head and C-spine CT no fracture, no acute intracranial hemorrhage, multilevel DJD. EKG sinus bradycardia with Q waves noted. Knee XR negative. Hip XR negative. 07/07 Ammonia 28. B12 508. Folate 17.9. TSH 59.2. FT4 0.44. FT3 1.4. Family agreeable for short stay at SNF preferring [facility]. Neurology recommends EEG and starting Memantine 5 mg PO BID. Psychiatry recommends Seroquel 37.5 mg PO QHS and 12.5 mg PO QD. 07/08 EEG shows no seizure like activity and encephalopathy. Pending insurance authorization for [facility]. 07/09 Insurance auth obtained but no accepting facility at this time. 07/10 Patient was seen and examined. Daughter at bedside. Did well overnight. Psych has decreased the patient's Seroquel dose to 25 mg PO QHS and added Zyprexa 2.5 mg PO BID. Continued on Sertraline and Melatonin. Insurance auth obtained but no accepting facility at this time. General: non toxic, no distress, appears at stated age Derm: warm, dry, various bruising in different stages of healing Head: atraumatic, normocephalic, symmetric, left scalp hematoma Eyes: EOMI, no lid lag, anicteric sclera Cardiovascular: good distal perfusion in all 4 extremities Lungs: breathing comfortably, no accessory muscle use Ext: no gross muscle atrophy, no edema, no contractures Neuro: no focal neuro deficits Based on my assessment of this patient, this patient meets a moderate complexity level of care. Patient has an acute diagnosis of worsening dementia with delirium and frequent falls that poses a threat to life or bodily function. Delirium with worsening dementia: Neurology recommends Memantine 5 mg PO BID. Psychiatry recommends reducing Seroquel dose to 25 mg PO QHS and added Zyprexa 2.5 mg PO BID. Frequent redirection. Fall precautions. Window side bed. Avoid sedative medications. B12, Folate, Ammonia normal. Neurology and Psychiatry on board. Hypothyroidism: Increased synthroid to 150 mcg PO QD. Needs outpatient follow up. Frequent falls: PT and OT consult. Fall precautions. Plans for SNF. Hypokalemia: KCl 40 meq PO x 1 ordered. Prerenal azotemia: Hold diuretic. NS at 75 cc/hr. Previous MRI brain done in 01/2022 shows high signal white matter legion in the right parietal lobe consistent with old lacunar infarct or demyelinating disease. CODE STATUS: FULL CODE DVT Prophylaxis: Lovenox SQ GI Prophylaxis: Pepcid Designated medical POA if patient is not able to make medical decisions for themselves: I have reviewed the following teamcenter consultant notes: Psyc note. I have reviewed the results of the following tests: I have ordered the following tests: I have discussed the care of this patient with the following independent historian: Discussed with daughter and RN. I have independently interpreted the following test below: I have discussed the management of this patient with the following physician: Objective - Vital Signs Vital signs: Vital Signs Temp 98.0 F 07/10/23 07:00 Pulse 58 L 07/10/23 07:00 Resp 16 07/10/23 07:00 BP 125/71 07/10/23 07:00 Pulse Ox 98 07/10/23 07:00 FiO2 Intake & Output 07/09/23 07/10/23 07/10/23 18:59 06:59 18:59 Intake Total 120 240 Output Total 350 Balance 120 -350 240 Intake: Oral 120 240 Output: Urine 350 Other: Voiding Method Urinal # Voids 1 - Labs CBC & Chem 7: 07/06/23 13:12 07/09/23 10:40 Labs: Abnormal Lab Results - Last 24 Hours (Table) 07/09/23 Range/Units 10:40 Potassium 3.4 L (3.5-5.1) mmol/L Carbon Dioxide 31 H (22-30) mmol/L Glucose 117 H (74-99) mg/dL
--- NOTE | 2023-07-10 16:10 | P.PN ---
Progress Note - Text Progress Note Date: 07/10/23 Interval history: Patient was seen today for psychiatric follow-up. Patient is calm and he is s eated upright next to his this afternoon. He makes numerous jokes but is noted to have confabulations when answering questions. He says he is doing "good "and that he really likes this hospital. Patient is A and O 1 to self. He has been eating well today and slept well last night. Patient denies feeling paranoid or unsafe. states that she has noticed him to be improving significantly and denies any other concerns. However, his and the nurse states that the patient had some visual hallucinations last night but that he was not becoming agitated over them. Discussed patient care with nurse. Patient is noted to be more alert today than on prior days. She states that he has not been aggressive at all and appears to be more responsive and much less confused. Denies any auditory or visual hallucinations. Denies any suicidal or homicidal ideation intent or plan. MENTAL STATUS EXAM: General Appearance: Patient appears to be tall, has several bruises over his forehead, appears stated age, is pleasant, and cooperative. Patient appears to have fair hygiene and grooming wearing hospital gown Behavior: Patient is calmly lying in bed without any agitated behavior. Att empts to cooperate. Speech: Patient's speech is muttered and nonpressured. Mood/Affect: Patient reports their mood is "good", affect is congruent Suicidality/Homicidality: Patient denies having any suicidal or homicidal ideation intent or plan. Perceptions: Patient denies any visual hallucinations and denies any auditory hallucinations Though content/process: There is no evidence of any delusional thought content. [place] Memory and concentration: A&OX1, fair concentration to interview but decreased overall Judgment and insight: limited IMPRESSIONS: Delirium, acute, resolving Major Neurocognitive Disorder, likely vascular etiology - unlikely to be Lewy Body since appears to be responding well to antipsychotics; unlikely to be Parkinson's due to lack of hx of Parkinson's disease/motor symptoms prior to onset of cognitive decline Hx of depressive disorder PLAN: -At this time patient DOES NOT meet criteria for inpatient psychiatric admission. 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 Increase Seroquel to 37.5 mg qHS for hallucinations/sleep - Zyprexa IM/PO Zydis 2.5 mg BID PRN for agitation (lower risk of QTc prolongation compared to Haldol) - Discussed BBW of antipsychotics with both his and daughter - increase risk of mortality in elderly patients with dementia - Continue melatonin scheduled 3 mg qhs for sleep - Discussed with family possible disposition following rehab including [facility] or correction care facility. Family to consider, with help from SW and hospitalist -Communicated plan to patient's nurse. Family express understanding and amenable to the above plan. -Psychiatry will sign off. Please call if there are any concerns -Please contact with any questions.
[2023-07-10] MEDS: SERTRALINE 100 MG TAB PO SCH (20:48)
[2023-07-10] MEDS: ATORVASTATIN 20 MG TAB PO SCH (20:48)
[2023-07-10] MEDS: amLODIPine 5 MG TAB PO SCH (20:48)
[2023-07-10] MEDS: FAMOTIDINE 20 MG TAB PO SCH (20:48)
[2023-07-10] MEDS: MELATONIN 3 MG TABLET PO SCH (20:48)
[2023-07-10] MEDS: QUEtiapine 25 MG TAB PO SCH (20:49)
[2023-07-11] MEDS: SODIUM CHLORIDE 0.9% 1,000 ML IV SCH (05:51)
[2023-07-11] MEDS: LEVOTHYROXINE 75 MCG TAB PO SCH (06:05)
[2023-07-11] MEDS: atenoloL 25 MG TAB PO SCH (08:46)
[2023-07-11] MEDS: ENOXAPARIN 40 MG/0.4 ML SYRINGE SQ SCH (08:47)
[2023-07-11] MEDS: MEMANTINE 5 MG TAB PO SCH ×2 (08:47→20:16)
[2023-07-11] MEDS: ACETAMINOPHEN TAB 325 MG TAB PO PRN ×2 (12:40→20:00)
--- NOTE | 2023-07-11 15:56 | P.PN ---
Subjective Progress Note Date: 07/11/23 Pt lost IV access again last night. He is eating 95% of his meals and able to ambulate to bathroom without assistance. Gen: awake, alert HEENT: normocephalic, atraumatic, good hearing acuity, moist mucous membranes Resp: good air exchange, breathing comfortably with no accessory muscle use CVS: good distal perfusion x 4, GI: soft, NTTP, ND : no SPT, no CVAT, walls catheter not present MSK: no pitting edema, no clubbing Neuro: non-focal, moving all extremities Hospital Course: 82 year old M with PMH of dementia, hypothyroidism, hypertension, dyslipidemia, history of CVA presents to the ED brought in by his and son. In the ED he underwent extensive evaluation. CBC RBC count 4.27. CMP K 3.2, BUN 28, glu 108. UA negative. Head and C-spine CT no fracture, no acute intracranial hemorrhage, multilevel DJD. EKG sinus bradycardia with Q waves noted. Knee XR negative. Hip XR negative. 07/07 Ammonia 28. B12 508. Folate 17.9. TSH 59.2. FT4 0.44. FT3 1.4. Family agreeable for short stay at SNF preferring [facility]. Neurology recommends EEG and starting Memantine 5 mg PO BID. Psychiatry recommends Seroquel 37.5 mg PO QHS and 12.5 mg PO QD. 07/08 EEG shows no seizure like activity and encephalopathy. Pending insurance authorization for [facility]. 07/09 Insurance auth obtained but no accepting facility at this time. 07/10 Patient was seen and examined. Daughter at bedside. Did well overnight. Psych has decreased the patient's Seroquel dose to 25 mg PO QHS and added Zyprexa 2.5 mg PO BID. Continued on Sertraline and Melatonin. Insurance auth obtained but no accepting facility at this time. Assessment/Plan: Delirium with worsening dementia: - Neurology recommends Memantine 5 mg PO BID. - Psychiatry recommends reducing Seroquel dose to 25 mg PO QHS and added Zyprexa 2.5 mg PO BID. - Frequent redirection. Fall precautions. Window side bed. Avoid sedative medications. - B12, Folate, Ammonia normal. Neurology and Psychiatry on board. - Avoid extra lines that will exacerbate delirium such as IVs, foleys, etc. Hypothyroidism: Increased synthroid to 150 mcg PO QD. Needs outpatient follow up. Frequent falls: PT and OT consult. Fall precautions. Plans for SNF. Hypokalemia: KCl 40 meq PO x 1 ordered. Prerenal azotemia: Hold diuretic. NS at 75 cc/hr. Previous MRI brain done in 01/2022 shows high signal white matter legion in the right parietal lobe consistent with old lacunar infarct or demyelinating disease. CODE STATUS: FULL CODE DVT Prophylaxis: Lovenox SQ GI Prophylaxis: Pepcid Designated medical POA if patient is not able to make medical decisions for themselves: Objective - Vital Signs Vital signs: Vital Signs Temp 97.5 F L 07/11/23 15:00 Pulse 67 07/11/23 15:00 Resp 16 07/11/23 15:00 BP 123/58 07/11/23 15:00 Pulse Ox 98 07/11/23 15:00 FiO2 Intake & Output 07/10/23 07/11/23 07/11/23 18:59 06:59 18:59 Intake Total 360 236 Output Total 300 Balance 360 -300 236 Intake: Oral 360 236 Output: Urine 300 Other: Voiding Method Urinal Urinal # Voids 2 2 2 # Bowel Movements 0 2 - Labs CBC & Chem 7: 07/06/23 13:12 07/09/23 10:40
[2023-07-11] MEDS: QUEtiapine 25 MG TAB PO SCH (19:59)
[2023-07-11] MEDS: MELATONIN 3 MG TABLET PO SCH (20:00)
[2023-07-11] MEDS: ATORVASTATIN 20 MG TAB PO SCH (20:00)
[2023-07-11] MEDS: FAMOTIDINE 20 MG TAB PO SCH (20:00)
[2023-07-11] MEDS: amLODIPine 5 MG TAB PO SCH (20:00)
[2023-07-11] MEDS: SERTRALINE 100 MG TAB PO SCH (20:16)
[2023-07-12] MEDS: LEVOTHYROXINE 75 MCG TAB PO SCH (06:14)
[2023-07-12] MEDS: ENOXAPARIN 40 MG/0.4 ML SYRINGE SQ SCH (08:51)
[2023-07-12] MEDS: MEMANTINE 5 MG TAB PO SCH (08:51)
[2023-07-12] MEDS: atenoloL 25 MG TAB PO SCH (08:51)
[2023-07-12 09:27] VITALS: BP 142/78; PULSE 66; RESP 17; TEMP 97.5
--- NOTE | 2023-07-12 10:56 | P.DS ---
Providers Date of admission: 07/06/23 16:39 Expected date of discharge: 07/12/23 Attending physician: Paulina Llamas MD Consults: 07/06/23 16:39 Consult Physician Routine Consulting Provider: Colin Slater Consult Reason/Comments: hallucination Do you want consulting provider notified?: Yes Consult Physician Routine Consulting Provider: Azul Hinton Consult Reason/Comments: ams Do you want consulting provider notified?: Yes Primary care physician: Sidney Haynes MD Hospital Course: Discharge Diagnosis: Delirium with worsening dementia Hypothyroidism Frequent falls Hypokalemia Prerenal azotemia Hypertension Hospital Course: 82 year old M with PMH of dementia, hypothyroidism, hypertension, dyslipidemia, history of CVA presents to the ED brought in by his and son with concerns of worsening mentation. Reportedly, patient has been having more auditory and visual hallucinations at night, often combative. He was evaluated by neurologist outpatient, likely has worsening dementia. Also has been having increased falls at home. Family unable to take care of him at home. In the ED, vital signs have been within normal limits. Potassium 3.2, and urine analysis negative, head and C-spine CT showed no acute process or fractures, EKG shows sinus bradycardia, negative knee and hip x-rays. TSH 59.2, free T4 0.44. Patient evaluated by neurology, started on memantine, also evaluated by psychiatry, increased quetiapine. EEG did not show any epileptiform discharges. Patient being discharged to SNF. Patient seen and examined at bedside. Vital signs reviewed and stable. General: nontoxic, no distress, appears at stated age Derm: warm, dry Head: Left periorbital ecchymosis, normocephalic, symmetric Eyes: EOMI, no lid lag, anicteric sclera Mouth: no lip lesion, mucus membranes moist Cardiovascular: S1S2 reg, systolic murmur Lungs: CTA bilateral, no rhonchi, no rales , no accessory muscle use Abdominal: soft, nontender to palpation, no guarding, no appreciable organomegaly Ext: no gross muscle atrophy, no edema, no contractures Neuro: CN II-XI grossly intact, no focal neuro deficits Psych: Alert, oriented 1, appropriate affect A total of 33 minutes of time were spent preparing this complex discharge summary. Patient was discharged on 07/12/23 at 9:12. Patient Condition at Discharge: Stable Plan - Discharge Summary Discharge Rx Participant: No New Discharge Prescriptions: New Melatonin 3 mg PO HS tab Memantine [Namenda] 5 mg PO BID tab QUEtiapine [SEROquel] 37.5 mg PO HS tab Acetaminophen Tab [Tylenol] 650 mg PO Q6HR PRN tab PRN Reason: Fever And/ Or Pain Continue amLODIPine [Norvasc] 5 mg PO HS Fluticasone Nasal Boyds [Flonase Nasal Boyds] 1 spr EA NOSTRIL BID Vit C/E/Zn/Coppr/Lutein/Zeaxan [Preservision Areds 2 Softgel] 1 cap PO BID Atorvastatin Calcium [Lipitor] 20 mg PO HS Sertraline [Zoloft] 150 mg PO HS Levothyroxine Sodium 125 mcg PO DAILY atenoloL [Tenormin] 25 mg PO DAILY Famotidine [Pepcid] 20 mg PO BID Discontinued Triamterene/Hydrochlorothiazid [Triamterene-Hctz 37.5-25 mg Tb] 1 tab PO DAILY Aspirin [Adult Low Dose Aspirin EC] 81 mg PO HS buPROPion XL [Wellbutrin XL] 150 mg PO DAILY QUEtiapine [SEROquel] 25 mg PO HS Potassium Chloride ER [K-Dur 10] 10 meq PO DAILY Discharge Medication List Fluticasone Nasal Boyds [Flonase Nasal Boyds] 1 spr EA NOSTRIL BID 12/09/17 [History] amLODIPine [Norvasc] 5 mg PO HS 12/09/17 [History] Vit C/E/Zn/Coppr/Lutein/Zeaxan [Preservision Areds 2 Softgel] 1 cap PO BID 01/27/18 [History] Atorvastatin Calcium [Lipitor] 20 mg PO HS 12/24/19 [History] Sertraline [Zoloft] 150 mg PO HS 12/24/19 [History] Levothyroxine Sodium 125 mcg PO DAILY 08/27/21 [History] Famotidine [Pepcid] 20 mg PO BID 07/06/23 [History] atenoloL [Tenormin] 25 mg PO DAILY 07/06/23 [History] Acetaminophen Tab [Tylenol] 650 mg PO Q6HR PRN tab 07/12/23 [Rx] Melatonin 3 mg PO HS tab 07/12/23 [Rx] Memantine [Namenda] 5 mg PO BID tab 07/12/23 [Rx] QUEtiapine [SEROquel] 37.5 mg PO HS tab 07/12/23 [Rx] Follow up Appointment(s)/Referral(s): [facility], [NON-STAFF] - Sidney Haynes MD [Primary Care Provider] - 1-2 days Patient Instructions/Handouts: Dementia (GEN) Activity/Diet/Wound Care/Special Instructions: Please see your PCP. Discharge Disposition: TRANSFER TO SNF/ECF
== END 2023-07-12 14:43 ==
LOC: EC 12:48 → 6NMEDSUR 16:39
PROVIDERS: ADMIT Family Medicine; ATTEND Family Medicine
DX: F03.90 Unspecified dementia, unspecified severity, without behavioral disturbance, psychotic disturbance, mood disturbance, and anxiety (principal); F05 Delirium due to known physiological condition; S00.03XA Contusion of scalp, initial encounter; S00.81XA Abrasion of other part of head, initial encounter; S80.211A Abrasion, right knee, initial encounter; W19.XXXA Unspecified fall, initial encounter; E87.6 Hypokalemia; R79.89 Other specified abnormal findings of blood chemistry; R29.6 Repeated falls; H91.93 Unspecified hearing loss, bilateral; F32.A Depression, unspecified; E78.5 Hyperlipidemia, unspecified; I10 Essential (primary) hypertension; G47.30 Sleep apnea, unspecified; N40.0 Benign prostatic hyperplasia without lower urinary tract symptoms; F41.9 Anxiety disorder, unspecified; M48.061 Spinal stenosis, lumbar region without neurogenic claudication; E89.0 Postprocedural hypothyroidism; Z85.828 Personal history of other malignant neoplasm of skin; Z85.850 Personal history of malignant neoplasm of thyroid; Z86.73 Personal history of transient ischemic attack (TIA), and cerebral infarction without residual deficits; Z87.891 Personal history of nicotine dependence; Z79.82 Long term (current) use of aspirin; Z79.899 Other long term (current) drug therapy; Z79.890 Hormone replacement therapy; Z88.1 Allergy status to other antibiotic agents
CPT/HCPCS: 96361 ×2; 96372 ×7; 96374; 99285; 36415; 95816; 93005; 97530; 97162; 97535 ×2; 97166; 84439; 84481; 80053; 80048; 84443; 82607; 82140; 82746; 83735; 85025; 81003; 73502; 73564; 72125; 70450; G0378 ×7; J2060 ×2; J1630; J1650 ×6; 96376

== ENCOUNTER 2023-07-15 17:45 | Observation (INO) | payer MEDICARE ==
--- NOTE | 2023-07-15 18:22 | ED ---
General Adult HPI - General Source: patient, family, EMS, RN notes reviewed Mode of arrival: EMS Limitations: altered mental status <Brandon Crawford - Last Filed: 07/15/23 21:00> <Juan Burnham - Last Filed: 07/16/23 05:25> <Deion Franco - Last Filed: 07/16/23 17:07> - General Chief complaint: Altered Mental Status Stated complaint: MENTAL HEALTH Time Seen by Provider: 07/15/23 17:47 - History of Present Illness Initial comments: Patient is a pleasant 82-year-old male presenting to the emergency department wi th family with concerns for agitation. Patient does have history of Lewy body dementia. Patient was in the hospital recently with recent falls. Patient was discharged to detention a couple of days ago. Patient was not sleeping there. Patient became more agitated, especially tonight. Patient was throwing things at staff. Patient did refuse medications. Patient is frequently speaking nonsensical (Brandon Crawford) - Related Data Home Medications Medication Instructions Recorded Confirmed Fluticasone Nasal [place] [Flonase 1 spr EA NOSTRIL BID 12/09/17 07/15/23 Nasal [place]] amLODIPine [Norvasc] 5 mg PO HS 12/09/17 07/15/23 Vit C/E/Zn/Coppr/Lutein/Zeaxan 1 cap PO BID 01/27/18 07/15/23 [Preservision Areds 2 Softgel] Atorvastatin Calcium [Lipitor] 20 mg PO HS 12/24/19 07/15/23 Levothyroxine Sodium 125 mcg PO DAILY 08/27/21 07/15/23 Famotidine [Pepcid] 20 mg PO BID 07/06/23 07/15/23 atenoloL [Tenormin] 25 mg PO DAILY 07/06/23 07/15/23 Acetaminophen [Tylenol 8 Hour] 650 mg PO Q6H 07/15/23 07/15/23 OLANZapine [ZyPREXA] 2.5 mg PO HS 07/15/23 07/15/23 QUEtiapine [SEROquel] 37.5 mg PO HS 07/15/23 07/15/23 Sertraline HCl 150 mg PO HS 07/15/23 07/15/23 polyethylene glycoL 3350 [Miralax] 17 gm PO DAILY 07/15/23 07/15/23 Previous Rx's Medication Instructions Recorded Acetaminophen Tab [Tylenol] 650 mg PO Q6HR PRN tab 07/12/23 Melatonin 3 mg PO HS tab 07/12/23 Memantine [Namenda] 5 mg PO BID tab 07/12/23 Allergies Allergy/AdvReac Type Severity Reaction Status Date / Time meperidine Allergy Nausea & Verified 07/15/23 19:17 Vomiting clarithromycin [From Biaxin] AdvReac "chest Verified 07/15/23 19:17 pain" Review of Systems ROS Other: All systems not noted in ROS Statement are negative. Constitutional: Denies: fever Eyes: Denies: eye pain ENT: Denies: ear pain Respiratory: Denies: cough Neurological: Reports: as per HPI, confusion <Brandon Crawford - Last Filed: 07/15/23 21:00> ROS Other: All systems not noted in ROS Statement are negative. <Juan Burnham - Last Filed: 07/16/23 05:25> ROS Other: All systems not noted in ROS Statement are negative. <Deion Franco - Last Filed: 07/16/23 17:07> ROS Statement: Those systems with pertinent positive or pertinent negative responses have been documented in the HPI. Past Medical History Past Medical History: Cancer, CVA/TIA, Dementia, Hearing Disorder / Deafness, Hyperlipidemia, Hypertension, Memory Impairment, Prostate Disorder, Syncope Additional Past Medical History / Comment(s): HX OF COLON POLYPS, HX OF DIVERTICULITUS, TIA UNKNOWN WHEN, HX OF THYROID AND SKIN CANCER, HX OF BPH. Has heart monitor implant. Bilateral hearing aids. History of Any Multi-Drug Resistant Organisms: None Reported Past Surgical History: Bowel Resection, Prostate Surgery Additional Past Surgical History / Comment(s): THYROIDECTOMY, PARATHYROID SURGERY, TRIGGER FINGER SURGERY, NASAL POLYPS REMOVED, TURP, BILATERAL CATARACTS REMOVED, heart monitor implant. Past Anesthesia/Blood Transfusion Reactions: Motion Sickness Past Psychological History: Anxiety, Depression Smoking Status: Former smoker Past Alcohol Use History: Occasional Past Drug Use History: None Reported - Past Family History Mother Family Medical History: Cancer Additional Family Medical History / Comment(s): PANCREATIC CANCER. Brother(s) Family Medical History: Cancer Additional Family Medical History / Comment(s): PROSTATE CANCER. <Brandon Crawford - Last Filed: 07/15/23 21:00> General Exam Limitations: altered mental status General appearance: alert, in no apparent distress Head exam: Present: other (Left forehead soft tissue swelling with left periorbital ecchymosis) Eye exam: Present: normal appearance, PERRL, EOMI ENT exam: Present: normal oropharynx Neck exam: Present: normal inspection. Absent: tenderness Respiratory exam: Present: normal lung sounds bilaterally Cardiovascular Exam: Present: regular rate, normal rhythm GI/Abdominal exam: Present: soft. Absent: tenderness Extremities exam: Present: normal inspection Neurological exam: Present: alert, CN II-XII intact. Absent: motor sensory deficit Expanded Neurological exam: Present: protecting the airway, other (Nonsensical speech.) Patient oriented to: Present: person. Absent: place, time Cranial nerves: EOM's Intact: Normal Motor strength exam: RUE: 5, LUE: 5, RLE: 5, LLE: 5 Psychiatric exam: Present: normal affect, normal mood Skin exam: Present: normal color <Brandon Crawford - Last Filed: 07/15/23 21:00> Course Vital Signs 07/15/23 07/15/23 07/16/23 17:47 20:26 06:30 Temperature 98.0 F 98.2 F Pulse Rate 68 71 92 Respiratory 14 20 20 Rate Blood Pressure 168/85 132/77 142/82 O2 Sat by Pulse 99 100 99 Oximetry 07/16/23 07/16/23 07/16/23 10:39 11:32 14:00 Temperature Pulse Rate 80 62 50 L Respiratory 18 Rate Blood Pressure 100/48 93/76 120/55 O2 Sat by Pulse 85 L 93 L 97 Oximetry EKG Findings - EKG Results: EKG: interpreted by ERMD (Left axis. Septal Q waves with borderline ST changes in V2. Previous EKG dated July 06 with similar findings.), sinus rhythm EKG shows: bradycardia <Brandon Crawford Filed: 07/15/23 21:00> Procedures - Restraint - Face to Face Restraint Occurrence 1 Patient's Immediate Situation: Endangers self safety Patient's Reaction to the Intervention: Uncooperative, Bizarre, Restless Patient's Medical & Behavioral Condition: Agitated, Bizarre behavior Need to Continue or Terminate Restraint or Seclusion: Continue Face to Face Eval of Restraint Date: 07/16/23 Face to Face Eval of Restraint Time: 02:40 <DukeJuan brown - Last Filed: 07/16/23 05:25> Medical Decision Making - Lab Data Result diagrams: 07/15/23 19:00 07/15/23 19:00 <Brandon Crawford - Last Filed: 07/15/23 21:00> - Lab Data Result diagrams: 07/15/23 19:00 07/15/23 19:00 <Juan Burnham - Last Filed: 07/16/23 05:25> - Lab Data Result diagrams: 07/15/23 19:00 07/15/23 19:00 <Deion Franco - Last Filed: 07/16/23 17:07> - Medical Decision Making Was pt. sent in by a medical professional or institution (Dr. PA, MASTER OCEAN, urgent care, hospital, or detention...) When possible be specific @ -No Did you speak to anyone other than the patient for history (EMS, parent, family, police, friend...)? What history was obtained from this source @ -Family provides history as patient has nonsensical speech. Did you review nursing and triage notes (agree or disagree)? Why? @ -I reviewed and agree with nursing and triage notes Were old charts reviewed (outside hosp., previous admission, EMS record, old EKG, old radiological studies, urgent care reports/EKG's, detention records)? Report findings @ -Previous admission and EKG reviewed Differential Diagnosis (chest pain, altered mental status, abdominal pain women, abdominal pain men, vaginal bleeding, weakness, fever, dyspnea, syncope, headache, dizziness, GI bleed, back pain, seizure, CVA, palpatations, mental health, musculoskeletal)? @ -Differential Mental Health Depression, anxiety, bipolar, psychosis, schizophrenia, borderline personality, situational depression, adjustment disorder, behavioral disorder, brain tumor, malingering, substance abuse, encephalopathy, medication reaction, dementia, hypothyroidism, degenerative neurologic disorder, lupus.... This is not meant to be all-inclusive list EKG interpreted by me (3pts min.). @ -As above X-rays interpreted by me (1pt min.). @ -Chest x-ray shows no acute process computed tomography scan of the brain shows soft tissue swelling of the scalp. No acute intercranial hemorrhage. CT interpreted by me (1pt min.). @ -None done U/S interpreted by me (1pt. min.). @ -None done What testing was considered but not performed or refused? (CT, X-rays, U/S, labs)? Why? @ -None What meds were considered but not given or refused? Why? @ -None Did you discuss the management of the patient with other professionals (professionals i.e. DrMariel, PA, MASTER OCEAN, lab, RT, psych nurse, high school social studies teacher, insulation technician, teacher, health officer, manager case)? Give summary @ -No Was smoking cessation discussed for >3mins.? @ -No Was critical care preformed (if so, how long)? @ -No Were there social determinants of health that impacted care today? How? (Homelessness, low income, unemployed, alcoholism, drug addiction, transportation, low edu. Level, literacy, decrease access to med. care, alf, rehab)? @ -No Was there de-escalation of care discussed even if they declined (Discuss DNR or withdrawal of care, Hospice)? DNR status @ -No What co-morbidities impacted this encounter? (DM, HTN, Smoking, COPD, CAD, Cancer, CVA, ARF, Chemo, Hep., AIDS, mental health diagnosis, sleep apnea, morbid obesity)? @ -None Was patient admitted / discharged? Hospital course, mention meds given and route, prescriptions, significant lab abnormalities, going to OR and other pertinent info. @ -Medical evaluation without acute abnormality. Patient will be cleared for psychiatric evaluation. Undiagnosed new problem with uncertain prognosis? @ -No Drug Therapy requiring intensive monitoring for toxicity (Heparin, Nitro, Insulin, Cardizem)? @ -No Were any procedures done? @ -No Diagnosis/symptom? @ -Agitation Acute, or Chronic, or Acute on Chronic? @ -Acute Uncomplicated (without systemic symptoms) or Complicated (systemic symptoms)? @ -default Side effects of treatment? @ -No Exacerbation, Progression, or Severe Exacerbation? @ -No Poses a threat to life or bodily function? How? (Chest pain, [place], [place], pneumonia, PE, COPD, DKA, ARF, appy, cholecystitis, CVA, Diverticulitis, Homicidal, Suicidal, threat to staff... and all critical care pts) @ -No (Brandon Crawford) Patient was pending evaluation here in the emergency department overnight by EPS. EPS evaluated the patient and as he was sedated at that time, with the history provided by family they recommended medicine admission for evaluation. Patient is not appropriate for psychiatric admission. Briefly patient does have a history of dementia, agitation, which seems to be progressing. Was recently here for falls and worsening dementia. Discharge back to his detention however he was sent here for worsening agitation his detention. Patient's been holding him in the ER for over 20 hours at this point. He did require res traints last night per nursing staff as well as multiple doses of Ativan. Patient is still sedated. Family at bedside and provides most of the history. Discussed with them and at this time as patient is been pending eval by psych for over 20 hours and they still have not evaluated him however I do agree that this is likely related to his dementia possibly medications, patient will be admitted as medicine on observation admission for altered mental status. They were in agreement this plan. I spoke with the admitting team, Dr. dunn, who accepted the patient. We discussed contacting neurology, and they recommended holding off at this time but we will consult psychiatry.I did review the patient's workup for this visit. Diagnosis/symptom? @ -Dementia, agitation, altered mental status Acute, or Chronic, or Acute on Chronic? @ -Acute Uncomplicated (without systemic symptoms) or Complicated (systemic symptoms)? @ -Complicated Side effects of treatment? @ -none Exacerbation, Progression, or Severe Exacerbation] @ -no Poses a threat to life or bodily function? @ -Potentially, yes (Deion Franco) - Lab Data Lab Results 07/15/23 07/15/23 07/15/23 Range/Units 19:00 19:00 19:00 WBC 7.0 (3.8-10.6) k/uL RBC 3.90 L (4.30-5.90) m/uL Hgb 12.0 L (13.0-17.5) gm/dL Hct 36.4 L (39.0-53.0) % MCV 93.5 (80.0-100.0) fL MCH 30.8 (25.0-35.0) pg MCHC 33.0 (31.0-37.0) g/dL RDW 13.9 (11.5-15.5) % Plt Count 266 (150-450) k/uL MPV 7.6 Neutrophils % 74 % Lymphocytes % 16 % Monocytes % 6 % Eosinophils % 2 % Basophils % 1 % Neutrophils # 5.1 (1.3-7.7) k/uL Lymphocytes # 1.1 (1.0-4.8) k/uL Monocytes # 0.4 (0-1.0) k/uL Eosinophils # 0.2 (0-0.7) k/uL Basophils # 0.1 (0-0.2) k/uL PT 10.7 (10.0-12.5) sec INR 1.0 (<1.2) APTT 23.2 (22.0-30.0) sec Sodium (137-145) mmol/L Potassium (3.5-5.1) mmol/L Chloride (98-107) mmol/L Carbon Dioxide (22-30) mmol/L Anion Gap mmol/L BUN (9-20) mg/dL Creatinine (0.66-1.25) mg/dL Est GFR (CKD-EPI)AfAm (>60 ml/min/1.73 sqM) Est GFR (CKD-EPI)NonAf (>60 ml/min/1.73 sqM) Glucose (74-99) mg/dL POC Glucose (mg/dL) (70-110) mg/dL POC Glu [employer] Course Patroller ID Calcium (8.4-10.2) mg/dL Total Bilirubin (0.2-1.3) mg/dL AST (17-59) U/L ALT (4-49) U/L Alkaline Phosphatase (38-126) U/L Troponin I (0.000-0.034) ng/mL Total Protein (6.3-8.2) g/dL Albumin (3.5-5.0) g/dL Urine Color Urine Appearance (Clear) Urine pH (5.0-8.0) Ur Specific [employer] (1.001-1.035) Urine Protein (Negative) Urine Glucose (UA) (Negative) Urine Ketones (Negative) Urine Blood (Negative) Urine Nitrite (Negative) Urine Bilirubin (Negative) Urine Urobilinogen (<2.0) mg/dL Ur Leukocyte Esterase (Negative) Urine Opiates Screen Not Detected (NotDetected) Ur Oxycodone Screen Not Detected (NotDetected) Urine Methadone Screen Not Detected (NotDetected) Ur Propoxyphene Screen Not Detected (NotDetected) Ur Barbiturates Screen Not Detected (NotDetected) U Tricyclic Antidepress Not Detected (NotDetected) Ur Phencyclidine Scrn Not Detected (NotDetected) Ur Amphetamines Screen Not Detected (NotDetected) U Methamphetamines Scrn Not Detected (NotDetected) U Benzodiazepines Scrn Not Detected (NotDetected) Urine Cocaine Screen Not Detected (NotDetected) U Marijuana (THC) Screen Not Detected (NotDetected) Serum Alcohol mg/dL 07/15/23 07/15/23 07/15/23 Range/Units 19:00 19:00 19:00 WBC (3.8-10.6) k/uL RBC (4.30-5.90) m/uL Hgb (13.0-17.5) gm/dL Hct (39.0-53.0) % MCV (80.0-100.0) fL MCH (25.0-35.0) pg MCHC (31.0-37.0) g/dL RDW (11.5-15.5) % Plt Count (150-450) k/uL MPV Neutrophils % % Lymphocytes % % Monocytes % % Eosinophils % % Basophils % % Neutrophils # (1.3-7.7) k/uL Lymphocytes # (1.0-4.8) k/uL Monocytes # (0-1.0) k/uL Eosinophils # (0-0.7) k/uL Basophils # (0-0.2) k/uL PT (10.0-12.5) sec INR (<1.2) APTT (22.0-30.0) sec Sodium 144 (137-145) mmol/L Potassium 3.6 (3.5-5.1) mmol/L Chloride 107 (98-107) mmol/L Carbon Dioxide 26 (22-30) mmol/L Anion Gap 11 mmol/L BUN 24 H (9-20) mg/dL Creatinine 1.28 H (0.66-1.25) mg/dL Est GFR (CKD-EPI)AfAm 60 (>60 ml/min/1.73 sqM) Est GFR (CKD-EPI)NonAf 52 (>60 ml/min/1.73 sqM) Glucose 91 (74-99) mg/dL POC Glucose (mg/dL) (70-110) mg/dL POC Glu [employer] Patroller ID Calcium 9.1 (8.4-10.2) mg/dL Total Bilirubin 0.5 (0.2-1.3) mg/dL AST 43 (17-59) U/L ALT 35 (4-49) U/L Alkaline Phosphatase 96 (38-126) U/L Troponin I <0.012 (0.000-0.034) ng/mL Total Protein 6.6 (6.3-8.2) g/dL Albumin 3.7 (3.5-5.0) g/dL Urine Color Beth Urine Appearance Clear (Clear) Urine pH 6.0 (5.0-8.0) Ur Specific [employer] 1.025 (1.001-1.035) Urine Protein Trace H (Negative) Urine Glucose (UA) Negative (Negative) Urine Ketones Negative (Negative) Urine Blood Negative (Negative) Urine Nitrite Negative (Negative) Urine Bilirubin Negative (Negative) Urine Urobilinogen <2.0 (<2.0) mg/dL Ur Leukocyte Esterase Negative (Negative) Urine Opiates Screen (NotDetected) Ur Oxycodone Screen (NotDetected) Urine Methadone Screen (NotDetected) Ur Propoxyphene Screen (NotDetected) Ur Barbiturates Screen (NotDetected) U Tricyclic Antidepress (NotDetected) Ur Phencyclidine Scrn (NotDetected) Ur Amphetamines Screen (NotDetected) U Methamphetamines Scrn (NotDetected) U Benzodiazepines Scrn (NotDetected) Urine Cocaine Screen (NotDetected) U Marijuana (THC) Screen (NotDetected) Serum Alcohol <10 mg/dL 07/15/23 07/16/23 Range/Units 19:58 12:07 WBC (3.8-10.6) k/uL RBC (4.30-5.90) m/uL Hgb (13.0-17.5) gm/dL Hct (39.0-53.0) % MCV (80.0-100.0) fL MCH (25.0-35.0) pg MCHC (31.0-37.0) g/dL RDW (11.5-15.5) % Plt Count (150-450) k/uL MPV Neutrophils % % Lymphocytes % % Monocytes % % Eosinophils % % Basophils % % Neutrophils # (1.3-7.7) k/uL Lymphocytes # (1.0-4.8) k/uL Monocytes # (0-1.0) k/uL Eosinophils # (0-0.7) k/uL Basophils # (0-0.2) k/uL PT (10.0-12.5) sec INR (<1.2) APTT (22.0-30.0) sec Sodium (137-145) mmol/L Potassium (3.5-5.1) mmol/L Chloride (98-107) mmol/L Carbon Dioxide (22-30) mmol/L Anion Gap mmol/L BUN (9-20) mg/dL Creatinine (0.66-1.25) mg/dL Est GFR (CKD-EPI)AfAm (>60 ml/min/1.73 sqM) Est GFR (CKD-EPI)NonAf (>60 ml/min/1.73 sqM) Glucose (74-99) mg/dL POC Glucose (mg/dL) 82 88 (70-110) mg/dL POC Glu [employer] Course Patroller ID Lc Crawford Kaylea Calcium (8.4-10.2) mg/dL Total Bilirubin (0.2-1.3) mg/dL AST (17-59) U/L ALT (4-49) U/L Alkaline Phosphatase (38-126) U/L Troponin I (0.000-0.034) ng/mL Total Protein (6.3-8.2) g/dL Albumin (3.5-5.0) g/dL Urine Color Urine Appearance (Clear) Urine pH (5.0-8.0) Ur Specific [employer] (1.001-1.035) Urine Protein (Negative) Urine Glucose (UA) (Negative) Urine Ketones (Negative) Urine Blood (Negative) Urine Nitrite (Negative) Urine Bilirubin (Negative) Urine Urobilinogen (<2.0) mg/dL Ur Leukocyte Esterase (Negative) Urine Opiates Screen (NotDetected) Ur Oxycodone Screen (NotDetected) Urine Methadone Screen (NotDetected) Ur Propoxyphene Screen (NotDetected) Ur Barbiturates Screen (NotDetected) U Tricyclic Antidepress (NotDetected) Ur Phencyclidine Scrn (NotDetected) Ur Amphetamines Screen (NotDetected) U Methamphetamines Scrn (NotDetected) U Benzodiazepines Scrn (NotDetected) Urine Cocaine Screen (NotDetected) U Marijuana (THC) Screen (NotDetected) Serum Alcohol mg/dL Disposition Is patient prescribed a controlled substance at d/c from ED?: No <Brandon Crawford - Last Filed: 07/15/23 21:00> <Juan Burnham - Last Filed: 07/16/23 05:25> Time of Disposition: 16:20 <Deion Franco - Last Filed: 07/16/23 17:07> Clinical Impression: Agitation, AMS (altered mental status), Dementia Disposition: ADMITTED IP TO THIS HOSP Condition: Stable
[2023-07-15] MEDS ORDERED: ACETAMINOPHEN TAB 500 MG TAB PO STA (19:05)
[2023-07-15 19:54] LABS: Basophils # (A) 0.1 k/uL (0-0.2); Basophils % (A) 1 %; Eosinophils # (A) 0.2 k/uL (0-0.7); Eosinophils % (A) 2 %; HCT 36.4 % (39.0-53.0); Lymphocytes # (A) 1.1 k/uL (1.0-4.8); Lymphocytes % (A) 16 %; MCH 30.8 pg (25.0-35.0); MCV 93.5 fL (80.0-100.0); Mean Platelet Volume 7.6; Monocytes # (A) 0.4 k/uL (0-1.0); Monocytes % (A) 6 %; Neutrophils # (A) 5.1 k/uL (1.3-7.7); Neutrophils % (A) 74 %; Platelet Count 266 k/uL (150-450); RDW 13.9 % (11.5-15.5)
[2023-07-15 19:59] LABS: Glucose,Whole Blood 82 mg/dL (70-110)
[2023-07-15 20:02] LABS: Partial Thromboplastin Time 23.2 sec (22.0-30.0); Prothrombin Time 10.7 sec (10.0-12.5)
--- NOTE | 2023-07-15 20:19 | CT ---
EXAMINATION TYPE: CT brain wo con CT DLP: 1126.2 mGycm, Automated exposure control for dose reduction was used. DATE OF EXAM: 07/15/2023 8:05 PM COMPARISON: None. CLINICAL INDICATION:Male, 82 years old with history of Altered mental status, ams TECHNIQUE: Brain: Axial CT images of the brain were obtained with coronal and sagittal reformats created and rev iewed. Contrast used: None. Oral contrast used: None. FINDINGS: Extra-axial spaces: No abnormal extra-axial fluid collections. Ventricular system: Appear dilated in proportion to the degree of cerebral atrophy. Cerebral parenchyma: No increased attenuation to suggest acute intraparenchymal hemorrhage. The gra y-white matter interface appears maintained. Moderate generalized brain atrophy. Scattered hypoatte nuating areas are seen within the cerebral white matter, nonspecific but most often seen with chronic microvascular ischemic changes; moderate in degree. Cerebellum: No acute abnormality. Mass effect: No evidence of mass effect or midline shift. Intracranial vasculature: Atherosclerotic calcifications of the larger arteries near the skull base. Soft tissues: Small focal scalp soft tissue swelling over the left frontal bone suggesting contusion. Visualized orbits: Orbital contents appear grossly intact. Radiodensities along the globes likely s equela of previous ophthalmologic surgery. Calvarium/osseous structures: No evidence of calvarial fracture. Paranasal sinuses and mastoid air cells: There appear to be operative openings in the medial maxillar y sinus dubois bilaterally. Soft tissue density within the right nasal passage, may represent mucosal thickening or polyp. No significant fluid in the visualized paranasal sinuses. MRI is more sensitive for detecting acute processes such as infarct, and may be considered if clinica lly warranted. IMPRESSION: 1. Small contusion suggested over the left frontal bone. No evidence of calvarial fracture. 2. No acute intracranial CT abnormality. 3. Atrophy and chronic microvascular ischemic white matter changes. 4. Soft tissue density within the right nasal passage, may represent mucosal thickening or polyp. No significant fluid in the visualized paranasal sinuses.
[2023-07-15 20:24] LABS: Appearance,Urine Clear (Clear); Color,Urine Amber; Specific Gravity,Urine 1.025 (1.001-1.035)
[2023-07-15 20:25] LABS: Bilirubin,Urine Negative (Negative); Blood,Urine Negative (Negative); Glucose,Urine (UA) Negative (Negative); Ketones,Urine Negative (Negative); Leukocyte Esterase,Urine Negative (Negative); Nitrite,Urine Negative (Negative); Protein,Urine Trace (Negative); Urobilinogen,Urine <2.0 mg/dL (<2.0)
[2023-07-15 20:36] LABS: Amphetamine Screen,Urine Not Detected (NotDetected); Barbiturate Screen,Urine Not Detected (NotDetected); Benzodiazepines Screen,Urine Not Detected (NotDetected); Cocaine Screen,Urine Not Detected (NotDetected); Methadone Screen, Urine Not Detected (NotDetected); Opiate Screen,Urine Not Detected (NotDetected); Oxycodone Screen, Urine Not Detected (NotDetected); Phencyclidine Screen,Urine Not Detected (NotDetected); Tricyclic Antidepressant,Urine Not Detected (NotDetected); Urn Cannabinoid Scrn Not Detected (NotDetected)
[2023-07-15 20:37] LABS: ALT 35 U/L (4-49); AST 43 U/L (17-59); African American GFR (CKD) 60 (>60 ml/min/1.73 sqM); Albumin 3.7 g/dL (3.5-5.0); Alcohol <10 mg/dL; Alkaline Phosphatase 96 U/L (38-126); Anion Gap 11 mmol/L; Blood Urea Nitrogen 24 mg/dL (9-20); Calcium 9.1 mg/dL (8.4-10.2); Carbon Dioxide 26 mmol/L (22-30); Chloride 107 mmol/L (98-107); Glucose 91 mg/dL (74-99); Non-African American GFR(CKD) 52 (>60 ml/min/1.73 sqM); Potassium 3.6 mmol/L (3.5-5.1); Sodium 144 mmol/L (137-145); Total Bilirubin 0.5 mg/dL (0.2-1.3); Total Protein 6.6 g/dL (6.3-8.2)
--- NOTE | 2023-07-15 20:46 | XR ---
EXAMINATION TYPE: XR chest 2V DATE OF EXAM: 07/15/2023 8:10 PM CLINICAL INDICATION:Male, 82 years old with history of altered mental status; [facility] COMPARISON: Chest x-ray 04/08/2023 TECHNIQUE: XR chest 2V. Frontal PA and lateral views of the chest. FINDINGS: Lines/Tubes: None. Heart/mediastinum: Cardiomediastinal silhouette is well defined. Heart size is normal. Mildly tortu ous partially calcified aorta. Electronic device, likely loop recorder projects over the left chest. Pulmonary vascularity: Not increased, Lungs/Pleura: Hyperinflation of the lungs with coarsening of interstitium suggesting COPD changes and possibly some fibrosis, similar to prior. There is no evidence of pleural effusion, focal consolidat ion, or pneumothorax. Musculoskeletal: No acute osseous abnormality demonstrated in the limits of the exam. Degenerative c hanges of the spine and shoulders. Other findings: None. IMPRESSION: No acute findings, or significant interval change.
[2023-07-15] MEDS ORDERED: QUEtiapine 25 MG TAB PO SCH (22:00)
[2023-07-15] MEDS ORDERED: ATORVASTATIN 20 MG TAB PO SCH (22:00)
[2023-07-15] MEDS: amLODIPine 5 MG TAB PO SCH (22:05)
[2023-07-15] MEDS: SERTRALINE 50 MG TAB PO SCH (22:05)
[2023-07-15] MEDS: MELATONIN 3 MG TABLET PO SCH (22:05)
[2023-07-16] MEDS ORDERED: QUEtiapine 25 MG TAB PO STA ×2 (01:06→07:26)
[2023-07-16] MEDS ORDERED: LORazepam 2 MG/ML INJ IV STA ×3 (02:29→05:22)
[2023-07-16 12:08] LABS: Glucose,Whole Blood 88 mg/dL (70-110)
[2023-07-16] MEDS ORDERED: NALOXONE 0.4 MG/ML 1 ML VIAL IV PRN ×2 (16:22→16:27)
--- NOTE | 2023-07-16 17:00 | P.HPIM ---
History of Present Illness H&P Date: 07/16/23 Patient is a 82-year-old male with a history of Lewy body dementia, hypothyroidism, hypertension, dyslipidemia, CVA coming from nursing facility with worsening mental status and combative behavior. Patient unable to provide any history. Per report, patient was increasingly more combative at the nursing facility and was transferred over to ER for further evaluation. In the ED, temperature was 98, pulse 68, respiratory 14, blood pressure 168/85, saturating at 99% on room air. WBC 7, hemoglobin 12, creatinine 1.28 around baseline, troponin negative, blood sugar is 91, urinalysis, toxicology negative. CT head shows small contusion over the left frontal lobe, no other intracranial abnormalities. Chest x-ray independently interpreted, no acute process. EKG independently interpreted, shows sinus bradycardia. Patient being admitted for worsening dementia with behavior disturbances. In the ER he did receive IV Ativan and oral therapy. Pertinent positives and negatives as discussed in HPI, a complete review of systems was performed and all other systems are negative. Patient seen and examined at bedside. Vital signs reviewed General: nontoxic, no distress, appears at stated age Derm: warm, dry Head: atraumatic, normocephalic, symmetric Eyes: EOMI, no lid lag, anicteric sclera, pupils equal round reactive to light ENT: Nose and ears atraumatic Neck: No thyromegaly, supple Mouth: no lip lesion, mucus membranes moist Cardiovascular: S1S2 reg, no murmur, no edema Lungs: clear to auscultation bilateral, no rhonchi, no rales, no wheeze, no accessory muscle use Abdominal: soft, nontender to palpation, no guarding, no appreciable organomegaly Ext: no gross muscle atrophy, muscle strength muscle strength 5 out of 5 in all 4 extremities, no contractures Neuro: CN II-XII grossly intact Psych: Alert, oriented, appropriate affect Assessment/Plan: Active: Acute on chronic encephalopathy Worsening Lewy body dementia with behavioral disturbances Hypothyroidism Frequent falls Left frontal contusion Dyslipidemia Hypertension History of CVA -Patient was recently admitted and discharged on 07/12/23 -He was evaluated by both psychiatry and neurology during that time -Quetiapine was increased and memantine was started -He is still having frequent combative episodes -Will likely benefit from increasing quetiapine again, increased to 50 mg qhs -Psychiatry consulted -Likely discharge back to rehab facility in a day or 2 -Restarted Zyprexa 2. 5 at night as well -Continue sertraline 150 mg daily at bedtime -Rest of the home medications reviewed and restarted The patient is admitted with an anticipated less than 2 midnight stay as observation status for evaluation of worsening dementia. Surrogate decision-maker: CODE STATUS: Full code DVT prophylaxis: Lovenox Anticipated discharge date: Pending clinical course Anticipated discharge place: Pending clinical course A total of 55 minutes was spent on the care of this complex patient more than 50% of the time was spent in counseling and care coordination. Past Medical History Past Medical History: Cancer, CVA/TIA, Dementia, Hearing Disorder / Deafness, Hyperlipidemia, Hypertension, Memory Impairment, Prostate Disorder, Syncope Additional Past Medical History / Comment(s): HX OF COLON POLYPS, HX OF DIVERTICULITUS, TIA UNKNOWN WHEN, HX OF THYROID AND SKIN CANCER, HX OF BPH. Has heart monitor implant. Bilateral hearing aids. History of Any Multi-Drug Resistant Organisms: None Reported Past Surgical History: Bowel Resection, Prostate Surgery Additional Past Surgical History / Comment(s): THYROIDECTOMY, PARATHYROID SURGERY, TRIGGER FINGER SURGERY, NASAL POLYPS REMOVED, TURP, BILATERAL CATARACTS REMOVED, heart monitor implant. Past Anesthesia/Blood Transfusion Reactions: Motion Sickness Past Psychological History: Anxiety, Depression Smoking Status: Former smoker Past Alcohol Use History: Occasional Past Drug Use History: None Reported - Past Family History Mother Family Medical History: Cancer Additional Family Medical History / Comment(s): PANCREATIC CANCER. Brother(s) Family Medical History: Cancer Additional Family Medical History / Comment(s): PROSTATE CANCER. Medications and Allergies Home Medications Medication Instructions Recorded Confirmed Type Fluticasone Nasal [place] [Flonase 1 spr EA NOSTRIL BID 12/09/17 07/15/23 History Nasal [place]] amLODIPine [Norvasc] 5 mg PO HS 12/09/17 07/15/23 History Vit C/E/Zn/Coppr/Lutein/Zeaxan 1 cap PO BID 01/27/18 07/15/23 History [Preservision Areds 2 Softgel] Atorvastatin Calcium [Lipitor] 20 mg PO HS 12/24/19 07/15/23 History Levothyroxine Sodium 125 mcg PO DAILY 08/27/21 07/15/23 History Famotidine [Pepcid] 20 mg PO BID 07/06/23 07/15/23 History atenoloL [Tenormin] 25 mg PO DAILY 07/06/23 07/15/23 History Acetaminophen Tab [Tylenol] 650 mg PO Q6HR PRN tab 07/12/23 07/15/23 Rx Melatonin 3 mg PO HS tab 07/12/23 07/15/23 Rx Memantine [Namenda] 5 mg PO BID tab 07/12/23 07/15/23 Rx Acetaminophen [Tylenol 8 Hour] 650 mg PO Q6H 07/15/23 07/15/23 History OLANZapine [ZyPREXA] 2.5 mg PO HS 07/15/23 07/15/23 History QUEtiapine [SEROquel] 37.5 mg PO HS 07/15/23 07/15/23 History Sertraline HCl 150 mg PO HS 07/15/23 07/15/23 History polyethylene glycoL 3350 [Miralax] 17 gm PO DAILY 07/15/23 07/15/23 History Allergies Allergy/AdvReac Type Severity Reaction Status Date / Time meperidine Allergy Nausea & Verified 07/15/23 19:17 Vomiting clarithromycin [From Biaxin] AdvReac "chest Verified 07/15/23 19:17 pain" Physical Exam Vitals: Vital Signs Temp Pulse Resp BP Pulse Ox 07/16/23 14:00 50 L 18 120/55 97 07/16/23 11:32 62 93/76 93 L 07/16/23 10:39 80 100/48 85 L 07/16/23 06:30 98.2 F 92 20 142/82 99 07/15/23 20:26 71 20 132/77 100 07/15/23 17:47 98.0 F 68 14 168/85 99 Results CBC & Chem 7: 07/15/23 19:00 07/15/23 19:00 Labs: Abnormal Lab Results - Last 24 Hours (Table) 07/15/23 07/15/23 07/15/23 Range/Units 19:00 19:00 19:00 RBC 3.90 L (4.30-5.90) m/uL Hgb 12.0 L (13.0-17.5) gm/dL Hct 36.4 L (39.0-53.0) % BUN 24 H (9-20) mg/dL Creatinine 1.28 H (0.66-1.25) mg/dL Urine Protein Trace H (Negative)
[2023-07-16] MEDS: ACETAMINOPHEN TAB 325 MG TAB PO SCH ×2 (17:39→22:08)
[2023-07-16] MEDS ORDERED: OLANZapine 2.5 MG TAB PO SCH (21:00)
[2023-07-16] MEDS: MELATONIN 3 MG TABLET PO SCH (21:17)
[2023-07-16] MEDS: amLODIPine 5 MG TAB PO SCH (21:17)
[2023-07-16] MEDS: FAMOTIDINE 20 MG TAB PO SCH (21:17)
[2023-07-16] MEDS: FLUTICASONE 50MCG/SPRAY NASAL 16GM EA NOSTRIL SCH (21:17)
[2023-07-16] MEDS: MEMANTINE 5 MG TAB PO SCH (21:17)
[2023-07-16] MEDS: ATORVASTATIN 20 MG TAB PO SCH (21:17)
[2023-07-16] MEDS: QUEtiapine 25 MG TAB PO SCH (21:18)
[2023-07-16] MEDS: SERTRALINE 50 MG TAB PO SCH (21:18)
[2023-07-17] MEDS: ACETAMINOPHEN TAB 325 MG TAB PO SCH ×4 (03:47→23:20)
[2023-07-17 08:07] LABS: Basophils # (A) 0.1 k/uL (0-0.2); Basophils % (A) 1 %; Eosinophils # (A) 0.2 k/uL (0-0.7); Eosinophils % (A) 3 %; HCT 34.2 % (39.0-53.0); HGB 11.2 gm/dL (13.0-17.5); Lymphocytes # (A) 1.2 k/uL (1.0-4.8); Lymphocytes % (A) 16 %; MCH 30.7 pg (25.0-35.0); MCHC 32.6 g/dL (31.0-37.0); MCV 94.1 fL (80.0-100.0); Mean Platelet Volume 7.5; Monocytes # (A) 0.4 k/uL (0-1.0); Monocytes % (A) 6 %; Neutrophils % (A) 71 %; Platelet Count 220 k/uL (150-450); RBC 3.64 m/uL (4.30-5.90); RDW 13.7 % (11.5-15.5); WBC 7.1 k/uL (3.8-10.6)
[2023-07-17 08:26] LABS: African American GFR (CKD) 75 (>60 ml/min/1.73 sqM); Anion Gap 9 mmol/L; Blood Urea Nitrogen 20 mg/dL (9-20); Calcium 8.8 mg/dL (8.4-10.2); Carbon Dioxide 25 mmol/L (22-30); Chloride 107 mmol/L (98-107); Glucose 74 mg/dL (74-99); Non-African American GFR(CKD) 65 (>60 ml/min/1.73 sqM); Potassium 3.5 mmol/L (3.5-5.1); Sodium 141 mmol/L (137-145)
[2023-07-17] MEDS: MEMANTINE 5 MG TAB PO SCH ×2 (08:28→20:10)
[2023-07-17] MEDS: polyethylene glycoL 3350 17 GM POWD.PACK PO SCH (08:28)
[2023-07-17] MEDS: atenoloL 25 MG TAB PO SCH (08:28)
[2023-07-17] MEDS: ENOXAPARIN 40 MG/0.4 ML SYRINGE SQ SCH (08:28)
[2023-07-17] MEDS: LEVOTHYROXINE 125 MCG TAB PO SCH (08:29)
[2023-07-17] MEDS: FLUTICASONE 50MCG/SPRAY NASAL 16GM EA NOSTRIL SCH ×2 (08:29→21:49)
[2023-07-17] MEDS: FAMOTIDINE 20 MG TAB PO SCH ×2 (08:29→20:10)
[2023-07-17 11:17] LABS: Glucose,Whole Blood 96 mg/dL (70-110)
--- NOTE | 2023-07-17 11:55 | P.PN ---
Subjective Progress Note Date: 07/17/23 Hospital Course: 82-year-old male with a history of Lewy body dementia, hypothyroidism, hypertension, dyslipidemia, CVA coming from nursing facility with worsening mental status and combative behavior. In the ED, temperature was 98, pulse 68, respiratory 14, blood pressure 168/85, saturating at 99% on room air. WBC 7, hemoglobin 12, creatinine 1.28 around baseline, troponin negative, blood sugar is 91, urinalysis, toxicology negative. CT head shows small contusion over the left frontal lobe, no other intracranial abnormalities. Chest x-ray independently interpreted, no acute process. EKG independently interpreted, shows sinus bradycardia. Patient being admitted for worsening dementia with behavior disturbances. In the ER he did receive IV Ativan and oral therapy. Psychiatry consulted. Subjective: Patient seen and examined at bedside. Still having periods of restlessness and agitation, no combative behavior. Pertinent positives and negatives as discussed above, a complete review of systems was performed and all other systems are negative. Vitals Signs Reviewed. General: nontoxic, no distress, appears at stated age Derm: warm, dry Head: normocephalic, symmetric Eyes: Left eye ecchymosis, pupils equal and reactive ENT: Nose and ears atraumatic Neck: No thyromegaly, supple Mouth: no lip lesion, mucus membranes moist Cardiovascular: S1S2 reg, no murmur, no edema Lungs: clear to auscultation bilateral, no rhonchi, no rales, no wheeze, no accessory muscle use Abdominal: soft, nontender to palpation, no guarding, no appreciable organomegaly Ext: no gross muscle atrophy, muscle strength muscle strength 5 out of 5 in all 4 extremities, no contractures Neuro: CN II-XII grossly intact Psych: Alert, oriented 1, appropriate affect Data Reviewed Today: Pertinent Labs: WBC 7.1, hemoglobin 11.2, creatinine 1.06, blood sugars range between 74-96 Imaging: No new imaging Assessment and Plan: Acute on chronic encephalopathy Worsening Lewy body dementia with behavioral disturbances Hypothyroidism Frequent falls Left frontal contusion Dyslipidemia Hypertension History of CVA -Patient was recently admitted and discharged on 07/12/23 -He was evaluated by both psychiatry and neurology during that time -Quetiapine was increased and memantine was started at that -He is still having frequent combative episodes -Will likely benefit from increasing quetiapine again, increased to 50 mg qhs -Psychiatry consulted -Also started on hydroxyzine 25 daily every 8 hours as needed -Likely discharge back to rehab facility in a day or 2 -On Zyprexa 2. 5 at night as well -Continue sertraline 150 mg daily at bedtime -Rest of the home medications reviewed and restarted DVT ppx: Lovenox Code status: No code Anticipated discharge place: nursing facility Anticipated discharge time: Likely tomorrow Objective - Vital Signs Vital signs: Vital Signs Temp 97.8 F 07/17/23 07:39 Pulse 62 07/17/23 07:39 Resp 16 07/17/23 08:20 BP 147/70 07/17/23 07:39 Pulse Ox 99 07/17/23 07:39 FiO2 Intake & Output 07/16/23 07/17/23 07/17/23 18:59 06:59 18:59 Weight 73.482 kg Other: Voiding Method Urinal - Labs CBC & Chem 7: 07/17/23 07:35 07/17/23 07:35 Labs: Abnormal Lab Results - Last 24 Hours (Table) 07/17/23 Range/Units 07:35 RBC 3.64 L (4.30-5.90) m/uL Hgb 11.2 L (13.0-17.5) gm/dL Hct 34.2 L (39.0-53.0) %
--- NOTE | 2023-07-17 15:51 | P.CN ---
Psychiatric Consult - . Consult date: 07/17/23 Consult:: 07/17/23 15:25 Consultation service: Reason for Consult/Chief Complaint: "Altered mental status, dementia, agitation" History of Present Illness: Patient was seen in the medical floor while he was lying in bed and his "Darin" and the daughter "Jewell" were at bedside. The patient was admitted to the hospital because of worsening mental status and the combative behavior at the intermediate. Home psychiatric medication reviewed showed that the patient was prescribed Zyprexa 2.5 mg at bedtime, Seroquel 50 mg at bedtime, and Zoloft 150 mg daily. The patient was seen by psychiatric team at this hospital during a recent hospitalization and the recommendations was to increase Seroquel dose to help managing agitation and psychotic symptoms. According to the nursing staff, the patient has established diagnosis of Lewy body dementia and he continues to have episodes of severe agitation and combativeness. The patient didn't present combative or agitated today but he was more confused. The patient didn't need any restrains or when necessary medications for agitation today. The nursing staff admitted that patient continues to see people in his physical Arnold existing and sometimes talking about the TV talks to him. The patient couldn't provide any history during the evaluation and he was seen while he was lying in bed, calm, but not cooperative, and not oriented. The patient couldn't identify his was at the bedside and when she asking him about her name, he give her his mother's name according to his . The patient was very incoherent and nonsensical in his speech. The family reported that patient has diagnosis of Parkinson and there would body dementia almost a year ago and progressively shown behavioral problems and psychosis over the past year. The family reports worsening of his behavioral problems and psychosis over the past a few months that when he was at home he was seeing people in the house and one day he was chasing nonexisting helicopter with a broom because he was thinking that this helicopter came to take his dog. The family reports that the patient had very unsteady gait and he has been always shaking since a diagnosed with Lewy body dementia year ago. The family couldn't handle the patient's behavior and he was admitted to a intermediate few days ago; however, the intermediate refer to the patient to the hospital last night because of combative behavior and hallucinations. Past Medical History: Cancer, CVA/TIA, Hearing Disorder / Deafness, Hyperlipidemia, Hypertension, Memory Impairment, Prostate Disorder, Sleep Apnea/CPAP/BIPAP, Syncope Additional Past Medical History / Comment(s): HX OF COLON POLYPS, HX OF DIVERTICULITUS, TIA UNKNOWN WHEN, HX OF THYROID AND SKIN CANCER, HX OF BPH. Has heart monitor implant. Bilateral hearing aids. ALLERGIES: None reported Past psychiatric history: Psychiatric diagnosis: Depression, and low body dementia Previous psychiatric hospitalizations: None reported Previous suicidal attempts: None reported Previous/ current outpatient psychiatric treatment: None reported, but the patient was maintained on antidepressant medications by his primary care provider. During this recent hospitalization and after seen by psychiatric team at this hospital, the home psychiatric medications were adjusted by discontinuing Wellbutrin and continuing Zoloft. Substance use history: Nicotine: former smoking Alcohol: History of occasional alcohol drinking. No history of problematic drinking. No history of using illicit drugs. Social/ Developmental History: Patient was born and raised in [facility] [facility]. The patient completed high school and also college. 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 The patient was recently moved to a intermediate. Family Psychiatric History: None reported Mental Status Examination: Appearance: Appears stated age, has bruises around his left eye and forehead. Gait/ posture: not evaluated today Attitude and Behavior: Indifferent, uncooperative, bizarre Motor Activity: Increased psychomotor activity. Speech: Abnormal rate, None pressured. Mood: Reported Affect: stable Thought form: Incoherent Thought content: Not logical, delusional, no report of suicidal or homicidal ideation Perception: Positive for auditory and visual hallucinations Attention: Very distracted and confused Orientation: Disoriented to person, place, situation, and time. Not able to answer questions Insight & Judgment: Poor Impulse control: poor Assessment: Parkinson induced psychosis. r/o Lewy Body Dementia vs vascular dementia Hx of depressive disorder Recommendation: Addressed and ensured patient's safety, patient does not meet the criteria for psychiatric hospitalization. The psychiatry team will continue follow-up with the patient . Please contact the psychiatric team before discharging the patient Medication management: Please discontinue Zyprexa as there is no indication to have to antipsychotic medication. Also noted recommended to use Zyprexa with Parkinson induced psychosis Continue Seroquel and increasing the dose to 25 mg by mouth every morning and 50 mg at bedtime for psychotic symptoms and agitation Continue 150 mg by mouth daily for depression symptoms Discussed with the family Pimavanserine which could be an alternative treatment for Parkinson disease psychosis if the patient did not respond to Seroquel Refer the patient to outpatient psychiatric treatment after discharge Delirium precautions recommended with the patient including avoid use of narcotics and ACCOUNTS PAYABLE PAYROLL COORDINATOR sedatives, limit anticholinergic medications, when possible, frequent reorientation, minimize use of restraints, open window shades during the day and close them at night. Brief supportive psychotherapy and psychoeducation was provided to the patient's family Discussed the treatment plan with the requesting physician/service. Thank you for permitting me to assist in this patient's treatment. Please call the psychiatry department if you have any questions or need further help with this case.
[2023-07-17] MEDS: hydrOXYzine HCL 25 MG TAB PO PRN (17:33)
[2023-07-17] MEDS: amLODIPine 5 MG TAB PO SCH (20:10)
[2023-07-17] MEDS: QUEtiapine 25 MG TAB PO SCH (20:10)
[2023-07-17] MEDS: MELATONIN 3 MG TABLET PO SCH (20:10)
[2023-07-17] MEDS: SERTRALINE 50 MG TAB PO SCH (20:10)
[2023-07-17] MEDS: ATORVASTATIN 20 MG TAB PO SCH (20:10)
[2023-07-18] MEDS: ACETAMINOPHEN TAB 325 MG TAB PO SCH ×4 (05:59→21:49)
[2023-07-18] MEDS: MEMANTINE 5 MG TAB PO SCH ×2 (10:12→21:48)
[2023-07-18] MEDS: polyethylene glycoL 3350 17 GM POWD.PACK PO SCH (10:12)
[2023-07-18] MEDS: QUEtiapine 25 MG TAB PO SCH ×2 (10:12→21:48)
[2023-07-18] MEDS: ENOXAPARIN 40 MG/0.4 ML SYRINGE SQ SCH (10:12)
[2023-07-18] MEDS: LEVOTHYROXINE 125 MCG TAB PO SCH (10:12)
[2023-07-18] MEDS: FAMOTIDINE 20 MG TAB PO SCH ×2 (10:12→21:49)
[2023-07-18] MEDS: atenoloL 25 MG TAB PO SCH (10:12)
[2023-07-18] MEDS: FLUTICASONE 50MCG/SPRAY NASAL 16GM EA NOSTRIL SCH ×2 (10:15→21:49)
[2023-07-18] MEDS: hydrOXYzine HCL 25 MG TAB PO PRN (14:35)
--- NOTE | 2023-07-18 16:36 | P.PN ---
Subjective Progress Note Date: 07/18/23 Hospital course: Patient is a very pleasant 82-year-old male with a past medical history of newly body dementia, hypothyroidism, hypertension, hyperlipidemia, and CVA. He presented to the emergency department on 07/16/23 secondary to reports of worsening mental status and combative behaviors. Patient underwent full evaluation in the emergency department. Vital signs upon arrival temp 98.0F, heart rate 68, respiratory rate 14, blood pressure 168/85 and SpO2 of 99% on room air. Labs were completed revealing WBC 7, hemoglobin 12, creatinine 1.28 around baseline, troponin negative, blood sugar is 91, urinalysis, toxicology negative. CT head revealing small contusion over the left frontal lobe, no other intracranial abnormalities. Chest x-ray no acute process. EKG indepen dently interpreted, shows sinus bradycardia. Patient being admitted for worsening dementia with behavior disturbances. In the ER he did receive IV Ativan and oral therapy. Psychiatry consulted. Physical exam: Patient sitting up in his bed eating breakfast this morning. He is calm and cooperative. Vital signs reviewed and stable. General: Nontoxic, no distress and appears stated age. Derm: Skin warm and dry, normal coloration for ethnicity. Head: Atraumatic, normocephalic and symmetric. Eyes: EOMs intact, no lid lag, and anicteric sclera Mouth: no lip lesions, mucus membranes moist Cardiovascular: regular rate and rhythm with normal S1S2, no murmur, positive posterior tibial pulses bilaterally, and cap refill < 2 seconds. Lungs: Respirations even, regular, and unlabored on room air. Lungs CTA bilaterally, no rhonchi, no rales, no wheezing, and no accessory muscle usage. Abdominal: soft, nontender to palpation, no guarding, no appreciable organomegaly Ext: ROM intact. No gross muscle atrophy, no edema, no contractures Neuro: Patient with stuttering speech. Psych: Awake and alert. Patient alert to self only and confused to time, place, and situation. He is currently pleasant and cooperative. Assessment and Plan of Care: Acute on chronic encephalopathy Worsening Lewy body dementia with behavioral disturbances Hypothyroidism Frequent falls Left frontal contusion Dyslipidemia Hypertension History of CVA -Patient was recently admitted and discharged on 07/12/23 -He was evaluated by both psychiatry and neurology during that time -Quetiapine was increased and memantine was started during that hospitalization -It was reported that patient continues having recurrent episodes of frequent combative behaviors. -Psychiatry again consulted and evaluated. Reviewed documentation in chart. -Seroquel was increased to 25 mg daily and 50 mg nightly. Zyprexa was disc ontinued. -Patient to otherwise continue with sertraline 150 mg nightly and Namenda 5 mg twice daily, Initial plan was for discharge home today however patient's family concerned that extended care facility will just send patient back to the emergency department. We will monitor patient for an additional 24 hours with plans to discharge back to extended care facility tomorrow morning. Patient currently showing no signs of argument today or combative behaviors. Data and imaging reviewed: Vital signs reviewed. Blood pressure 115/62, heart rate 68, respiratory rate 15, temp 97.8F, and SpO2 of 97% on room air. CODE STATUS: DO NOT RESUSCITATE DVT prophylaxis: Lovenox Anticipated discharge date: Tomorrow morning Anticipated discharge place: Return to [facility]. Patient was seen independently by Nurse Pracitioner. This document was prepared using [employer] dictation software. Please allow for errors in jewel bearing broacher, while rare they do occur. I reviewed the documentation as provided by the YEE above, who is the original author of this note. I agree with the documented assessment and plan, with the following changes: none Objective - Vital Signs Vital signs: Vital Signs Temp 97.8 F 07/18/23 07:39 Pulse 68 07/18/23 07:39 Resp 15 07/18/23 07:39 BP 115/62 07/18/23 07:39 Pulse Ox 97 07/18/23 07:39 FiO2 Intake & Output 07/17/23 07/18/23 07/18/23 18:59 06:59 18:59 Weight 73.482 kg Other: Voiding Method Urinal Urinal # Voids 1 1 - Labs CBC & Chem 7: 07/17/23 07:35 07/17/23 07:35
[2023-07-18] MEDS: MELATONIN 3 MG TABLET PO SCH (21:48)
[2023-07-18] MEDS: ATORVASTATIN 20 MG TAB PO SCH (21:48)
[2023-07-18] MEDS: SERTRALINE 50 MG TAB PO SCH (21:48)
[2023-07-18] MEDS: amLODIPine 5 MG TAB PO SCH (21:49)
[2023-07-19] MEDS: ACETAMINOPHEN TAB 325 MG TAB PO SCH ×4 (06:17→21:51)
[2023-07-19] MEDS: QUEtiapine 25 MG TAB PO SCH ×3 (09:47→21:50)
[2023-07-19] MEDS: FAMOTIDINE 20 MG TAB PO SCH ×2 (09:47→21:50)
[2023-07-19] MEDS: LEVOTHYROXINE 125 MCG TAB PO SCH (09:47)
[2023-07-19] MEDS: ENOXAPARIN 40 MG/0.4 ML SYRINGE SQ SCH (09:47)
[2023-07-19] MEDS: polyethylene glycoL 3350 17 GM POWD.PACK PO SCH (09:47)
[2023-07-19] MEDS: atenoloL 25 MG TAB PO SCH (09:47)
[2023-07-19] MEDS: MEMANTINE 5 MG TAB PO SCH ×2 (09:47→21:50)
--- NOTE | 2023-07-19 09:58 | P.DS ---
Providers Date of admission: 07/16/23 16:25 Expected date of discharge: 07/19/23 Attending physician: Alex Smalls MD Consults: 07/16/23 16:22 Consult Physician Routine Consulting Provider: Osmani Casanova Consult Reason/Comments: ams, dementia, agitation Do you want consulting provider notified?: Yes Primary care physician: Sidney Haynes MD Hospital Course: Discharge Diagnosis: Worsening Lewy body dementia with behavioral disturbances. Pt was evaluated by psychiatrist, Seroquel was increased to 25 mg daily and 50 mg nightly. Zyprexa was discontinued. Patient will also continue with sertraline 150 mg nightly 5 and Namenda 5 mg twice daily. Acute on chronic encephalopathy secondary to above. Hypothyroidism, recent labs completed June showing low thyroidism. Patient started on Synthroid 125 g daily and patient will need to have repeat labs to monitor thyroid function in 6 weeks. Frequent falls, patient requires 24-hour supervision as he is a high fall risk. Left frontal contusion, CT head revealed small contusion over the left frontal bone with no evidence of calvarial fracture, negative for acute intercranial process, and soft tissue density within the right nasal passage possibly representing mucosal thickening or polyp Dyslipidemia. Continue atorvastatin 20 mg nightly. Hypertension, continue amlodipine 5 mg nightly and atenolol 25 mg daily History of CVA, continue atorvastatin 20 mg nightly. Miliaria, patient with mild prickly heat rash on his back secondary to sweal. Placed on hydrocortisone 1% cream 3 times daily to rash. Hospital Course: Patient is a very pleasant 82-year-old male with a past medical history of newly body dementia, hypothyroidism, hypertension, hyperlipidemia, and CVA. He presented to the emergency department on 07/16/23 secondary to reports of worsening mental status and combative behaviors. Patient underwent full evaluation in the emergency department. Vital signs upon arrival temp 98.0F, heart rate 68, respiratory rate 14, blood pressure 168/85 and SpO2 of 99% on room air. Labs were completed revealing WBC 7, hemoglobin 12, creatinine 1.28 around baseline, troponin negative, blood sugar is 91, urinalysis, toxicology negative. CT head revealing small contusion over the left frontal lobe, no oth er intracranial abnormalities. Chest x-ray no acute process. EKG independently interpreted, shows sinus bradycardia. Patient was admitted for worsening dementia with behavior disturbances. He underwent a 3 day hospitalization. He was evaluated by psychiatry and medication changes were made. Seroquel was increased to 25 mg daily and 50 mg nightly. Zyprexa was discontinued. Patient will also continue with sertraline 150 mg nightly 5 and Namenda 5 mg twice daily. Patient had no further reports of combative behaviors. Medically, patient is stable at this time. Patient being discharged back to [facility]. Discharge instructions included recommending limiting distractions by keeping pt's environment quiet and calm, reduce need for complex decision- making, provide frequent reassurance and praise, and kindly redirect patient's attention/behaviors in a calm and supportive manner as needed. Physical exam: Vital signs reviewed and stable. General: Nontoxic, no distress and appears stated age. Derm: Skin warm and dry, normal coloration for ethnicity. Heat rash on back.. Old bruising/PeriOrbital ecchymosis surrounding left eye with bruising in different stages of healing to bilateral arms and legs Head: Atraumatic, normocephalic and symmetric. Eyes: EOMs intact, no lid lag, and anicteric sclera Mouth: no lip lesions, mucus membranes moist Cardiovascular: regular rate and rhythm with normal S1S2, no murmur, positive posterior tibial pulses bilaterally, and cap refill < 2 seconds. Lungs: Respirations even, regular, and unlabored on room air. Lungs CTA bilaterally, no rhonchi, no rales, no wheezing, and no accessory muscle usage. Abdominal: soft, nontender to palpation, no guarding, no appreciable organomega ly Ext: ROM intact. No gross muscle atrophy, no edema, no contractures. Neuro/Psych: Awake and alert. Patient alert to self only and confused to time, place, and situation. He is currently pleasant and cooperative. A total of 35 minutes of time were spent preparing this complex discharge summary. Pt was discharged on 07/19/23 at 9:47 AM. Patient was seen independently by Nurse Practitioner. This document was prepared using [employer] dictation software. Please allow for errors in psychiatric assistant while rare they do occur. Patient Condition at Discharge: Stable Plan - Discharge Summary Discharge Rx Participant: No New Discharge Prescriptions: New QUEtiapine [SEROquel] 50 mg PO HS 30 Days #60 tab Hydrocortisone Cream [Hydrocortisone 1% Cream] 1 applic TOPICAL TID each QUEtiapine [SEROquel] 25 mg PO DAILY 30 Days #30 tab Continue amLODIPine [Norvasc] 5 mg PO HS Fluticasone Nasal [place] [Flonase Nasal [place]] 1 spr EA NOSTRIL BID Vit C/E/Zn/Coppr/Lutein/Zeaxan [Preservision Areds 2 Softgel] 1 cap PO BID Atorvastatin Calcium [Lipitor] 20 mg PO HS Levothyroxine Sodium 125 mcg PO DAILY atenoloL [Tenormin] 25 mg PO DAILY Famotidine [Pepcid] 20 mg PO BID Melatonin 3 mg PO HS tab Memantine [Namenda] 5 mg PO BID tab Sertraline HCl 150 mg PO HS Acetaminophen Tab [Tylenol] 650 mg PO Q6HR PRN tab PRN Reason: Fever And/ Or Pain Acetaminophen [Tylenol 8 Hour] 650 mg PO Q6H polyethylene glycoL 3350 [Miralax] 17 gm PO DAILY Discontinued OLANZapine [ZyPREXA] 2.5 mg PO HS QUEtiapine [SEROquel] 37.5 mg PO HS Discharge Medication List Fluticasone Nasal [place] [Flonase Nasal [place]] 1 spr EA NOSTRIL BID 12/09/17 [History] amLODIPine [Norvasc] 5 mg PO HS 12/09/17 [History] Vit C/E/Zn/Coppr/Lutein/Zeaxan [Preservision Areds 2 Softgel] 1 cap PO BID 01/07 09/25 [History] Atorvastatin Calcium [Lipitor] 20 mg PO HS 12/24/19 [History] Levothyroxine Sodium 125 mcg PO DAILY 08/27/21 [History] Famotidine [Pepcid] 20 mg PO BID 07/06/23 [History] atenoloL [Tenormin] 25 mg PO DAILY 07/06/23 [History] Acetaminophen Tab [Tylenol] 650 mg PO Q6HR PRN tab 07/12/23 [Rx] Melatonin 3 mg PO HS tab 07/12/23 [Rx] Memantine [Namenda] 5 mg PO BID tab 07/12/23 [Rx] Acetaminophen [Tylenol 8 Hour] 650 mg PO Q6H 07/15/23 [History] Sertraline HCl 150 mg PO HS 07/15/23 [History] polyethylene glycoL 3350 [Miralax] 17 gm PO DAILY 07/15/23 [History] QUEtiapine [SEROquel] 25 mg PO DAILY 30 Days #30 tab 07/18/23 [Rx] QUEtiapine [SEROquel] 50 mg PO HS 30 Days #60 tab 07/18/23 [Rx] Hydrocortisone Cream [Hydrocortisone 1% Cream] 1 applic TOPICAL TID each 07/19/23 [Rx] Follow up Appointment(s)/Referral(s): Sidney Haynes MD [Primary Care Provider] - 1-2 days (Please call for follow-up appointment.) [facility] - As Needed Patient Instructions/Handouts: Dementia (GEN), Memory Loss in Older Adults (GEN) Activity/Diet/Wound Care/Special Instructions: Activity: As tolerated. . Patient requires 24-hour supervision. Diet: Heart healthy and carb consistent diet. Avoid salts, or foods with hidden salts such as canned or boxed foods and frozen dinners. Extra salt makes your heart work harder and traps the fluid in your body for longer. Special Instructions: Administer medications as directed and remember to keep all doctor's appointments and follow-ups as needed. Patient had no outbursts of anger or combative behaviors throughout hospita lization. Recommend limiting distractions by keeping pt's environment quiet and calm, reduce need for complex decision-making, provide frequent reassurance and praise, and kindly redirect patient's attention/behaviors in a calm and supportive manner as needed. Thank you for allowing us to participate in your care, it was truly a pleasure having you for our patient!!! Discharge Disposition: TRANSFER TO SNF/ECF
[2023-07-19] MEDS: FLUTICASONE 50MCG/SPRAY NASAL 16GM EA NOSTRIL SCH ×2 (14:10→23:12)
[2023-07-19] MEDS ORDERED: QUEtiapine 25 MG TAB PO PRN (15:18)
[2023-07-19] MEDS: HYDROCORTISONE 1% CREAM 454 GM JAR TOPICAL SCH ×3 (18:13→21:51)
[2023-07-19] MEDS: amLODIPine 5 MG TAB PO SCH (21:50)
[2023-07-19] MEDS: MELATONIN 3 MG TABLET PO SCH (21:50)
[2023-07-19] MEDS: SERTRALINE 50 MG TAB PO SCH (21:50)
[2023-07-19] MEDS: ATORVASTATIN 20 MG TAB PO SCH (21:51)
[2023-07-20] MEDS: ACETAMINOPHEN TAB 325 MG TAB PO SCH ×2 (05:30→12:55)
[2023-07-20] MEDS: FAMOTIDINE 20 MG TAB PO SCH (08:19)
[2023-07-20] MEDS: MEMANTINE 5 MG TAB PO SCH (08:19)
[2023-07-20] MEDS: LEVOTHYROXINE 125 MCG TAB PO SCH (08:19)
[2023-07-20] MEDS: ENOXAPARIN 40 MG/0.4 ML SYRINGE SQ SCH (08:20)
[2023-07-20] MEDS: atenoloL 25 MG TAB PO SCH (08:20)
[2023-07-20] MEDS: QUEtiapine 25 MG TAB PO SCH ×2 (08:20→12:56)
[2023-07-20] MEDS: polyethylene glycoL 3350 17 GM POWD.PACK PO SCH (08:20)
[2023-07-20] MEDS: HYDROCORTISONE 1% CREAM 454 GM JAR TOPICAL SCH (08:21)
[2023-07-20] MEDS: FLUTICASONE 50MCG/SPRAY NASAL 16GM EA NOSTRIL SCH (08:21)
--- NOTE | 2023-07-20 10:19 | P.DS ---
Providers Date of admission: 07/16/23 16:25 Expected date of discharge: 07/20/23 Attending physician: Alex Smalls MD Consults: 07/16/23 16:22 Consult Physician Routine Consulting Provider: Osmani Casanova Consult Reason/Comments: ams, dementia, agitation Do you want consulting provider notified?: Yes Primary care physician: Sidney Haynes MD Hospital Course: Discharge Diagnosis: Worsening Lewy body dementia with behavioral disturbances Acute on chronic encephalopathy secondary to above. Hypothyroidism, on Synthroid 125 g daily and patient will need to have repeat labs to monitor thyroid function in 6 weeks. Frequent falls Left frontal contusion Dyslipidemia Hypertension History of CVA Miliaria, patient with mild prickly heat rash on his back secondary to sweal. Placed on hydrocortisone 1% cream 3 times daily to rash. Hospital Course: Patient is a very pleasant 82-year-old male with a past medical history of newly body dementia, hypothyroidism, hypertension, hyperlipidemia, and CVA. He presented to the emergency department on 07/16/23 secondary to reports of worsening mental status and combative behaviors. Patient underwent full evaluat ion in the emergency department. Vital signs upon arrival temp 98.0F, heart rate 68, respiratory rate 14, blood pressure 168/85 and SpO2 of 99% on room air. Labs were completed revealing WBC 7, hemoglobin 12, creatinine 1.28 around baseline, troponin negative, blood sugar is 91, urinalysis, toxicology negative. CT head revealing small contusion over the left frontal lobe, no other intracranial abnormalities. Chest x-ray no acute process. EKG independently interpreted, shows sinus bradycardia. Patient was admitted for worsening dementia with behavior disturbances. He was evaluated by psychiatry and medication changes were made. Seroquel was increased. Zyprexa was discontinued. Patient will also continue with sertraline and Namenda. Patient had no further reports of combative behaviors. Medically, patient is stable at this time. Patient being discharged back to [facility]. Discharge instructions included recommending limiting distractions by keeping pt's environment quiet and calm, reduce need for complex decision-making, provide frequent reassurance and praise, and kindly redirect patient's attention/behaviors in a calm and supportive manner as needed. Physical exam: Vital signs reviewed and stable. General: Nontoxic, no distress and appears stated age. Derm: Skin warm and dry, normal coloration for ethnicity. Heat rash on back.. Old bruising/PeriOrbital ecchymosis surrounding left eye with bruising in different stages of healing to bilateral arms and legs Head: Atraumatic, normocephalic and symmetric. Eyes: EOMs intact, no lid lag, and anicteric sclera Mouth: no lip lesions, mucus membranes moist Cardiovascular: regular rate and rhythm with normal S1S2, no murmur, positive posterior tibial pulses bilaterally, and cap refill < 2 seconds. Lungs: Respirations even, regular, and unlabored on room air. Lungs CTA bilaterally, no rhonchi, no rales, no wheezing, and no accessory muscle usage. Abdominal: soft, nontender to palpation, no guarding, no appreciable organomegaly Ext: ROM intact. No gross muscle atrophy, no edema, no contractures. Neuro/Psych: Awake and alert. Patient alert to self only and confused to time, place, and situation. He is currently pleasant and cooperative. A total of 35 minutes of time were spent preparing this complex discharge summary. Pt was discharged on 07/20/23 at 0939. Patient Condition at Discharge: Stable Plan - Discharge Summary Discharge Rx Participant: No New Discharge Prescriptions: New QUEtiapine [SEROquel] 50 mg PO HS 30 Days #60 tab Hydrocortisone Cream [Hydrocortisone 1% Cream] 1 applic TOPICAL TID each QUEtiapine [SEROquel] 25 mg PO DAILY 30 Days #30 tab QUEtiapine [SEROquel] 25 mg PO DAILY@1300 tab Continue amLODIPine [Norvasc] 5 mg PO HS Fluticasone Nasal [place] [Flonase Nasal [place]] 1 spr EA NOSTRIL BID Vit C/E/Zn/Coppr/Lutein/Zeaxan [Preservision Areds 2 Softgel] 1 cap PO BID Atorvastatin Calcium [Lipitor] 20 mg PO HS Levothyroxine Sodium 125 mcg PO DAILY atenoloL [Tenormin] 25 mg PO DAILY Famotidine [Pepcid] 20 mg PO BID Melatonin 3 mg PO HS tab Memantine [Namenda] 5 mg PO BID tab Sertraline HCl 150 mg PO HS Acetaminophen Tab [Tylenol] 650 mg PO Q6HR PRN tab PRN Reason: Fever And/ Or Pain Acetaminophen [Tylenol 8 Hour] 650 mg PO Q6H polyethylene glycoL 3350 [Miralax] 17 gm PO DAILY Discontinued OLANZapine [ZyPREXA] 2.5 mg PO HS QUEtiapine [SEROquel] 37.5 mg PO HS Discharge Medication List Fluticasone Nasal [place] [Flonase Nasal [place]] 1 spr EA NOSTRIL BID 12/09/17 [History] amLODIPine [Norvasc] 5 mg PO HS 12/09/17 [History] Vit C/E/Zn/Coppr/Lutein/Zeaxan [Preservision Areds 2 Softgel] 1 cap PO BID 01/27/18 [History] Atorvastatin Calcium [Lipitor] 20 mg PO HS 12/24/19 [History] Levothyroxine Sodium 125 mcg PO DAILY 08/27/21 [History] Famotidine [Pepcid] 20 mg PO BID 07/06/23 [History] atenoloL [Tenormin] 25 mg PO DAILY 07/06/23 [History] Acetaminophen Tab [Tylenol] 650 mg PO Q6HR PRN tab 07/12/23 [Rx] Melatonin 3 mg PO HS tab 07/12/23 [Rx] Memantine [Namenda] 5 mg PO BID tab 07/12/23 [Rx] Acetaminophen [Tylenol 8 Hour] 650 mg PO Q6H 07/15/23 [History] Sertraline HCl 150 mg PO HS 07/15/23 [History] polyethylene glycoL 3350 [Miralax] 17 gm PO DAILY 07/15/23 [History] QUEtiapine [SEROquel] 25 mg PO DAILY 30 Days #30 tab 07/18/23 [Rx] QUEtiapine [SEROquel] 50 mg PO HS 30 Days #60 tab 07/18/23 [Rx] Hydrocortisone Cream [Hydrocortisone 1% Cream] 1 applic TOPICAL TID each 07/19/23 [Rx] QUEtiapine [SEROquel] 25 mg PO DAILY@1300 tab 07/20/23 [Rx] Follow up Appointment(s)/Referral(s): Sidney Haynes MD [Primary Care Provider] - 1-2 days (Please call for follow-up appointment.) Russ Fleming, [NON-STAFF] - As Needed Patient Instructions/Handouts: Dementia (GEN), Memory Loss in Older Adults (GEN) Activity/Diet/Wound Care/Special Instructions: Activity: As tolerated. . Patient requires 24-hour supervision. Diet: Heart healthy and carb consistent diet. Avoid salts, or foods with hidden salts such as canned or boxed foods and frozen dinners. Extra salt makes your heart work harder and traps the fluid in your body for longer. Special Instructions: Administer medications as directed and remember to keep all doctor's appointments and follow-ups as needed. Patient had no outbursts of anger or combative behaviors throughout hospitalization. Recommend limiting distractions by keeping pt's environment quiet and calm, reduce need for complex decision-making, provide frequent reassurance and praise, and kindly redirect patient's attention/behaviors in a calm and supportive manner as needed. Thank you for allowing us to participate in your care, it was truly a pleasure having you for our patient!!! Discharge Disposition: TRANSFER TO SNF/ECF
[2023-07-20 14:35] VITALS: BP 159/81; PULSE 63; RESP 17; TEMP 97.4
== END 2023-07-20 14:41 ==
LOC: EC 17:45 → 4SSUR 07-16 16:25
PROVIDERS: ADMIT Student in an Organized Health Care Education/Training Program; ATTEND Student in an Organized Health Care Education/Training Program
DX: G93.40 Encephalopathy, unspecified (principal); G31.83 Neurocognitive disorder with Lewy bodies; F02.811 Dementia in other diseases classified elsewhere, unspecified severity, with agitation; S00.83XA Contusion of other part of head, initial encounter; X58.XXXA Exposure to other specified factors, initial encounter; E78.5 Hyperlipidemia, unspecified; I10 Essential (primary) hypertension; G47.30 Sleep apnea, unspecified; N40.0 Benign prostatic hyperplasia without lower urinary tract symptoms; F32.A Depression, unspecified; E89.0 Postprocedural hypothyroidism; F41.9 Anxiety disorder, unspecified; R29.6 Repeated falls; L74.3 Miliaria, unspecified; Z85.828 Personal history of other malignant neoplasm of skin; Z86.73 Personal history of transient ischemic attack (TIA), and cerebral infarction without residual deficits; Z87.891 Personal history of nicotine dependence; Z79.899 Other long term (current) drug therapy; Z79.890 Hormone replacement therapy; Z88.1 Allergy status to other antibiotic agents; Z66 Do not resuscitate
CPT/HCPCS: 96372 ×4; 96376; 96374; 99285; 36415 ×2; 93005; 97162; 97166; 80053; 80048; 84484; 85025 ×2; 85610; 85730; 81003; 80306; 71046; 70450; G0378 ×5; G0480; J2060; J1650 ×4; 80320